=== PATIENT | male | born 1930 | race Caucasian/White ===

== ENCOUNTER 2016-06-21 12:34 | Inpatient (IN) | payer OTHER ==
[2016-06-21] MEDS ORDERED: Sodium Chloride 0.9% 500 ML PRIMARY IV ONE (12:53)
[2016-06-21] MEDS ORDERED: NORMAL SALINE 10 ML SYRINGE FLUSH IVP PRN ×2 (12:53→16:47)
[2016-06-21 13:09] LABS: BASOPHILS # (AUTO) 0.02 10*3/UL; BASOPHILS % (AUTO) 0.3 % (0-1); EOSINOPHILS % (AUTO) 0.9 % (0-8); HEMATOCRIT 39.4 % (42.0-52.0); HEMOGLOBIN 12.9 g/dL (14.0-18.0); IMM GRAN % (AUTO) 0.7 % (0-5); IMM GRAN# (AUTO) 0.05 10*3/UL; LYMPHOCYTES # (AUTO) 1.05 10*3/uL; LYMPHOCYTES % (AUTO) 13.8 % (10-50); MEAN CORPUSCULAR HGB CONC 32.7 g/dL (33-37); MEAN PLATELET VOLUME 9.4 FL (7.4-12.2); MONOCYTES # (AUTO) 0.86 10*3/UL (0.3-0.8); MONOCYTES % (AUTO) 11.3 % (5-15); NEUTROPHILS # (AUTO) 5.55 10*3/UL; RDW COEFFICIENT OF VARIATION 15.6 % (11.5-14.5)
[2016-06-21 13:11] LABS: PLATELET MORPHOLOGY COMMENT NORMAL MORPHOLOGY (NORM)
--- NOTE | 2016-06-21 13:18 | PDOC ---
General Adult HPI - General Chief Complaint: General Medical Stated Complaint: low blood pressure at home Date Seen by Provider: 06/21/16 Time Seen by Provider: 12:40 Source: POSITIVE: Patient Exam Limitations: POSITIVE: No limitations Nurse's Notes Reviewed & Considered: Yes - History of Present Illness Initial Comment: The patient is an 85-year-old male who presents to the emergency department with lightheadedness and low blood pressure. He states that he developed upper respiratory symptoms approximately a week ago. He has had increase in productive cough and shortness of breath. He was seen at the walk-in clinic on the and started on doxycycline. He however has not had any improvement. He also developed some increased swelling in his legs and thought that he may have some component of congestive heart failure. He therefore started taking his diuretic medicine a couple days ago. The swelling in his legs has improved however he still has a small amount of swelling. Today he felt very weak and lightheaded at home and checked his blood pressure. His blood pressure at home was in the 50s. His lightheadedness was worse with standing. He denies any associated chest pain, headache, numbness or weakness in his extremities. He has not had any significant fevers or chills. He does continue to have productive cough. He states he is feeling better currently. On arrival to the emergency room his blood pressure was in the 1 teens with a slight drop with standing. Have you received a tetanus shot in the past 10 years?: Unknown - Patient Home Medications Home Medications: Home Medications Aspirin [Aspirin EC] 81 mg ORAL QD 30 Days 05/15/12 Glucosa Aggarwal 2Kcl/Chondroitin Aggarwal [Glucosamine Chondroitin Caplet] 1 each PO QD 30 Days 05/15/12 Naproxen 250 mg PO BID tab 04/02/14 Cetirizine HCl [Zyrtec] 1 tab PO QD PRN #90 tab 09/07/14 Cholecalciferol (Vitamin D3) [Vitamin D3] 1 cap PO QD #30 cap 04/30/15 Omeprazole [Prilosec] 1 tab PO QD #90 cap 08/24/15 Ranolazine [Ranexa] 1 tab PO BID #180 tab 10/14/15 Albuterol Sulfate [Proair Hfa] 1 - 2 puff INH Q4-6H #1 inhaler 10/21/15 Nitroglycerin 1 tab SL PRN #30 tab 11/05/15 Levothyroxine Sodium 1 tab PO QD #90 tab 11/22/15 Warfarin Sodium [Coumadin] 2.5 mg PO QD #90 tab 11/29/15 Carvedilol [Coreg] 1 tab PO BID #180 tab 01/03/16 Quinapril HCl 1 tab PO QD #90 tab 01/13/16 Nitroglycerin 1 cap PO Q12H #60 cap 04/10/16 Doxycycline Monohydrate 100 mg PO BID #20 cap 06/15/16 Furosemide 40 mg PO BID 06/21/16 Potassium Gluconate [Potassium] 99 mg PO BID 06/21/16 Pravastatin Sodium [Pravachol] 0.5 tab PO QD #45 tab 06/21/16 - Patient Allergies Allergies/Adverse Reactions: Allergies Allergy/AdvReac Type Severity Reaction Status Date / Time Penicillins Allergy Severe anaphylaxsi Verified 06/21/16 12:46 s venom-wasp Allergy Severe RASH Verified 06/21/16 12:46 Past Medical History - heen HEENT History: Cataracts, Dentures/Partials Additional HEENT History: BILAT RETINAL DETACHEMENT/UPPER AND LOWER DENTURES Cardiovascular History: Hypertension, Arrhythmia, Hyperlipidemia Additional Cardiovasular History: 5 vessel CABG/A-FIB/CAROTID ARTERY STENOSIS Respiratory History: Pneumonia Additional Respiratory History: PNEUMONIA MULTIPLE TIMES. 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 Neurological History: Denies History Blood Disorders:  Additional Blood Disorders History: CURRENTLY TAKES ASA/COUMADIN DUE TO TREATMENT FOR AFIB Psychiatric History: Denies History History of Sexually Transmitted Diseases: No Cancer History: Skin History of MDRO: No History of Other Communicable Diseases: No Alcohol Use: Occasionally Substance Use Type: None Previous Surgical History: Yes Type / Date of Surgery: CABG 5 VESSEL 1990/LEFT ERNAL ARTERY STENTING 2007/L PETE 2005/LUMBAR DISC SURGICAL REPAIR 1977/TONSILLECTOMY/RENAL DETACHMENT 2009& 2010/MULTIPLE BASAL CELL CARCINOMAS/BILAT CATERACTS/VASECTOMY Anesthesia Reactions: No Malignant Hyperthermia: No Significant Family History: Heart disease, Cancer, Diabetes, Hypertension Additional Family History: FATHER- DIABETES Past Medical History Reviewed: Reviewed - No Changes ROS - Limitations ROS Limitations: No Limitations Constitution: DENIES: Chills, Fever Cardiovascular: REPORTS: Blood Pressure Problem (Low blood pressure at home prior to coming to the emergency room), Edema. DENIES: Chest Pain, Heart Palpitations Respiratory: REPORTS: Cough Productive (Yellow phlegm), Shortness Of Breath Neurological: DENIES: Headache, Numbness, Weakness Gastrointestinal: REPORTS: Denies GI Symptoms Musculoskeletal: REPORTS: Lower Extremity Swelling Eyes: REPORTS: Denies Symptoms ENT: REPORTS: Denies Symptoms Skin: DENIES: Rash General Adult Exam - General Appearance General Appearance: POSITIVE: Alert, Cooperative, No Acute Distress - HEENT HEENT: POSITIVE: Head Inspection Nml, Eyes Inspection Nml, Ears Inspection Nml, Pharynx Inspect. Nml - Neck Neck: POSITIVE: Normal Inspection - Respiratory Respiratory: POSITIVE: No Respiratory Distress, Other (The patient was hypoxic initially on room air with sats of 87%. This has improved on oxygen per nasal cannula. He has diminished breath sounds on the right and some rhonchi noted on the left most prominent in the base) - Cardiovascular Cardiovascular: POSITIVE: Regular Rate & Rhythm Peripheral Pulses: Dorsalis-pedis (R): 2+, Dorsalis-pedis (L): 2+ - Abdomen Abdomen: Soft: (All Quadrants), Denies Tenderness: (All Quadrants), No Distention: (All Quadrants) - Back Back: POSITIVE: Normal Inspection - Skin Skin: POSITIVE: Normal Color, No Rash - Extremities Extremity: Normal ROM: (All Extremities) Additional Extremities Details: 1+ pitting edema in the lower extremities bilaterally - Neurological / Psychological Neurological: POSITIVE: Oriented X3, Motor Normal, Sensation Normal, Other (No focal neurologic deficits) General Adult Progress - Results Reviewed by me Xrays/CTs/US Reviewed by me: Yes Discussed with Radiologist: Yes Radiology Findings: Portable chest x-ray shows a right-sided pleural effusion per radiologist. CT PE protocol is negative for PE. He does have a medium sized right-sided pleural effusion with airspace disease in the right lower lung per radiologist. Lab Results Reviewed: Yes Lab Results:: Laboratory Results 06/21/16 Range/Units 13:06 WBC 7.60 (4.8-10.8) 10^3/uL RBC 4.60 L (4.70-6.10) 10^6/uL Hgb 12.9 L (14.0-18.0) g/dL Hct 39.4 L (42.0-52.0) % MCV 85.7 (80-90) FL MCH 28.0 (27-31) PG MCHC 32.7 L (33-37) g/dL RDW Std Deviation 48.4 (39-50) fL RDW Coeff of Shivam 15.6 H (11.5-14.5) % Plt Count 242 (140-350) 10*3/uL MPV 9.4 (7.4-12.2) FL Immature Gran % (Auto) 0.7 (0-5) % Neut % (Auto) 73.0 (50-80) % Lymph % (Auto) 13.8 (10-50) % [place] % (Auto) 11.3 (5-15) % Eos % (Auto) 0.9 (0-8) % Baso % (Auto) 0.3 (0-1) % Immature Gran # (Auto) 0.05 10*3/UL Neut # (Auto) 5.55 10*3/UL Lymph # (Auto) 1.05 10*3/uL [place] # (Auto) 0.86 H (0.3-0.8) 10*3/UL Eos # (Auto) 0.07 10*3/UL Baso # (Auto) 0.02 10*3/UL WBC Morphology Comment Normal morphology (NORM) Plt Morphology Comment Normal morphology (NORM) RBC Morph Comment Normal morphology (NORM) PT 38.0 H (9.7-11.4) secs INR 3.59 (0.00-5.90) N/A D-Dimer 0.63 H (0.00-0.59) mg/L Sodium 138 (135-145) meq/L Potassium 5.0 (3.8-5.2) meq/L Chloride 97 L (98-112) meq/L Carbon Dioxide 29 (23-33) meq/L Anion Gap 12 (5-20) BUN 21 (7-22) mg/dL Creatinine 1.1 (0.70-1.50) mg/dL Estimated GFR [employer] BUN/Creatinine Ratio 19.09 (6-20) Glucose 106 (78-110) mg/dL Calculated Osmolality 288.0 (267-292) mOsm/kg Lactic Acid 1.7 (0.70-2.10) MMOL/L Calcium 9.1 (8.7-10.7) mg/dL Magnesium 1.6 (1.6-2.4) mg/dL Total Bilirubin 1.0 (0.3-1.2) mg/dL AST 43 (21-57) IU/L ALT 28 (21-72) IU/L Alkaline Phosphatase 119 (38-126) IU/L Troponin I 0.010 (< 0.040) ng/mL C-Reactive Protein 0.2 (0.0-0.9) mg/dL NT-Pro-B Natriuret Pep 349.0 (0-450) PG/ML Total Protein 7.6 (6.1-8.0) g/dL Albumin 4.5 (3.5-4.8) g/dL Globulin 3.1 (2.50-4.10) g/dL Albumin/Globulin Ratio 1.40 (1.3-2.0) mg/g EKG Interpreted/Reviewed By Me:: Yes EKG Interpretation:: POSITIVE: Other (Atrial fibrillation with no acute ST segment or T-wave changes.) - Patient's Progress MDM / ED Course: The patient's oxygen saturation was 87% on room air on arrival. He was placed on oxygen per nasal cannula. Orthostatic vitals were taken, he had a minimal drop in blood pressure with standing. An IV was established and he did receive a 500 mL bolus of normal saline. Blood cultures and lactate were drawn with IV start. X-ray and laboratory findings were discussed with the patient and his family. He does have a large right-sided pleural effusion and some airspace disease in the right lower lobe. The etiology of this is unclear however may represent a pneumonia with associated effusion. Clinically this would make the most sense. The patient is hypoxic on room air. The patient likely would benefit from drainage of the effusion. The patient is discussed with Dr. Agee has agreed to admit the patient for further treatment. He will be started on antibiotics. He states that he had anaphylactic reactions to penicillins and he therefore does not take penicillins or cephalosporins. He subsequently was given Levaquin 750 mg IV. - Consult Counseled: POSITIVE: Patient, Family, RE: Lab Results, RE: Radiology Results, RE : DX Patient Care Time - Estimated PCT Patient Care Time (In Minutes): 45 Vital Signs - Recent Vital Signs Vital Signs: Vital Signs (Last 8 hours) Temp Pulse Pulse Pulse Pulse Resp BP 06/21/16 12:38 94 98 98 06/21/16 12:35 97.5 F 104 H 24 118/68 BP BP BP Pulse Ox 06/21/16 12:38 115/72 140/28 91/58 06/21/16 12:35 87 - VS Reviewed Vital Signs Reviewed: Yes Discharge Clinical Impression: Pleural effusion on right, Pneumonia, Hypoxia, Chronic atrial fibrillation Discharge Disposition: Admit to Inpatient Condition: Stable Date Decision to Admit to Inpatient: 06/21/16 Time Decision to Admit to Inpatient: 15:00
--- NOTE | 2016-06-21 13:34 | EKG ---
[address] [address] Measurements Intervals [place] Rate: 89 P: [place]: 0 QRS: 65 QRSD: 96 T: 75 QT: 390 QTc: 437 Interpretive Statements ATRIAL FLUTTER/TACHYCARDIA NONSPECIFIC T-WAVE ABNORMALITY ABNORMAL RHYTHM ECG No previous ECG available for comparison Electronically Signed On 06-21-16 16:13:28 MST by Juan Escamilla [id number]
[2016-06-21 13:36] LABS: BLOOD UREA NITROGEN 21 mg/dL (7-22); BUN/CREATININE RATIO 19.09 (6-20); CHLORIDE 97 meq/L (98-112); CREATININE 1.1 mg/dL (0.70-1.50); SODIUM 138 meq/L (135-145)
[2016-06-21 13:37] LABS: ASPARTATE AMINO TRANSFERASE 43 IU/L (21-57); C-REACTIVE PROTEIN 0.2 mg/dL (0.0-0.9); CALCIUM 9.1 mg/dL (8.7-10.7); GLUCOSE 106 mg/dL (78-110); LACTATE 1.7 MMOL/L (0.70-2.10); MAGNESIUM 1.6 mg/dL (1.6-2.4); TOTAL PROTEIN 7.6 g/dL (6.1-8.0)
--- NOTE | 2016-06-21 14:24 | DI ---
CT CTA CHEST NONCORONARY W/WO,06/21/2016 1:50 PM: Clinical History: Hypoxia and elevated d-dimer. Previous Exam: November 19, 2015 Findings: Multiple helically acquired CT images are obtained following the intravenous administration of 75 cc of Isovue 300. The pulmonary arteries are normal without filling defect or truncation. Postsurgical changes are seen consistent with CABG. Peripheral vascular calcifications are also seen. There is airspace disease within the right lung base. There is a medium-sized right pleural effusion . Diffuse degenerative changes of the spine are noted. The liver, spleen and pancreas are not completely evaluated, but are unremarkable. Impression: 1. Enlarging right pleural effusion. 2. No evidence of pulmonary embolism. 3. Airspace disease within the right lung base. Cannot rule out an underlying mass. Recommend followu p imaging after treatment of the pleural effusion.
--- NOTE | 2016-06-21 14:26 | DI ---
XR CXR 1VW,06/21/2016 12:53 PM: Clinical History: Hypoxia Previous Exam: None at this facility. Findings: A single frontal radiograph of the chest is obtained, and demonstrates a large right pleural effusion . Postsurgical changes are seen consistent with prior CABG. Impression: Large right pleural effusion.
[2016-06-21] MEDS ORDERED: Levofloxacin 750mg (Premix) 750 MG in Dextrose 1 BAG IV ONE (15:02)
--- NOTE | 2016-06-21 17:01 | PDOC ---
History and Physical - History of Present Illness Date and Time of Service: 06/21/2016 5 PM Chief Complaint: Cough, shortness of breath for a week. Dizziness and low blood pressure today. History of Present Illness: This is 85 years old male with medical history significant for history of coronary artery disease with previous CABG, atrial fibrillation, hypertension, history of melanoma resection last year, hyperlipidemia, hypothyroidism who started to develop coughing he said probably about 10 days ago with some phlegm production which is yellow, symptoms got worse so a week ago he went to the urgent clinic they gave him doxycycline and prednisone. Maybe the cough somewhat better but he developed swelling in his legs on Sunday and started to take Lasix on Sunday. Today he felt earlier dizzy, lightheaded so he checked his blood pressure and he reported that his blood pressure was low in the 50s systolic and because of that he came into the ER. His blood pressure was normal when he came in the ER but did drop when he stood up. He had investigation that included a CT of the chest which showed a moderate-sized pleural effusion. He is admitted for further management. He did get a dose of antibiotics and a bolus of fluid. He did report some shortness of breath that been going on for few weeks. The swelling in his legs he said it's better. Past Medical History Medical History: 1. Coronary artery disease status post CABG in . 2. History of diabetes said he lost significant weight and he is not on any medication now. 3. Atrial fibrillation on anticoagulation. 4. Hypertension. 5. Hypothyroidism. 6. Hyperlipidemia. 7. 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 8. GERD. 9. Renal artery stenosis status post left renal artery stenting 2007. 10. History of melanoma of the right forearm status post to excision a year ago. 11. History of basal cell carcinoma Surgical History: 1. CABG. 2. Left endarterectomy. 3. Left total hip arthroplasty. 4. Herniated lumbar disc surgery and 80. 5. Right retinal detachment status post surgery in 2009. 6. History of left retinal discharge was status post surgery 2010 Pertinent Family History: Father at age 87 with cerebrovascular disease and questionable hypertension. Mother at age 87 from "old age" with a history of hypertension and a non-malignant abdominal tumor Tobacco Use: Former Smoker Substance Use Type: None Alcohol Use: Occasionally Medication / Allergies Home Medications: Home Medications Medication Instructions Recorded Confirmed Type Aspirin [Aspirin EC] 81 mg ORAL QD 30 Days 05/15/12 06/21/16 Clinic Glucosa Aggarwal 2Kcl/Chondroitin Aggarwal 1 each PO QD 30 Days 05/15/12 06/21/16 Clinic [Glucosamine Chondroitin Caplet] Naproxen 250 mg PO BID tab 04/02/14 06/21/16 History Cetirizine HCl [Zyrtec] 1 tab PO QD PRN #90 tab 09/07/14 06/21/16 Clinic Cholecalciferol (Vitamin D3) 1 cap PO QD #30 cap 04/30/15 06/21/16 Clinic [Vitamin D3] Omeprazole [Prilosec] 1 tab PO QD #90 cap 08/24/15 06/21/16 Clinic Ranolazine [Ranexa] 1 tab PO BID #180 tab 10/14/15 06/21/16 Clinic Albuterol Sulfate [Proair Hfa] 1 - 2 puff INH Q4-6H #1 inhaler 10/21/15 Clinic Nitroglycerin 1 tab SL PRN #30 tab 11/05/15 06/21/16 Clinic Levothyroxine Sodium 1 tab PO QD #90 tab 11/22/15 06/21/16 Clinic Warfarin Sodium [Coumadin] 2.5 mg PO QD #90 tab 11/29/15 06/21/16 Clinic Carvedilol [Coreg] 1 tab PO BID #180 tab 01/03/16 06/21/16 Clinic Quinapril HCl 1 tab PO QD #90 tab 01/13/16 06/21/16 Clinic Nitroglycerin 1 cap PO Q12H #60 cap 04/10/16 06/21/16 Clinic Doxycycline Monohydrate 100 mg PO BID #20 cap 06/15/16 06/21/16 Clinic Furosemide 40 mg PO BID 06/21/16 06/21/16 History Potassium Gluconate [Potassium] 99 mg PO BID 06/21/16 06/21/16 History Pravastatin Sodium [Pravachol] 0.5 tab PO QD #45 tab 06/21/16 Clinic Allergies/Adverse Reactions: Allergies Allergy/AdvReac Type Severity Reaction Status Date / Time Penicillins Allergy Severe anaphylaxsi Verified 06/22/16 06:23 s venom-wasp Allergy Severe RASH Verified 06/22/16 06:23 Review of Systems - Review of Systems All Systems: Reviewed & No Additional Complaints Except as Stated Exam - Vitals Vital Signs: Vital Signs Height 5 ft 9.5 in Weight 213 lb 4.8 oz - General General Appearance: POSITIVE: No Acute Distress, Cooperative - Head Head Exam: POSITIVE: Normal Inspection, Atraumatic - Eye Eye Exam: POSITIVE: Normal Appearance - ENT ENT Exam: POSITIVE: Normal Exam - Neck Neck Exam: POSITIVE: Normal Inspection - Respiratory Additional Respiratory Exam Details: Decreased breath sounds on the right midlung and down posteriorly - Cardiovascular Cardiovascular Exam: POSITIVE: Irregular Rhythm - GI/Abdominal GI/Abdominal Exam: POSITIVE: Normal Bowel Sounds, Non Tender, Non Distended, Soft - Rectal Rectal Exam: POSITIVE: Deferred - External Exam: POSITIVE: Deferred - Extremities Extremities Exam: POSITIVE: Pedal Edema - Back Back Exam: POSITIVE: Normal Inspection - Neurological Neurological Exam: POSITIVE: Alert, Oriented x 3, CN II-XII Intact, Moves All Extremities Equally - Psychiatric Psychiatric Exam: POSITIVE: Normal Affect - Integumentary Integumentary Exam: POSITIVE: Normal Color Results - Labs CBC and BMP: 06/21/16 13:06 06/21/16 13:06 Assessment and Plan - Patient Problems (1) Pleural effusion, right Current Visit: Yes Status: Acute Comment: Not sure if there is a pneumonia as his white count is normal I think we will treat as such until we figure out what's the reason for the effusion. I did talk to him about thoracocentesis and he is okay with that and I did tell him that we need to reverse the effect of the Coumadin first and he is okay getting vitamin K. We'll give vitamin K and order an ultrasound guided thoracocentesis tomorrow. (2) Pneumonia Current Visit: Yes Status: Acute Comment: There is a question of pneumonia although its not clear, I think we'll continue with antibiotics for now. Waiting for cultures. (3) Chronic atrial fibrillation Current Visit: Yes Status: Acute Comment: Continue previous medication but will see his blood pressure and then decide whether we need to cut back on the dosage of his medications. But hold off on the Coumadin for now. (4) Hypothyroidism Current Visit: Yes Status: Acute Comment: Same medications (5) Hyperlipidemia Current Visit: Yes Status: Acute Comment: Same medications
[2016-06-21] MEDS: Pravastatin Tab 40 MG TAB PO SCH (20:23)
[2016-06-21] MEDS ORDERED: CARVEDILOL 12.5 MG TABLET PO SCH (21:00)
[2016-06-21] MEDS: NITROGLYCERIN 6.5 MG PO SCH (21:00)
[2016-06-21] MEDS: RANOLAZINE 500 MG PO SCH (21:23)
[2016-06-21] MEDS ORDERED: Senna Tab 8.6 MG TAB PO PRN (23:30)
[2016-06-22] MEDS: LEVOTHYROXINE 50 MCG TABLET PO SCH (05:34)
[2016-06-22 06:51] LABS: PROTHROMBIN TIME 16.9 secs (9.7-11.4)
[2016-06-22] MEDS ORDERED: PHYTONADIONE 10 MG/1 ML AMPULE ONE (07:12)
--- NOTE | 2016-06-22 07:22 | PDOC(PROG) ---
Date and Time of Service: 06/22/2016 7:19 AM Interval History: Subjective Patient feels better he is not dizzy anymore, continued to cough still there is some yellow phlegm production. Also have a postnasal drip based on His description. No shortness of breath. Objective : Data - Labs CBC and BMP: 06/21/16 13:06 06/21/16 13:06 Labs - Last 24 Hours: Laboratory Results 06/22/16 Range/Units 06:06 PT 16.9 H (9.7-11.4) secs INR 1.62 (0.00-5.90) N/A Objective : Exam - General General Appearance: No Acute Distress, Cooperative - Head Head Exam: Normal Inspection, Atraumatic - Eye Eye Exam: Normal Appearance - ENT ENT Exam: Normal Exam - Neck Neck Exam: Normal Inspection - Respiratory Additional Respiratory Exam Details: Decreased breath sounds right side from midlung and down posteriorly - Cardiovascular Cardiovascular Exam: Irregular Rhythm - GI/Abdominal GI/Abdominal Exam: Normal Bowel Sounds, Non Tender, Non Distended, Soft - Rectal Rectal Exam: Deferred - External Exam: Deferred - Extremities Extremities Exam: Normal Inspection - Back Back Exam: Normal Inspection - Neurological Neurological Exam: Alert, CN II-XII Intact - Psychiatric Psychiatric Exam: Normal Affect - Integumentary Integumentary Exam: Normal Color Assessment and Plan - Patient Problems (1) Pleural effusion, right Current Visit: Yes Status: Acute Comment: INR is 1.6 I spoke yesterday with the radiology who wanted the level to be 1.5 or lower, the patient wanted to have the procedure as soon as possible he does not want to wait so he is okay getting another vitamin K so we' ll give it to him and then we'll recheck his INR again. Hopefully will be able to do it today. we'll send it for usual testing. (2) Pneumonia Current Visit: Yes Status: Acute Comment: Question of pneumonia continue with antibiotics. (3) Chronic atrial fibrillation Current Visit: Yes Status: Acute Comment: Continue same medication, will increase his the dosage of the Coreg as his blood pressure seems to be higher now. We'll see what happened to his heart rate post drainage if it remain fast with metastatic additional medications (4) Hypothyroidism Current Visit: Yes Status: Acute Comment: Same medications. (5) Hyperlipidemia Current Visit: Yes Status: Acute Comment: Same medications (6) Sinusitis Current Visit: Yes Status: Acute Comment: I think there is also sinusitis will add steroid nasal spray.
[2016-06-22] MEDS ORDERED: Sodium Chloride 0.9% 50 ML IV ONE (07:31)
[2016-06-22] MEDS ORDERED: CARVEDILOL 12.5 MG TABLET PO SCH (09:00)
[2016-06-22] MEDS ORDERED: QUINAPRIL 20 MG TABLET PO SCH ×2 (09:00→21:00)
[2016-06-22] MEDS: CARVEDILOL 12.5 MG TABLET PO SCH ×2 (09:02→20:12)
[2016-06-22] MEDS: NITROGLYCERIN 6.5 MG PO SCH ×2 (09:03→20:13)
[2016-06-22] MEDS: ASPIRIN EC 81 MG TABLET PO SCH (09:03)
[2016-06-22] MEDS: OMEPRAZOLE 20 MG CAPSULE PO SCH (09:03)
[2016-06-22] MEDS: FLUTICASONE PROPIONATE 16 GRAM (120 SPRAYS / BOTTLE) ENOS SCH (09:03)
[2016-06-22] MEDS: DOCUSATE 100 MG CAPSULE PO SCH ×2 (09:03→20:13)
[2016-06-22] MEDS: RANOLAZINE 500 MG PO SCH ×2 (11:59→20:12)
[2016-06-22 12:37] LABS: PROTHROMBIN TIME 13.7 secs (9.7-11.4)
[2016-06-22] MEDS: Levofloxacin 750mg (Premix) 750 MG in Dextrose 1 BAG IV SCH (17:30)
[2016-06-22 17:45] LABS: WBC,PLEURAL FLUID 1.863 10^3/uL
[2016-06-22 17:46] LABS: RBC, BODY FLUID 0.103 10*6/uL; WBC, BODY FLUID 1.863 10*3/uL
--- NOTE | 2016-06-22 19:16 | EKG ---
[address] [place] [address] Measurements Intervals [place] Rate: 106 P: [place]: 0 QRS: 51 QRSD: 96 T: 180 QT: 357 QTc: 419 Interpretive Statements ATRIAL FIBRILLATION WITH RAPID VENTRICULAR RESPONSE NONSPECIFIC ST & T-WAVE ABNORMALITY Compared to ECG 06/21/2016 13:34:34 Atrial flutter no longer present T-wave abnormality still present Electronically Signed On 06-23-16 17:26:26 MST by Juan Escamilla [id number]
[2016-06-22] MEDS: Pravastatin Tab 40 MG TAB PO SCH (20:13)
[2016-06-22] MEDS ORDERED: QUINAPRIL 10 MG PO SCH (21:00)
--- NOTE | 2016-06-22 21:29 | DI ---
THORACENTESIS,06/22/2016 9:00 AM: Clinical History: Right pleural effusion and history of melanoma. Previous Exam: CT angiogram of the chest performed June 21, 2016 Procedure: Risks, benefits, and alternatives were explained to the patient and informed written conse nt obtained. Prescreening was used to evaluate the right pleural effusion. The patient was placed in the sitting position, and the posterior chest wall prepped and draped in us ua sterile fashion. 1% lidocaine was used for local anesthesia. A small skin incision was made and a 5 M[place] catheter was advanced into the pleural space through th e bore of a large thoracentesis needle. Approximately 700 cc of sanguinous fluid was removed until the patient started to cough. Post procedure imaging demonstrated a smaller but still significant right pleural effusion. The patient tolerated the procedure well and the specimen was sent for evaluation to the laboratory. Findings: Preprocedure images demonstrate a large right pleural effusion. Post procedure imaging demonstrates decreased size of a right pleural effusion. Impression: Successful right pleural effusion. Only 700 cc of fluid were removed. If there is further need for pl euracentesis, recommend further consultation. The amount of fluid removed was intentionally limited to prevent flash pulmonary edema.
--- NOTE | 2016-06-22 21:32 | DI ---
XR CXR 1VW,06/22/2016 6:05 PM: Clinical History: Status post thoracentesis. Previous Exam: June 21, 2016 Findings: A single frontal radiograph of the chest is obtained, and demonstrates mild interval decrease in size of a right pleural effusion. There is some prominence of the lower mediastinum in the region of the costomanubrial joint. Postsurgical changes are also seen involving the cardiomediastinum consistent with CABG. There is no evidence of pneumothorax. Degenerative changes of the shoulders are seen. Impression: Slightly improved right pleural effusion with significant residual right pleural effusion. No evidence of pneumothorax.
[2016-06-23] MEDS: LEVOTHYROXINE 50 MCG TABLET PO SCH (05:38)
--- NOTE | 2016-06-23 08:19 | PDOC(PROG) ---
Date and Time of Service: 06/23/2016 8:15 AM Interval History: subjective Patient's feel better, he is denying shortness of breath. Still having the cough that's mainly when he lays down he said. Did mention for the first time that he has some reflux symptoms being going on for years sometimes he fell that evening goes to his nose. He has also at times trouble swallowing. Objective : Data - Labs CBC and BMP: 06/21/16 13:06 06/21/16 13:06 Labs - Last 24 Hours: Laboratory Results 06/22/16 06/22/16 06/22/16 Range/Units 06:00 12:00 16:59 PT 13.7 H (9.7-11.4) secs INR 1.32 (0.00-5.90) N/A Lactate Dehydrogenase 481 (313-618) IU/L Fluid Type Pleural Fluid WBC 1.863 10*3/uL Fluid RBC 0.103 10*6/uL Fluid Polynuclear WBCs 14.4 % Fluid Mononuclear WBCs 85.6 % Fluid Glucose 115 Fluid Total Protein 4.8 Pleural pH 8 Pleural WBC 1.863 10^3/uL Pleural Mononuclear 85.6 % Pleural Polynuclear WBC 14.4 % Objective : Exam - General General Appearance: No Acute Distress, Cooperative - Head Head Exam: Normal Inspection - Eye Eye Exam: Normal Appearance - ENT ENT Exam: Normal Exam - Neck Neck Exam: Normal Inspection - Respiratory Additional Respiratory Exam Details: Decreased breath sounds on the right lung base - Cardiovascular Cardiovascular Exam: Irregular Rhythm - GI/Abdominal GI/Abdominal Exam: Normal Bowel Sounds, Non Tender, Non Distended, Soft - Rectal Rectal Exam: Deferred - Extremities Extremities Exam: Normal Inspection - Back Back Exam: Normal Inspection - Neurological Neurological Exam: Alert, Oriented x 3, CN II-XII Intact - Psychiatric Psychiatric Exam: Normal Affect Assessment and Plan - Patient Problems (1) Pleural effusion, right Current Visit: Yes Status: Acute Comment: The protein content suggest this is an exeduative effusion, there is predominance of mononuclear cells. I don't have the LDH level yet. Continue antibiotics this may be a parapneumonic effusion. We did send for cytology. I did tell him that post discharge this need to be followed up, to make sure that it resolves. He told me that he was supposed to have a PET scan yesterday however he is here in the hospital. And he will reschedule his appointment. Apparently there was a spots on the right lung and small pleural effusion on the CT that he had 3 months ago. That's was done in [place]. (2) Pneumonia Current Visit: Yes Status: Acute Comment: We treating as a possible pneumonia continue antibiotics. Will do a swallow evaluation (3) Chronic atrial fibrillation Current Visit: Yes Status: Acute Comment: His heart rate is more on the fast side I was thinking of adding maybe digoxin but he wanted me to speak with Dr. Bragg before I adjust medication so I'll call him first. I think we can restart his Coumadin (4) Hypothyroidism Current Visit: Yes Status: Acute Comment: Same medications (5) Hyperlipidemia Current Visit: Yes Status: Acute Comment: Same med (6) Sinusitis Current Visit: Yes Status: Acute Comment: Same med
[2016-06-23] MEDS: ASPIRIN EC 81 MG TABLET PO SCH (08:39)
[2016-06-23] MEDS: OMEPRAZOLE 20 MG CAPSULE PO SCH (08:39)
[2016-06-23] MEDS: CARVEDILOL 12.5 MG TABLET PO SCH ×2 (08:39→20:33)
[2016-06-23] MEDS: FLUTICASONE PROPIONATE 16 GRAM (120 SPRAYS / BOTTLE) ENOS SCH (08:39)
[2016-06-23] MEDS: RANOLAZINE 500 MG PO SCH ×2 (08:40→20:33)
[2016-06-23] MEDS: DOCUSATE 100 MG CAPSULE PO SCH ×2 (08:40→20:34)
[2016-06-23] MEDS: NITROGLYCERIN 6.5 MG PO SCH ×2 (08:40→20:33)
[2016-06-23] MEDS: DIGOXIN 125 MCG TABLET PO SCH (10:19)
--- NOTE | 2016-06-23 12:23 | PTI REPORT ---
Thank you for the referral of Joni Restrepo. He was seen on 06/22/16 for an inpatient evaluation secondary to pneumonia. SUBJECTIVE: The patient is an 85-year-old male. At the time of the evaluation the patient' s was present. She states prior to coming to the hospital he was very active at home; he was not using any type of assistive device, was not on oxygen , and he was chopping his own wood. The patient states he was brought to the hospital due to not feeling well and being admitted due to pneumonia. The patient made comments about having difficulty aspirating on fluids. Please see the occupational therapy evaluation for further details. PAST MEDICAL HISTORY: Past medical history can be found in the patient's medical record. OBJECTIVE FINDINGS: Pain: The patient reports pain in his left shoulder only. Bed mobility: The patient is able to perform bed mobility with stand by assistance. Ambulation: The patient is able to ambulate over 100 feet with the use of front wheeled walker, gait belt, and stand by assistance. Range of motion: The patient's upper extremity and lower extremity active range of motion are within functional limits. Strength: The patient's bilateral lower extremity strength was 5-/5. Balance: The patient has good standing balance at this time with the use of the front wheeled walker. Oxygen: At the time of the evaluation the patient was on one liter of oxygen via nasal cannula. ASSESSMENT: Problem List: Decreased endurance Decreased ability to perform independent tasks Physical Therapy Goals: To be met by discharge from inpatient: Patient will be able to tolerate up to 45 minutes of continuous activity in order to return home to perform baseline level of activity safely and without difficulty. TREATMENT PLAN: Patient will be seen B.I.D during the week and one time per day over the weekend as an inpatient to address the above goals and objectives. INITIAL TREATMENT: Treatment today consisted of the initial evaluation by PT and OT followed by the patient ambulating all the way downstairs with the use of the front wheeled walker, gait belt, and contact guard assistance without his oxygen. While down in therapy the patient's oxygen saturation was taken and he was placed back on one liter of oxygen in order to raise his oxygen saturation above 90%. He was able to perform the new step x10 minutes followed by an obstacle course on even and uneven surfaces, traversing over obstacles. This was followed by participating with occupational therapy exercises. While in the hospital we will progress with endurance activities. ISRA
[2016-06-23] MEDS ORDERED: DIGOXIN 125 MCG TABLET PO ONE (15:40)
--- NOTE | 2016-06-23 16:28 | OTI REPORT ---
Thank you for the referral of Joni Restrepo. He was seen on 06/22/16 for an occupational therapy inpatient evaluation secondary to pneumonia. SUBJECTIVE: The patient is an 85-year-old male who is being seen secondary to having pneumonia. The patient reports that he lives at home with his . Prior to admission he was independent with all activities of daily living. He states he likes to drive and complete things around his home. He states he is typically pretty independent with most daily skills. The patient reports that his main pain is coming from his chest from coughing. PAST MEDICAL HISTORY: Past medical history can be found in the patient's medical record. OBJECTIVE FINDINGS: Pain: The patient rates the pain in his chest as a 4/10 on the verbal analog scale (0=no pain, 10=worst pain). Strength: The patient demonstrated right shoulder strength of 4/5, elbow flexion /extension of 4/5, and wrist flexion extension of 4+/5. Strength in the left shoulder was 2/5. Range of motion: The patient does have a rotator cuff on the left side that has been long standing and he demonstrates approximately 40 degrees of shoulder flexion and 20 degrees of shoulder abduction. The left shoulder demonstrates minimal rotation. Activities of daily living: The patient was able to doff and don lower extremity clothing independently after set up. Transfers: The patient requires stand by to contact guard assist to perform functional transfers. Oxygen: The patient was on one liter of oxygen; he states he is typically not on oxygen in his home. ASSESSMENT: At this time the patient would benefit from skilled occupational therapy to address overall activity tolerance, energy conservation techniques, and to improve his overall strength and endurance. Short-Term Goals: To be met by discharge from inpatient: Patient will learn three energy conservation techniques that would improve his ability to conserve energy secondary to the pneumonia. Patient will be able to complete a shower independently. Patient will improve upper extremity strength to 5/5 to improve overall strength for functional transfers and daily living skills. Long-Term Goals: To be met following discharge from inpatient: Patient will be able to return home, demonstrating safety and independence with all activities of daily living and functional tasks. TREATMENT PLAN: Patient will be seen B.I.D during the week and one time per day over the weekend as an inpatient to address the above goals and objectives. INITIAL TREATMENT: Treatment today consisted of the initial evaluation followed by the patient completing lower extremity dressing independently after set up. ISRA
--- NOTE | 2016-06-23 16:59 | OTI REPORT ---
Thank you for the referral of Joni Restrepo. He was seen on 06/23/16 for an occupational therapy swallow evaluation secondary to pneumonia. SUBJECTIVE: The patient is an 85-year-old male who is being seen for a bedside swallow evaluation. He reports that he has acid reflux at night; sometimes it comes up into his sinuses and he can start to lose his breath as well as choke on some of the acid reflux that's coming up. He got to thinking about his swallowing troubles and he states that he has had them for approximately one year. He states sometimes he will choke when he swallows. He says that he does feel like it has gotten into his windpipe instead of his esophagus. The patient state he has had two weeks of pretty extreme coughing and sometimes he does struggle to swallow. The patient reports that he doesn't necessarily choke or cough on liquids, it is usually regular type foods that are going down into the throat. PAST MEDICAL HISTORY: Past medical history can be found in the patient's medical record. OBJECTIVE FINDINGS: Pre-Swallow Activities: Alertness and responsiveness: The patient was alert and responsive. Reliable responses: The patient had reliable yes and no responses. Facial symmetry: The patient demonstrated good facial symmetry. Volitional dry swallow: The patient demonstrated a volitional dry swallow. Following directions: The patient was able to follow two step directions. Cough: The patient's cough was very raspy. Nutrition and intake method: Nutrition and intake method over the last 24-hours has been a regular diet with thin liquids. Oxygen: The patient is on one liter of oxygen today; he is not normally on oxygen. Secretions: The patient demonstrated being able to handle his own secretions. Dentures: The patient does have dentures on the top and the bottom but he states that they are wore out. He does have a clicking in his jaw and the teeth but his dentist told him this was because the dentures were wore out. Lip control: The patient demonstrated good lip control. Lingual function: The patient demonstrated good lingual function for range of motion, strength, and coordination. Sensation: His sensation on the buccal, labial, and lingual areas were within normal limits. Gag reflex: The patient had an intact gag reflex. Feeding Assessment: Today we started with thin liquids including water. The patient was able to take several sips of water from a cup as well as a straw and did not demonstrate external signs of aspiration. His laryngeal elevation was slightly impaired; he has about 50% of laryngeal elevation on the three finger swallow. We went to pureed food; he had good bolus control and good swallow transit time with one to two swallows per bolus. Laryngeal elevation was approximately 50%. The patient was negative for coughing, pocketing, and drooling. His voice post feed was the same. We then went to mechanical soft including diced fruit and regular foods including bread and turkey as well as a dry cracker. The patient demonstrated good bolus control. His swallow transit time was within normal limits with one to two swallows per bolus. He was asked to take some water with the food. His laryngeal elevation was approximately 50% He was negative for cough after the swallow. He did cough once in a while; this could be from being sick with pneumonia or from the food itself. The patient has been taking medication with thin liquid at this point. The patient was able to self feed and position himself during the assessment. His swallow appears to be efficient for adequate PO intake; however, because of his decreased hyoid cartilage elevation and larynx abilities as well as his history including his swallow concerns, it would be highly beneficial for the patient to complete a modified barium swallow study at this point in time. The patient did not demonstrate aspiration externally with thin liquid or with regular food items. RECOMMENDATIONS: 1. Patient will complete a modified barium swallow study. 2. Patient should be sitting in an upright position at all times. 3. Patient should alternate bites of food with sips of liquid. ASSESSMENT: [] Short-Term Goals: To be met by discharge from inpatient: Patient will be able to [] Patient will be able to [] Patient will be able to [] Patient will be able to [] Long-Term Goals: To be met following discharge from inpatient: Patient will be able to [] Patient will be able to [] TREATMENT PLAN: Patient will be seen B.I.D during the week and one time per day over the weekend as an inpatient to address the above goals and objectives.[] INITIAL TREATMENT: [] MTDD
[2016-06-23] MEDS: Levofloxacin 750mg (Premix) 750 MG in Dextrose 1 BAG IV SCH (17:16)
[2016-06-23] MEDS: Pravastatin Tab 40 MG TAB PO SCH (20:34)
[2016-06-23] MEDS ORDERED: Warfarin 5 MG TAB PO SCH (21:00)
[2016-06-23] MEDS ORDERED: QUINAPRIL 10 MG PO SCH (21:00)
[2016-06-24] MEDS: LEVOTHYROXINE 50 MCG TABLET PO SCH (05:38)
[2016-06-24 05:59] LABS: BASOPHILS # (AUTO) 0.02 10*3/UL; BASOPHILS % (AUTO) 0.3 % (0-1); EOSINOPHILS % (AUTO) 1.5 % (0-8); HEMATOCRIT 38.6 % (42.0-52.0); HEMOGLOBIN 12.4 g/dL (14.0-18.0); IMM GRAN % (AUTO) 0.8 % (0-5); IMM GRAN# (AUTO) 0.06 10*3/UL; LYMPHOCYTES # (AUTO) 1.08 10*3/uL; LYMPHOCYTES % (AUTO) 14.3 % (10-50); MEAN CORPUSCULAR HEMOGLOBIN 27.1 PG (27-31); MEAN CORPUSCULAR HGB CONC 32.1 g/dL (33-37); MEAN PLATELET VOLUME 9.6 FL (7.4-12.2); MONOCYTES # (AUTO) 0.86 10*3/UL (0.3-0.8); MONOCYTES % (AUTO) 11.4 % (5-15); NEUTROPHILS % (AUTO) 71.7 % (50-80); RDW COEFFICIENT OF VARIATION 15.3 % (11.5-14.5); RED BLOOD COUNT 4.58 10^6/uL (4.70-6.10); WHITE BLOOD COUNT 7.53 10^3/uL (4.8-10.8)
[2016-06-24 06:16] LABS: PLATELET MORPHOLOGY COMMENT NORMAL MORPHOLOGY (NORM)
[2016-06-24 06:27] LABS: BUN/CREATININE RATIO 18.88 (6-20); CALCIUM 8.9 mg/dL (8.7-10.7); CREATININE 0.9 mg/dL (0.70-1.50); POTASSIUM 4.3 meq/L (3.8-5.2); PROTHROMBIN TIME 12.3 secs (9.7-11.4)
--- NOTE | 2016-06-24 07:52 | PDOC(PROG) ---
Date and Time of Service: 06/24/2016 7:49 AM Interval History: Subjective Patient feels a lot better, the postnasal drip is much improved, the cough is much improved. Breathing is better. He is not dizzy or lightheaded anymore. They could not do the modified barium study yesterday because the machine broke. I did give the occupational therapist the request from and they will call him once the machine is fixed to have the test done and I told him about that. Objective : Data - Labs CBC and BMP: 06/24/16 05:49 06/24/16 05:49 Labs - Last 24 Hours: Laboratory Results 06/24/16 Range/Units 05:49 WBC 7.53 (4.8-10.8) 10^3/uL RBC 4.58 L (4.70-6.10) 10^6/uL Hgb 12.4 L (14.0-18.0) g/dL Hct 38.6 L (42.0-52.0) % MCV 84.3 (80-90) FL MCH 27.1 (27-31) PG MCHC 32.1 L (33-37) g/dL RDW Std Deviation 46.4 (39-50) fL RDW Coeff of Shivam 15.3 H (11.5-14.5) % Plt Count 205 (140-350) 10*3/uL MPV 9.6 (7.4-12.2) FL Immature Gran % (Auto) 0.8 (0-5) % Neut % (Auto) 71.7 (50-80) % Lymph % (Auto) 14.3 (10-50) % [place] % (Auto) 11.4 (5-15) % Eos % (Auto) 1.5 (0-8) % Baso % (Auto) 0.3 (0-1) % Immature Gran # (Auto) 0.06 10*3/UL Neut # (Auto) 5.40 10*3/UL Lymph # (Auto) 1.08 10*3/uL [place] # (Auto) 0.86 H (0.3-0.8) 10*3/UL Eos # (Auto) 0.11 10*3/UL Baso # (Auto) 0.02 10*3/UL WBC Morphology Comment Normal morphology (NORM) Plt Morphology Comment Normal morphology (NORM) RBC Morph Comment Normal morphology (NORM) PT 12.3 H (9.7-11.4) secs INR 1.19 (0.00-5.90) N/A Sodium 132 L (135-145) meq/L Potassium 4.3 (3.8-5.2) meq/L Chloride 95 L (98-112) meq/L Carbon Dioxide 28 (23-33) meq/L Anion Gap 9 (5-20) BUN 17 (7-22) mg/dL Creatinine 0.9 (0.70-1.50) mg/dL Estimated GFR (>60 ml/min/1.73m(2)) BUN/Creatinine Ratio 18.88 (6-20) Glucose 126 H (78-110) mg/dL Calculated Osmolality 277.0 (267-292) mOsm/kg Calcium 8.9 (8.7-10.7) mg/dL Objective : Exam - General General Appearance: No Acute Distress, Cooperative - Head Head Exam: Normal Inspection, Atraumatic - Eye Eye Exam: Normal Appearance - ENT ENT Exam: Normal Exam - Neck Neck Exam: Normal Inspection - Respiratory Additional Respiratory Exam Details: Still have some decreased breath sound on the right lung posteriorly - Cardiovascular Cardiovascular Exam: Irregular Rhythm - GI/Abdominal GI/Abdominal Exam: Normal Bowel Sounds, Non Tender, Non Distended, Soft - Rectal Rectal Exam: Deferred - External Exam: Deferred - Extremities Extremities Exam: Normal Inspection - Back Back Exam: Normal Inspection - Neurological Neurological Exam: Alert, Oriented x 3, CN II-XII Intact, Moves All Extremities Equally - Psychiatric Psychiatric Exam: Normal Affect - Integumentary Integumentary Exam: Normal Color Assessment and Plan - Patient Problems (1) Pleural effusion, right Current Visit: Yes Status: Acute Comment: The pleural fusion is an exudative effusion based on the protein level , I still don't have the LDH level, cytology is pending. I did speak with Dr. Venegas he knows about him. He has an appointment with him on the . The patient need to have a PET scan rescheduled. Preferably before his appointment with the oncologist, he said he will try to get an appointment. I did tell him this may be a result of an infection or malignancy. (2) Pneumonia Current Visit: Yes Status: Acute Comment: There is questionable pneumonia, will give 2 more days of antibiotics. That would help also sinusitis. (3) Chronic atrial fibrillation Current Visit: Yes Status: Acute Comment: His rate is still not controlled well but I looked at his clinic visits and his heart rate being going fast for quite a few months now. I did speak with Dr. Bragg yesterday and he is okay with starting the digoxin. I think will put him on digoxin. Further adjustment to his medication can be done I think as an outpatient since thats being going on for quite a few months now. Regarding the anticoagulation I did discuss with the patient the fact that his INR is down because of the Vitamin k that we gave him. I gave him both the option of adjusting the Coumadin dosage or adjusting the Coumadin and the usage of Lovenox as a bridge coverage. I did inform him about the risk of stroke although it's very small. His preference is to take the Coumadin adjusted dose and have his INR rechecked. It will be rechecked on Sunday. (4) Hypothyroidism Current Visit: Yes Status: Acute Comment: Same medications (5) Hyperlipidemia Current Visit: Yes Status: Acute Comment: Same medications (6) Sinusitis Current Visit: Yes Status: Acute Comment: This is improved continue the Flonase (7) Postural hypotension Current Visit: Yes Status: Acute Comment: He did report dizziness when he came in and there is a some postural hypotension present we did cut back on the dosage of the quinapril and that seemed to help his symptoms. We'll discharge him on a lower dosage of quinapril.
[2016-06-24 08:02] VITALS: RESP 18; TEMP 97.7
--- NOTE | 2016-06-24 08:16 | DCSUMMARY ---
Hospitalization Summary Admit Date: 06/21/16 Discharge Date: 06/24/16 Hospital Course: Discharge diagnoses 1. Exudative Right-sided pleural effusion, cytology pending 2. Possible pneumonia 3. Sinusitis 4. Postural hypotension 5. Hypoxia probably secondary to the pleural effusion 6. GERD 7. Swallowing difficulty patient booked for outpatient modified barium study 8. History of atrial fibrillation 9. Hypothyroidism 10. History of coronary artery disease with previous CABG in 11. Hyperlipidemia 12. History of previous left carotid endarterectomy 13. History of renal artery stenosis status post stent 14. History of melanoma on the right forearm status post excision. 15. History of basal cell carcinoma Hospital course This is an 85 years old male with medical history significant for history of coronary artery disease with previous CABG, atrial fibrillation, hypertension, history of melanoma resection last year, hyperlipidemia who developed cough he said about 10 days before admission there was a phlegm production which is described as yellow, symptoms got worse a week ago so he went to the urgent clinic they gave him doxycycline and prednisone maybe the cough got somewhat better but he developed swelling in his legs so 3 days before admission and he started taking Lasix 2 days before admission. On the day he came in he started to feel dizzy, lightheaded so he checked his blood pressure and he reported that his blood pressure was low in the 50s systolic and because of that he came into the ER. His blood pressure was normal in the ER but the there was a drop in his blood pressure when he stood up. In the ER he had a CT which showed evidence of moderate sized pleural effusion. He was given fluids and giving a dose of antibiotics and he was admitted. Examination when I saw him was remarkable for decreased breath sound from the mid of the lung posteriorly and down. CT of the chest showed the large right pleural effusion, no evidence of PE, airspace disease within the right lung base. Cannot rule out an underlying mass. Patient INR was 3.6 so we talked to him about thoracocentesis and he agreed, but we did have to give him vitamin K and hold his Coumadin to reverse his INR to have the procedure, what it was done about 700 mL of fluid was removed, there was still fluid left though this was based on the x-ray post procedure. The preliminary findings suggest that this is an exudative effusion. Culture were negative. White count was 1800 with predominance of mononuclear cells. We did send for cytology and this was pending at the time of dictation. I did speak with Dr. Venegas the oncologist that the he sees and he knows about the patient's, the patient will follow-up with him as he was scheduled to have a PET scan for evaluation off a focal density in the right lower lobe that was found on the CT in February last year. The patient to will call for an appointment to reschedule his PET scan. He missed his appointment as he was in the hospital. His appointment with Dr. Venegas is on the . We did cover for antibiotics for possible underlying infection as the patient did have a cough and sputum production and also had the picture also suggestive of sinusitis so that would cover possibility of pneumonia and sinusitis. We Put him also on steroid nasal inhaler and that helped his symptoms. He did also report some swallowing difficulty and we ordered a modified barium swallow evaluation however the machine broke and this will be done as an outpatient. We did notice also some drop in his blood pressure with positioning so we decreased the dosage of the quinapril. We also noticed that his heart rate was fast and added digoxin I did speak with Dr. Bragg based on the patient's request. I did notice that his heart rate being fast for quite a few months. Further adjustment to his medication may be needed if his heart remained fast. We did start him back on the Coumadin at the higher dosage to try to overcome the effect of vitamin K. And on the day of discharge I did offer him to the either continue with tthe higher dosage and repeat INR or cover with Lovenox until the Coumadin started showing its effect. He chose to stay only on the Coumadin and not to get the Lovenox shot. He was hypoxic and still required oxygen and we did prescribe oxygen. I did tell him that she need to follow-up with his primary as likely he need another chest x-ray to see the progression of the fluid and response to antibiotics. The fluid may be secondary to another cause I did tell him malignancy is on the differential. On the day of discharge he was feeling better his cough improved and the dizziness resolved so we thought he could be discharged home and follow-up as an outpatient with his primary and with his oncologist and with the field artillery officer. He will have repeat INR on Sunday and follow-up with the anticoagulation clinic. Laboratory Results 06/21/16 06/22/16 06/22/16 Range/Units 13:06 06:00 06:06 WBC 7.60 (4.8-10.8) 10^3/uL RBC 4.60 L (4.70-6.10) 10^6/uL Hgb 12.9 L (14.0-18.0) g/dL Hct 39.4 L (42.0-52.0) % MCV 85.7 (80-90) FL MCH 28.0 (27-31) PG MCHC 32.7 L (33-37) g/dL RDW Std Deviation 48.4 (39-50) fL RDW Coeff of Shivam 15.6 H (11.5-14.5) % Plt Count 242 (140-350) 10*3/uL MPV 9.4 (7.4-12.2) FL Immature Gran % (Auto) 0.7 (0-5) % Neut % (Auto) 73.0 (50-80) % Lymph % (Auto) 13.8 (10-50) % [place] % (Auto) 11.3 (5-15) % Eos % (Auto) 0.9 (0-8) % Baso % (Auto) 0.3 (0-1) % Immature Gran # (Auto) 0.05 10*3/UL Neut # (Auto) 5.55 10*3/UL Lymph # (Auto) 1.05 10*3/uL [place] # (Auto) 0.86 H (0.3-0.8) 10*3/UL Eos # (Auto) 0.07 10*3/UL Baso # (Auto) 0.02 10*3/UL WBC Morphology Comment Normal morphology (NORM) Plt Morphology Comment Normal morphology (NORM) RBC Morph Comment Normal morphology (NORM) PT 38.0 H 16.9 H (9.7-11.4) secs INR 3.59 1.62 (0.00-5.90) N/A D-Dimer 0.63 H (0.00-0.59) mg/L Sodium 138 (135-145) meq/L Potassium 5.0 (3.8-5.2) meq/L Chloride 97 L (98-112) meq/L Carbon Dioxide 29 (23-33) meq/L Anion Gap 12 (5-20) BUN 21 (7-22) mg/dL Creatinine 1.1 (0.70-1.50) mg/dL Estimated GFR [employer]ating [employer] BUN/Creatinine Ratio 19.09 (6-20) Glucose 106 (78-110) mg/dL Calculated Osmolality 288.0 (267-292) mOsm/kg Lactic Acid 1.7 (0.70-2.10) MMOL/L Calcium 9.1 (8.7-10.7) mg/dL Magnesium 1.6 (1.6-2.4) mg/dL Total Bilirubin 1.0 (0.3-1.2) mg/dL AST 43 (21-57) IU/L ALT 28 (21-72) IU/L Alkaline Phosphatase 119 (38-126) IU/L Lactate Dehydrogenase 481 (313-618) IU/L Troponin I 0.010 (< 0.040) ng/mL C-Reactive Protein 0.2 (0.0-0.9) mg/dL NT-Pro-B Natriuret Pep 349.0 (0-450) PG/ML Total Protein 7.6 (6.1-8.0) g/dL Albumin 4.5 (3.5-4.8) g/dL Globulin 3.1 (2.50-4.10) g/dL Albumin/Globulin Ratio 1.40 (1.3-2.0) mg/g Fluid Type Fluid WBC 10*3/uL Fluid RBC 10*6/uL Fluid Polynuclear WBCs % Fluid Mononuclear WBCs % Fluid Glucose Fluid Total Protein Pleural pH Pleural WBC 10^3/uL Pleural Mononuclear % Pleural Polynuclear WBC % 06/22/16 06/22/16 06/24/16 Range/Units 12:00 16:59 05:49 WBC 7.53 (4.8-10.8) 10^3/uL RBC 4.58 L (4.70-6.10) 10^6/uL Hgb 12.4 L (14.0-18.0) g/dL Hct 38.6 L (42.0-52.0) % MCV 84.3 (80-90) FL MCH 27.1 (27-31) PG MCHC 32.1 L (33-37) g/dL RDW Std Deviation 46.4 (39-50) fL RDW Coeff of Shivam 15.3 H (11.5-14.5) % Plt Count 205 (140-350) 10*3/uL MPV 9.6 (7.4-12.2) FL Immature Gran % (Auto) 0.8 (0-5) % Neut % (Auto) 71.7 (50-80) % Lymph % (Auto) 14.3 (10-50) % [place] % (Auto) 11.4 (5-15) % Eos % (Auto) 1.5 (0-8) % Baso % (Auto) 0.3 (0-1) % Immature Gran # (Auto) 0.06 10*3/UL Neut # (Auto) 5.40 10*3/UL Lymph # (Auto) 1.08 10*3/uL [place] # (Auto) 0.86 H (0.3-0.8) 10*3/UL Eos # (Auto) 0.11 10*3/UL Baso # (Auto) 0.02 10*3/UL WBC Morphology Comment Normal morphology (NORM) Plt Morphology Comment Normal morphology (NORM) RBC Morph Comment Normal morphology (NORM) PT 13.7 H 12.3 H (9.7-11.4) secs INR 1.32 1.19 (0.00-5.90) N/A D-Dimer (0.00-0.59) mg/L Sodium 132 L (135-145) meq/L Potassium 4.3 (3.8-5.2) meq/L Chloride 95 L (98-112) meq/L Carbon Dioxide 28 (23-33) meq/L Anion Gap 9 (5-20) BUN 17 (7-22) mg/dL Creatinine 0.9 (0.70-1.50) mg/dL Estimated GFR BUN/Creatinine Ratio 18.88 (6-20) Glucose 126 H (78-110) mg/dL Calculated Osmolality 277.0 (267-292) mOsm/kg Lactic Acid (0.70-2.10) MMOL/L Calcium 8.9 (8.7-10.7) mg/dL Magnesium (1.6-2.4) mg/dL Total Bilirubin (0.3-1.2) mg/dL AST (21-57) IU/L ALT (21-72) IU/L Alkaline Phosphatase (38-126) IU/L Lactate Dehydrogenase (313-618) IU/L Troponin I (< 0.040) ng/mL C-Reactive Protein (0.0-0.9) mg/dL NT-Pro-B Natriuret Pep (0-450) PG/ML Total Protein (6.1-8.0) g/dL Albumin (3.5-4.8) g/dL Globulin (2.50-4.10) g/dL Albumin/Globulin Ratio (1.3-2.0) mg/g Fluid Type Pleural Fluid WBC 1.863 10*3/uL Fluid RBC 0.103 10*6/uL Fluid Polynuclear WBCs 14.4 % Fluid Mononuclear WBCs 85.6 % Fluid Glucose 115 Fluid Total Protein 4.8 Pleural pH 8 Pleural WBC 1.863 10^3/uL Pleural Mononuclear 85.6 % Pleural Polynuclear WBC 14.4 % Discharge instruction Diet regular Activity as started Medications Home Medications Medication Instructions Recorded Confirmed Type Aspirin [Aspirin EC] 81 mg ORAL QD 30 Days 05/15/12 06/21/16 Clinic Glucosa Aggarwal 2Kcl/Chondroitin Aggarwal 1 each PO QD 30 Days 05/15/12 06/21/16 Clinic [Glucosamine Chondroitin [place]] Cetirizine HCl [Zyrtec] 1 tab PO QD PRN #90 tab 09/07/14 06/21/16 Clinic Cholecalciferol (Vitamin D3) 1 cap PO QD #30 cap 04/30/15 06/21/16 Clinic [Vitamin D3] Omeprazole [Prilosec] 1 tab PO QD #90 cap 08/24/15 06/21/16 Clinic Ranolazine [Ranexa] 1 tab PO BID #180 tab 10/14/15 06/21/16 Clinic Albuterol Sulfate [Proair Hfa] 1 - 2 puff INH Q4-6H #1 inhaler 10/21/15 Clinic Nitroglycerin 1 tab SL PRN #30 tab 11/05/15 06/21/16 Clinic Levothyroxine Sodium 1 tab PO QD #90 tab 11/22/15 06/21/16 Clinic Warfarin Sodium [Coumadin] 2.5 mg PO QD #90 tab 11/29/15 06/21/16 Clinic Carvedilol [Coreg] 1 tab PO BID #180 tab 01/03/16 06/21/16 Clinic Nitroglycerin 1 cap PO Q12H #60 cap 04/10/16 06/21/16 Clinic Potassium Gluconate [Potassium] 99 mg PO BID 06/21/16 06/21/16 History Pravastatin Sodium [Pravachol] 0.5 tab PO QD #45 tab 06/21/16 06/22/16 Clinic Digoxin [Lanoxin] 125 mcg PO DAILY #30 tab 06/24/16 Rx Fluticasone Nasal [place] 0.05% 2 sprays FOX DAILY #1 bottle 06/24/16 Rx [Flonase Nasal [place] 0.05%] Levofloxacin Tab [Levaquin Tab] 750 mg PO DAILY #2 tablet 06/24/16 Rx Quinapril HCl [Accupril] 5 mg PO BEDTIME #30 tablet 06/24/16 Rx Follow-up with Dr. Maria 1-2 weeks, Dr. Venegas as scheduled, with Dr. Bragg 1- 2 weeks Condition at discharge was stable for discharge Exam - Vitals Vital Signs: Vital Signs Temperature 97.7 F Temperature Source Oral Pulse Rate [Telemetry] 110 Pulse Rate [Apical] 100 Pulse Rate [Pulse Oximeter] 115 Pulse Rate [Standing] 120 Pulse Rate [Sitting] 115 Pulse Rate [Lying] 104 Pulse Rate 117 Respiratory Rate 18 Blood Pressure [Standing] 103/63 Blood Pressure [Sitting] 124/76 Blood Pressure [Lying] 113/75 Blood Pressure [Right Arm] 98/61 Blood Pressure [Left Arm] 111/63 Blood Pressure 131/87 Pulse Ox 88 Oxygen Flow Rate 1 Oxygen Delivery Method Room Air Height 5 ft 9.5 in Weight 206 lb 12.8 oz Patient Problems - Patient Problem List (1) Pleural effusion, right Status: Acute (2) Pneumonia Status: Acute (3) Chronic atrial fibrillation Status: Acute (4) Hypothyroidism Status: Acute (5) Hyperlipidemia Status: Acute (6) Sinusitis Status: Acute (7) Postural hypotension Status: Acute
[2016-06-24] MEDS: FLUTICASONE PROPIONATE 16 GRAM (120 SPRAYS / BOTTLE) ENOS SCH (08:24)
[2016-06-24] MEDS: RANOLAZINE 500 MG PO SCH (08:25)
[2016-06-24] MEDS: DOCUSATE 100 MG CAPSULE PO SCH (08:25)
[2016-06-24] MEDS: DIGOXIN 125 MCG TABLET PO SCH (08:25)
[2016-06-24] MEDS: OMEPRAZOLE 20 MG CAPSULE PO SCH (08:25)
[2016-06-24] MEDS: CARVEDILOL 12.5 MG TABLET PO SCH (08:25)
[2016-06-24] MEDS: NITROGLYCERIN 6.5 MG PO SCH (08:25)
[2016-06-24] MEDS: ASPIRIN EC 81 MG TABLET PO SCH (08:26)
--- NOTE | 2016-06-24 10:06 | OT.PROG ---
Progress Note Progress Note: pt reported he was going home and did not need to go over the swallow exercises. they wee happy they had a hand out for the exercises to complete at home.
[2016-06-25 07:11] LABS: LDBF 164 U/L (())
--- NOTE | 2016-06-26 10:29 | OTI REPORT ---
Thank you for the referral of Joni Restrepo. He was seen on 06/23/16 for an occupational therapy swallow evaluation secondary to pneumonia. SUBJECTIVE: The patient is an 85-year-old male who is being seen for a bedside swallow evaluation. He reports that he has acid reflux at night; sometimes it comes up into his sinuses and he can start to lose his breath as well as choke on some of the acid reflux that's coming up. He got to thinking about his swallowing troubles and he states that he has had them for approximately one year. He states sometimes he will choke when he swallows. He says that he does feel like it has gotten into his windpipe instead of his esophagus. The patient state he has had two weeks of pretty extreme coughing and sometimes he does struggle to swallow. The patient reports that he doesn't necessarily choke or cough on liquids, it is usually regular type foods that are going down into the throat. PAST MEDICAL HISTORY: Past medical history can be found in the patient's medical record. OBJECTIVE FINDINGS: Pre-Swallow Activities: Alertness and responsiveness: The patient was alert and responsive. Reliable responses: The patient had reliable yes and no responses. Facial symmetry: The patient demonstrated good facial symmetry. Volitional dry swallow: The patient demonstrated a volitional dry swallow. Following directions: The patient was able to follow two step directions. Cough: The patient's cough was very raspy. Nutrition and intake method: Nutrition and intake method over the last 24-hours has been a regular diet with thin liquids. Oxygen: The patient is on one liter of oxygen today; he is not normally on oxygen. Secretions: The patient demonstrated being able to handle his own secretions. Dentures: The patient does have dentures on the top and the bottom but he states that they are wore out. He does have a clicking in his jaw and the teeth but his dentist told him this was because the dentures were wore out. Lip control: The patient demonstrated good lip control. Lingual function: The patient demonstrated good lingual function for range of motion, strength, and coordination. Sensation: His sensation on the buccal, labial, and lingual areas were within normal limits. Gag reflex: The patient had an intact gag reflex. Feeding Assessment: Today we started with thin liquids including water. The patient was able to take several sips of water from a cup as well as a straw and did not demonstrate external signs of aspiration. His laryngeal elevation was slightly impaired; he has about 50% of laryngeal elevation on the three finger swallow. We went to pureed food; he had good bolus control and good swallow transit time with one to two swallows per bolus. Laryngeal elevation was approximately 50%. The patient was negative for coughing, pocketing, and drooling. His voice post feed was the same. We then went to mechanical soft including diced fruit and regular foods including bread and turkey as well as a dry cracker. The patient demonstrated good bolus control. His swallow transit time was within normal limits with one to two swallows per bolus. He was asked to take some water with the food. His laryngeal elevation was approximately 50% He was negative for cough after the swallow. He did cough once in a while; this could be from being sick with pneumonia or from the food itself. The patient has been taking medication with thin liquid at this point. The therapist also went through chin tucks with effortful swallows when he felt like the bread was slightly getting stuck in his throat; this helped clear the throat followed by a drink of liquid. RECOMMENDATIONS: 1. Patient will complete a modified barium swallow study. 2. Patient should be sitting in an upright position at all times. 3. Patient should alternate bites of food with sips of liquid. ASSESSMENT: The patient was able to self feed and position himself during the assessment. His swallow appears to be efficient for adequate PO intake; however, because of his decreased hyoid cartilage elevation and larynx abilities as well as his history including his swallow concerns, it would be highly beneficial for the patient to complete a modified barium swallow study at this point in time. The patient did not demonstrate aspiration externally with thin liquid or with regular food items. The physician was informed of the results and recommendations as well as his nurse. SWALLOW GOALS: Patient will participate in a modified barium swallow study to assess whether he is silently aspirating or not; at this time he does have weakness in the larynx area. Patient will demonstrate safety precautions 100% of the time and use correct positioning 100% of the time. TREATMENT PLAN: The therapist did discuss the modified barium swallow study with Dr. Agee. The therapist had taken the patient down to the fluoroscopy room; however, the machine was broken. It will have to be repaired before we can continue with the modified barium swallow study. We will try to schedule this as soon as possible. INITIAL TREATMENT: Treatment today consisted of the swallow evaluation activities only. ISRA
--- NOTE | 2016-06-26 10:40 | OT PM DAY ---
Diagnosis : Pneumonia/Swallow Difficulties PM - Occupational Therapy S: The patient reports no new changes. O: The patient was instructed in swallow strengthening exercises. He reports that the chin tucks with effortful swallows have been helping if food feels like it is getting stuck in the throat. Today we went through effortful swallows, Roberto maneuver, falsettos, Maria Del Rosario maneuver, and epiglottic control. The patient was able to complete all of these with instructions from therapist and demonstration. We also discussed the possibility of going to a mechanical soft diet vs. a regular diet at this time. He doesn't have to go off of regular foods completely but we did discuss how softer foods could lessen the chance of maybe some acid reflux followed by food and alternating liquids. A worksheet of mechanical soft vs. regular foods was given to the patient and his . We also talked about eating bigger foods at lunch time vs. dinner time, staying away from acidic foods and greasy/fatty foods and how this might control some of his acid reflux a little bit more. We went over compensatory strategies including using effortful swallows if items felt stuck in the throat or chin tucks with effortful swallows. A: The patient and his were very agreeable to trying the strengthening as well as modifying their diet at home. Joni is planning on being discharged tomorrow. We will schedule the modified barium swallow study as soon as we hear from radiology when the machine if fixed. P: Continue seeing patient BID during the week and one time per day over the weekend until discharge. ISRA
== END 2016-06-24 10:59 | disposition home or self-care (01) | DRG 186 ==
LOC: ER 12:34 → MED/SURG 15:02
PROVIDERS: ADMIT Internal Medicine; ATTEND Internal Medicine
DX: J90 Pleural effusion, not elsewhere classified (principal); J18.9 Pneumonia, unspecified organism; J32.9 Chronic sinusitis, unspecified; I48.2 Chronic atrial fibrillation; I95.1 Orthostatic hypotension; R09.02 Hypoxemia; K21.9 Gastro-esophageal reflux disease without esophagitis; R13.10 Dysphagia, unspecified; I48.91 Unspecified atrial fibrillation; E03.9 Hypothyroidism, unspecified; Z95.1 Presence of aortocoronary bypass graft; E78.5 Hyperlipidemia, unspecified; Z85.820 Personal history of malignant melanoma of skin; Z86.79 Personal history of other diseases of the circulatory system; R05 Cough
CPT/HCPCS: 32554; 36415; 71010; 71275; 80048; 80053; 83605; 83615; 83735; 83880; 84157; 84484; 85025; 85379; 85610; 86140; 87040; 87070; 87205; 87804; 89050; 89051; 93005; 93010; 94761; 96360; 96361; 97001; 97110; 97530; 99285; J7030

== ENCOUNTER → 2016-06-27 | Outpatient (CLI) | payer OTHER | LOC: MMPC 09:00 | DX: Z79.01 Long term (current) use of anticoagulants (principal); Z51.81 Encounter for therapeutic drug level monitoring; I48.91 Unspecified atrial fibrillation | CPT/HCPCS: 85610 ==

== ENCOUNTER → 2016-07-03 | Outpatient (CLI) | payer OTHER | LOC: MMPC 11:11 | DX: J18.9 Pneumonia, unspecified organism (principal); E03.9 Hypothyroidism, unspecified; I10 Essential (primary) hypertension; M25.512 Pain in left shoulder | CPT/HCPCS: 99213; G0463 ==

== ENCOUNTER → 2016-07-06 | Outpatient (CLI) | payer OTHER | LOC: MMPC 09:00 | DX: Z79.01 Long term (current) use of anticoagulants (principal); Z51.81 Encounter for therapeutic drug level monitoring; I48.91 Unspecified atrial fibrillation | CPT/HCPCS: 85610 ==

== ENCOUNTER → 2016-07-10 | Outpatient (CLI) | payer OTHER | LOC: MMPC 09:00 | DX: Z79.01 Long term (current) use of anticoagulants (principal); Z51.81 Encounter for therapeutic drug level monitoring; I48.91 Unspecified atrial fibrillation | CPT/HCPCS: 85610 ==

== ENCOUNTER → 2016-07-12 | Outpatient (CLI) | payer OTHER ==
[2016-07-12 12:34] LABS: CALCIUM 9.5 mg/dL (8.7-10.7); CREATININE 1.1 mg/dL (0.70-1.50); POTASSIUM 4.6 meq/L (3.8-5.2)
== END ==
LOC: MOB LAB 11:11
DX: E11.9 Type 2 diabetes mellitus without complications (principal); I10 Essential (primary) hypertension; Z51.81 Encounter for therapeutic drug level monitoring
CPT/HCPCS: 36415; 80048; 80162

== ENCOUNTER → 2016-07-25 | Outpatient (CLI) | payer OTHER ==
--- NOTE | 2016-07-25 10:58 | DI ---
XR ESOPHAGRAM,07/25/2016 9:28 AM: Clinical History: Pneumonia. Previous Exam: None at this facility. Findings: Fluoroscopic support was provided to occupational therapy for the performance of a swallow study. The patient demonstrated normal swallowing with good clearance of both liquids and solids. Postsurgic al changes were seen within the neck. Degenerative changes of the cervical spine are also noted mild in degree. There is no evidence of aspiration on this exam. Impression: Fluoroscopic support provided to speech pathology. Please refer to the report rendered by speech path ology.
--- NOTE | 2016-07-27 16:37 | OTI REPORT ---
Thank you for the referral of Joni Restrepo. He was seen on 07/25/16 for an occupational therapy modified barium swallow study. SUBJECTIVE: The patient is an 85-year-old male who was being seen secondary to pneumonia about a month ago. The patient was choosing to go with Dr. Singh in radiology once he was on staff; so that is why we waited so long to get the swallow study done. The patient reports that he hasn't had a lot of coughing or choking in the last month. He does feel like food gets stuck at times in his throat. PAST MEDICAL HISTORY: Past medical history can be found in the patient's medical record. OBJECTIVE FINDINGS: Oral Preparatory Phase: The patient was able to place thin liquid on the tongue. He is able to maintain a good labial seal which prevents liquid from falling out of his mouth. His velum is actively pulled interiorly and rests against the back of the tongue. The bolus is held in the anterior part of his tongue and this tips the food back. Oral Phase: The tongue propelled the food and liquid posteriorly until swallow reflex was triggered. We started the patient in a lateral view, starting with thin liquid , followed by mechanical soft food. The patient was able to move the bolus against the hard pallet. He did not demonstrate any pocketing in the buccal musculature. In the pharyngeal phase, the reflexive swallow carried the bolus through the pharynx and began triggering the swallow as the bolus reached the anterior fascial arches. The actual swallow reflex was initiated. He was able to voluntarily control his swallow. Pharyngeal transit time was one per second ; however, there was mild pooling in the valleculae. The velum elevated, retracted, and contracted the posterior pharyngeal wall which prevented material from entering the nasal cavity. Pharyngeal peristalsis began to direct bolus from the anterior fascial arches to the cricopharyngeal sphincter at the top of the esophagus. His hyoid bone did elevate within normal limits. His larynx elevated. There was closure of the true and false vocal cords as well as the epiglottis during all the swallows of the lateral view with three drinks of thin liquid and two bites of mechanical soft food. The cricopharyngeal sphincter relaxed, pulled open, and allowed materials to pass through the pharynx into the esophagus. Dr. Singh did look at some of the esophageal region and . We then moved the patient to an anterior view to look at any asymmetries but the patient did very well clearing both the piriformis sinuses and the valleculae. There was minimal pooling and he was able to clear all materials from these areas with two swallows. He was tested with meat as well as thin liquid in this region. There was no pooling after two different swallows. ASSESSMENT: At this time the patient is not demonstrating aspiration. He is able to clear material. There was not any leakage past the epiglottis. He has good strength of the piriformis sinuses and the valleculae. His main concern when he reported possible aspiration a month ago was that he does have quite a bit of acid reflux. At the time the occupational therapist had recommended looking into foods that have less acid and that he eat his larger meals at noon and not at night. He states that this is helping him not have any reflux in the middle of the night. He is to continue with those recommendations. The patient's swallow appeared to be safe today for a regular food diet with thin liquids. RECOMMENDATIONS: Patient should sit upright for all meals Patient should stay upright for an hour after each meal INITIAL TREATMENT: Treatment today consisted of the modified barium swallow study only. ISRA
== END ==
LOC: RAD 09:13
PROVIDERS: ATTEND Internal Medicine
DX: R13.10 Dysphagia, unspecified (principal)
CPT/HCPCS: 74220; 97750

== ENCOUNTER 2016-08-02 11:03 | Emergency (ER) | payer OTHER ==
--- NOTE | 2016-08-02 11:26 | PDOC ---
Hip Injury/Pain HPI - General Chief Complaint: Lower Extremity Problem/Injury Stated Complaint: R Hip pain Date Seen by Provider: 08/02/16 Time Seen by Provider: 11:22 - History of Present Illness Initial Comments: Patient is a very nice 85-year-old gentleman presents to the emergency department with complaints of right hip pain. He states that he always has arthritis and some chronic pain in this hip but that in the night last night he started to have increasing pain there. He ended up taking some extra hydrocodone and Flexeril because of his pain. He states that when he is just sitting and resting it doesn't bother him but if he gets up and tries to bear weight or certain other positions that will bother him more. He is able to ambulate despite the pain. He has known substantial arthritis there as been told by his orthopedist anything have joint replaced. He denies any recent systemic infection or dental work he denies any fever or chills or tachycardia or general malaise. Denies any gouty flares or substantial other joint pain or worsening currently. Have you received a tetanus shot in the past 10 years?: Unknown - Patient Home Medications Home Medications: Home Medications Aspirin [Aspirin EC] 81 mg ORAL QD 30 Days 05/15/12 Glucosa Aggarwal 2Kcl/Chondroitin Aggarwal [Glucosamine Chondroitin Caplet] 1 each PO QD 30 Days 05/15/12 Cetirizine HCl [Zyrtec] 1 tab PO QD PRN #90 tab 09/07/14 Cholecalciferol (Vitamin D3) [Vitamin D3] 1 cap PO QD #30 cap 04/30/15 Omeprazole [Prilosec] 1 tab PO QD #90 cap 08/24/15 Ranolazine [Ranexa] 1 tab PO BID #180 tab 10/14/15 Albuterol Sulfate [Proair Hfa] 1 - 2 puff INH Q4-6H #1 inhaler 10/21/15 Nitroglycerin 1 tab SL PRN #30 tab 11/05/15 Levothyroxine Sodium 1 tab PO QD #90 tab 11/22/15 Warfarin Sodium [Coumadin] 2.5 mg PO QD #90 tab 11/29/15 Carvedilol [Coreg] 1 tab PO BID #180 tab 01/03/16 Nitroglycerin 1 cap PO Q12H #60 cap 04/10/16 Potassium Gluconate [Potassium] 99 mg PO BID 06/21/16 Pravastatin Sodium [Pravachol] 0.5 tab PO QD #45 tab 06/21/16 Fluticasone Nasal [place] 0.05% [Flonase Nasal [place] 0.05%] 2 sprays FOX DAILY # 1 bottle 06/24/16 Quinapril HCl [Accupril] 0.5 tab PO QHS #30 tab 07/03/16 Digoxin [Lanoxin] 1 tab PO QD #30 tab 07/25/16 Cyclobenzaprine HCl [Flexeril] 10 mg PO TID PRN 08/02/16 Hydrocodone/Acetaminophen [[place] 5-325 Tablet] 1 tab PO Q6H PRN 08/02/16 Furosemide [Lasix] 1 tab PO QOD #30 tab 08/08/16 Omeprazole 1 cap PO QD #90 cap 08/14/16 - Patient Allergies Allergies/Adverse Reactions: Allergies Allergy/AdvReac Type Severity Reaction Status Date / Time Penicillins Allergy Severe anaphylaxsi Verified 08/02/16 11:18 s venom-wasp Allergy Severe RASH Verified 08/02/16 11:18 Past Medical History - heen HEENT History: Cataracts, Dentures/Partials Additional HEENT History: BILAT RETINAL DETACHEMENT/UPPER AND LOWER DENTURES Cardiovascular History: Hypertension, Arrhythmia, Hyperlipidemia Additional Cardiovasular History: 5 vessel CABG/A-FIB/CAROTID ARTERY STENOSIS Respiratory History: Pneumonia Additional Respiratory History: PNEUMONIA MULTIPLE TIMES. 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 Neurological History: Denies History Additional Blood Disorders History: CURRENTLY TAKES ASA/COUMADIN DUE TO TREATMENT FOR AFIB Psychiatric History: Denies History History of Sexually Transmitted Diseases: No Cancer History: Skin Cancer Treatment / Date(s) of Treatment: REMOVAL History of MDRO: No History of Other Communicable Diseases: No Alcohol Use: Occasionally Substance Use Type: None Previous Surgical History: Yes Type / Date of Surgery: CABG 5 VESSEL 1990/LEFT ERNAL ARTERY STENTING 2007/L PETE 2005/LUMBAR DISC SURGICAL REPAIR 1977/TONSILLECTOMY/RENAL DETACHMENT 2009& 2010/MULTIPLE BASAL CELL CARCINOMAS/BILAT CATERACTS/VASECTOMY Anesthesia Reactions: No Malignant Hyperthermia: No Significant Family History: Heart disease, Cancer, Diabetes, Hypertension Additional Family History: FATHER- DIABETES Past Medical History Reviewed: Reviewed - No Changes ROS - Limitations ROS Limitations: No Limitations Constitution: REPORTS: Denies Symptoms Cardiovascular: REPORTS: Denies Cardiac Symptoms Respiratory: REPORTS: Denies Resp Symptoms Neurological: REPORTS: Denies Neuro Symptoms Hip Injury / Pain Exam - General Appearance General Appearance: POSITIVE: Alert, Cooperative, No Acute Distress - Lower Extremity Extremities: POSITIVE: Other (Pain with movement of the right leg no foreshortening. Was standing and ambulating.) - HEENT HEENT: POSITIVE: Head Inspection Nml, Eyes Inspection Nml Patient Care Time - Estimated PCT Patient Care Time (In Minutes): 30 Discharge Clinical Impression: Hip pain Qualifiers: Laterality: right Qualifier Code: (M25.551) Pain in right hip Condition: Stable Patient Instructions Given at Discharge: Hip Pain (ED) Additional Instructions: Return later this afternoon for outpatient MRI Follow-up with orthopedist of her choice as soon as possible to discuss MRI Weightbearing as tolerated on your affected hip Use your current pain relievers and muscle relaxers as needed for discomfort Follow Up With: ANKIT WALKER [Primary Care Provider] -
[2016-08-02 11:41] VITALS: RESP 20; TEMP 97.8
--- NOTE | 2016-08-02 12:42 | DI ---
XR HIP COMPLETE MIN 2VW U/L,08/02/2016 11:17 AM: Clinical History: Spontaneous right hip pain with weightbearing. Previous Exam: None at this facility. Findings: AP and frog-leg views of the right hip are obtained for 4 total views, and demonstrate advanced degen erative changes of the right hip with complete loss of joint space within the right hip, sclerosis, e burnation and osteophyte formation. There is diffuse osteopenia. Patient is status post left total hip arthroplasty which is not well camille luated on this exam. The lower lumbar spine is unremarkable. There is a large dense area overlying the pelvis likely repre senting a calcified uterine fibroid. 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
== END 2016-08-02 12:50 | disposition home or self-care (01) ==
LOC: ER 11:03
DX: M25.551 Pain in right hip (principal); Z95.1 Presence of aortocoronary bypass graft; I48.91 Unspecified atrial fibrillation; Z79.01 Long term (current) use of anticoagulants
CPT/HCPCS: 73502; 73721; 99282

== ENCOUNTER → 2016-08-02 | Outpatient (CLI) | payer OTHER ==
--- NOTE | 2016-08-02 18:44 | DI ---
MRI LOW EXTREMITY JNT W/O CN,08/02/2016 2:53 PM: Clinical History: Right hip pain. Previous Exam: None at this facility. Findings: Multiplanar MR images are obtained through the right hip without contrast, and demonstrate a complex tear of the superior lateral acetabular labrum with full-thickness osteochondral defects involving th e weightbearing surface of the lateral margin of the superior acetabulum. There is loss of joint space with osteophyte formation. There is some increased signal involving the major attachments on the greater trochanter with a small amount of fluid within the trochanteric burs a. There are no fractures seen. Visualized portions of the urinary bladder are unremarkable. The major vascular flow voids are unrema rkable. Signal within the other surrounding musculature is unremarkable. Impression: 1. Complex tear of the superior acetabular labrum with a para labral cyst and with some early cartila ge delamination along the weightbearing surface with subchondral cyst formation. 2. Increased signal involving the internal rotators on the insertion of the greater trochanter with a small amount of fluid within the trochanteric bursa. Correlate with prior injury.
== END ==
LOC: MRI 14:48
PROVIDERS: ATTEND Family Medicine
DX: M25.551 Pain in right hip (principal); S73.191A Other sprain of right hip, initial encounter
CPT/HCPCS: 73721

== ENCOUNTER → 2016-08-08 | Outpatient (CLI) | payer OTHER | LOC: MMPC 09:00 | DX: J18.1 Lobar pneumonia, unspecified organism (principal); I25.10 Atherosclerotic heart disease of native coronary artery without angina pectoris; E11.9 Type 2 diabetes mellitus without complications; E03.9 Hypothyroidism, unspecified; E78.5 Hyperlipidemia, unspecified; I67.9 Cerebrovascular disease, unspecified; K21.9 Gastro-esophageal reflux disease without esophagitis; I48.91 Unspecified atrial fibrillation; I10 Essential (primary) hypertension; E55.9 Vitamin D deficiency, unspecified | CPT/HCPCS: 99213; G0463 ==

== ENCOUNTER → 2016-09-06 | Outpatient (CLI) | payer OTHER ==
[2016-09-06 17:30] LABS: HEMOGLOBIN A1C 7.35 % (4.2-6.0)
== END ==
LOC: MOB LAB 15:14
DX: E11.9 Type 2 diabetes mellitus without complications (principal)
CPT/HCPCS: 83036

== ENCOUNTER → 2016-10-16 | Outpatient (CLI) | payer OTHER ==
[2016-10-16 13:08] LABS: CALCIUM 9.1 mg/dL (8.7-10.7)
== END ==
LOC: MOB LAB 11:16
DX: E11.9 Type 2 diabetes mellitus without complications (principal)
CPT/HCPCS: 36415; 80048

== ENCOUNTER → 2016-10-17 | Outpatient (CLI) | payer OTHER ==
--- NOTE | 2016-10-17 11:31 | DI ---
CT CHEST W/O CONTRAST,10/17/2016 8:30 AM: Clinical History: Malignant melanoma. Previous Exam: June 21, 2016 Findings: Multiple helically acquired CT images are obtained through the chest without contrast, and demonstrat e diffuse peripheral vascular calcifications. The thyroid is unremarkable. There is a right pleural effusion, which is slightly smaller than on the prior exam. A few coronary artery calcifications are seen. A few peripheral vascular calcifications are also noted. The patient is status post sternotomy. The airspace disease within the right lung base adjacent to the pleural effusion is unchanged from th e prior exam. A large amount of dried stool is seen within the upper abdomen. Diffuse degenerative changes of the thoracic spine are noted as well. Degenerative changes are seen i nvolving the glenohumeral joints. There are no pulmonary masses. Impression: 1. Improving right pleural effusion. Otherwise unchanged from the prior exam. 2. 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 Recommend followup in one year to document st ability.
== END ==
LOC: CT 08:17
PROVIDERS: ATTEND Internal Medicine
DX: C43.4 Malignant melanoma of scalp and neck (principal)
CPT/HCPCS: 71250

== ENCOUNTER → 2016-10-27 | Outpatient (CLI) | payer OTHER | LOC: MOB LAB 08:59 | DX: R30.0 Dysuria (principal); R82.99 Other abnormal findings in urine | CPT/HCPCS: 87077; 87088; 87186 ==

== ENCOUNTER → 2016-11-17 | Outpatient (CLI) | payer OTHER | LOC: MMPC 09:00 | DX: Z79.01 Long term (current) use of anticoagulants (principal); Z51.81 Encounter for therapeutic drug level monitoring; I48.91 Unspecified atrial fibrillation | CPT/HCPCS: 85610 ==

== ENCOUNTER 2016-11-19 22:06 | Emergency (ER) | payer OTHER ==
[2016-11-19 23:11] VITALS: RESP 20; TEMP 97.9
--- NOTE | 2016-11-19 23:49 | EKG ---
[address] [place] [address] [place] [address] Measurements Intervals [place] Rate: 98 P: [place]: 0 QRS: 74 QRSD: 97 T: 124 QT: 374 QTc: 429 Interpretive Statements ATRIAL Fibrillation with borderline RVR NONSPECIFIC ST & T-WAVE ABNORMALITY ABNORMAL RHYTHM ECG Compared to ECG 06/22/2016 19:09:21 T-wave abnormality still present Electronically Signed On 11-20-16 10:13:41 MDT by Guy Wood MD [email or web address]
--- NOTE | 2016-11-20 01:00 | PDOC ---
Fall HPI - General Chief Complaint: Fall Stated Complaint: FALL WITH BACK AND RIB PAIN Date Seen by Provider: 11/19/16 Time Seen by Provider: 22:11 Source: POSITIVE: Patient, Other (Patient's manager delivery) Exam Limitations: POSITIVE: No limitations Nurse's Notes Reviewed & Considered: Yes - History of Present Illness Initial Comments: The patient is an 85-year-old male. Patient states he was coughing while in the bathtub and lost his balance and fell, striking the posterior aspect of his lower thorax bilaterally. He also sustained a skin tear to the posterior aspect of his right elbow. Patient has a history of chronic atrial fibrillation and states he is scheduled for a heart catheterization tomorrow in [place] at 9 AM. He was on Coumadin for his atrial fibrillation, but has been taken off this medication for several days in anticipation of his catheterization. Patient also has a known right pleural effusion and is scheduled for thoracentesis in [place] this coming Sunday. Patient denies any head or chest pain. No loss of consciousness. Have you received a tetanus shot in the past 10 years?: Unknown Body Location Affected: REPORTS: Upper Extremity (R) (Right elbow), Back Timing: REPORTS: Abrupt Duration: 1 hour Severity: Moderate Context of Fall: REPORTS: Lost Balance (As above) Location of Fall: REPORTS: Home Fell From Height (in feet): 0 Quality: REPORTS: "Pain" (Lower posterior thorax bilaterally) Associated Symptoms: REPORTS: Recalls Injury, Recalls Coming to ER. DENIES: Dazed, Seizure, Trouble Breathing, Memory Impairment, Blow to Head, Lost Consciousness, Other Location of Injuries / Pain: REPORTS: Lower Back (Lower posterior thorax), Elbow (Right) Any Prior Injuries Related to Current Complaint?: No - Patient Home Medications Home Medications: Home Medications Aspirin [Aspirin EC] 81 mg ORAL QD 30 Days 05/15/12 Glucosa Aggarwal 2Kcl/Chondroitin [place] [Glucosamine Chondroitin Caplet] 1 each PO QD 30 Days 05/15/12 Cetirizine HCl [Zyrtec] 1 tab PO QD PRN #90 tab 09/07/14 Cholecalciferol (Vitamin D3) [Vitamin D3] 1 cap PO QD #30 cap 04/30/15 Omeprazole [Prilosec] 1 tab PO QD #90 cap 08/24/15 Albuterol Sulfate [Proair Hfa] 1 - 2 puff INH Q4-6H #1 inhaler 10/21/15 Nitroglycerin 1 tab SL PRN #30 tab 11/05/15 Warfarin Sodium [Coumadin] 2.5 mg PO QD #90 tab 11/29/15 Potassium Gluconate [Potassium] 99 mg PO BID 06/21/16 Pravastatin Sodium [Pravachol] 0.5 tab PO QD #45 tab 06/21/16 Fluticasone Nasal [place] 0.05% [Flonase Nasal [place] 0.05%] 2 sprays FOX DAILY # 1 bottle 06/24/16 Digoxin [Lanoxin] 1 tab PO QD #30 tab 07/25/16 Cyclobenzaprine HCl [Flexeril] 10 mg PO TID PRN 08/02/16 Hydrocodone/Acetaminophen [[place] 5-325 Tablet] 1 tab PO Q6H PRN 08/02/16 Furosemide [Lasix] 1 tab PO QOD #30 tab 08/08/16 Omeprazole 1 cap PO QD #90 cap 08/14/16 Levothyroxine Sodium 1 tab PO QD #90 tab 08/28/16 Quinapril HCl 10 mg PO DAILY tab 09/06/16 Carvedilol [Coreg] 1 tab PO BID #180 tab 10/09/16 Nitroglycerin 1 cap PO Q12H #60 cap 10/11/16 Ranolazine [Ranexa] 1 tab PO BID #180 tab 11/02/16 - Patient Allergies Allergies/Adverse Reactions: Allergies Allergy/AdvReac Type Severity Reaction Status Date / Time Penicillins Allergy Severe anaphylaxsi Verified 11/19/16 23:06 s venom-wasp Allergy Severe RASH Verified 11/19/16 23:06 Past Medical History - heen HEENT History: Cataracts, Dentures/Partials Additional HEENT History: BILAT RETINAL DETACHEMENT/UPPER AND LOWER DENTURES Cardiovascular History: Hypertension, Arrhythmia, Hyperlipidemia Additional Cardiovasular History: 5 vessel CABG/A-FIB/CAROTID ARTERY STENOSIS Respiratory History: Pneumonia Additional Respiratory History: PNEUMONIA MULTIPLE TIMES. 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 Psychiatric History: Denies History History of Sexually Transmitted Diseases: No Male Reproductive History: Denies History Cancer History: Skin Cancer Treatment / Date(s) of Treatment: REMOVAL In Past Year Been Physically Harmed or Verbally Threatened: No History of MDRO: No History of Other Communicable Diseases: No Tobacco Use: Never Smoker Alcohol Use: Occasionally Substance Use Type: None Previous Surgical History: Yes Type / Date of Surgery: CABG 5 VESSEL 1990/LEFT ERNAL ARTERY STENTING 2007/L PETE 2005/LUMBAR DISC SURGICAL REPAIR 1977/TONSILLECTOMY/RENAL DETACHMENT 2009& 2010/MULTIPLE BASAL CELL CARCINOMAS/BILAT CATERACTS/VASECTOMY Anesthesia Reactions: No Malignant Hyperthermia: No Significant Family History: Heart disease, Cancer, Diabetes, Hypertension Additional Family History: FATHER- DIABETES Past Medical History Reviewed: Reviewed - No Changes ROS - Limitations ROS Limitations: No Limitations Constitution: REPORTS: Denies Symptoms Cardiovascular: REPORTS: Denies Cardiac Symptoms Respiratory: REPORTS: Denies Resp Symptoms Neurological: REPORTS: Denies Neuro Symptoms Gastrointestinal: REPORTS: Denies GI Symptoms Endocrine: REPORTS: Denies Symptoms Musculoskeletal: REPORTS: Back Pain (Right and left lower posterior thorax as above; no pain over the spine.) Genitourinary: REPORTS: Denies Symptoms Eyes: REPORTS: Denies Symptoms ENT: REPORTS: Denies Symptoms Skin: REPORTS: Other (Skin tear posterior aspect of right elbow) Lympathic: REPORTS: Denies Lympathic Symptoms Immunologic: POSITIVE: Denies Symptoms Psychiatric: POSITIVE: Denies Psych Symptoms Fall Physical Exam - General Appearance General Appearance: POSITIVE: Alert, Cooperative, No Acute Distress. NEGATIVE: No Evidence of Trauma - HEENT HEENT: POSITIVE: Head Inspection Nml, Eyes Inspection Nml, Ears Inspection Nml, Nose Inspection Nml, Oral/Dental Inspect. Nml, Pharynx Inspect. Nml, PERRL, EOMI - Pupil Size Pupil Size: 3 mm: Bilateral (PERRLA) - Neck Neck: POSITIVE: Non Tender, Painless ROM, Trachea Midline, Nexus Criteria Negative - Respiratory / CVS Respiratory / CVS: POSITIVE: No Respiratory Distress, Heart Sounds Normal, Rib Tenderness (Posterior lower thorax), Decreased Breath Sounds (Right lung base; known history of right pleural effusion), Tenderness, Irregularly Irreg Rate ( Known history of atrial fibrillation), See Diagram. NEGATIVE: Breath Sounds Normal (Decreased breath sounds right lower lung field), Regular Rate/Rhythm ( Irregularly iregular rhythm; known history of atrial fibrillation), Rib Palpable FX, Crepitus, SubQ Emphysema, Splinting, Paradoxical Movements, Ecchymosis, Swelling, Abrasion(s), Wheezes, Rales, Rhonchi, Tachycardia, Bradycardia Peripheral Pulses: Radial (R): 2+, Radial (L): 2+ - Abdomen Abdomen: Soft: (All Quadrants), Normal Bowel Sounds: (All Quadrants), Denies Tenderness: (All Quadrants), No Splenomegaly: (All Quadrants), No Hepatomegaly: (All Quadrants), No Guarding: (All Quadrants), No Rebound: (All Quadrants), No Palpable Pulse: (All Quadrants), No Palpabale Mass: (All Quadrants), No Distention: (All Quadrants), No Rigidity: (All Quadrants) - Neuro / Psych Neuro / Psych: POSITIVE: Oriented X3, grand scribe Normal As Tested, Motor Normal, Sensation Normal, Mood Appropriate, Affect Appropriate - Skin Skin: NEGATIVE: Intact (Skin tear posterior right elbow) - Back Back: POSITIVE: No CVA Tenderness, Painless ROM, No Vertebral Tenderness, See Diagram. NEGATIVE: Non Tender (Some discomfort posterior lower thorax bilaterally), Vertebral Pt. Tenderness, CVA Tenderness (R), CVA Tenderness (L), Muscle Spasm, Limited ROM - Extremities Extremity Assessment: Non-Tender: (ALL), Normal ROM: (ALL), No Edema: (ALL), Normal Inspection: (ALL), No Swelling: (ALL) Additional Extremities Details: Normal except for superficial skin tear posterior aspect right elbow Joint Exam: POSITIVE: Joints Normal, Normal ROM, Normal Gait, Normal Weight Bearing Images - Upper Extremities Upper Extremities: 1 - Skin tear 2 - Mild discomfort on firm palpation; no bony or subcutaneous crepitus. No subcutaneous emphysema. No bruising or flail Fall Progress - Results Reviewed by me Xrays/CTs/US Reviewed by me: Yes Discussed with Radiologist: No Radiology Findings: Chest x-ray with bilateral rib views shows no definite fractures. No pneumothorax. There is a pleural effusion on the right, which is known to be present prior to his present incident. Status post CABG. EKG Interpreted/Reviewed By Me:: Yes (atrial fibrillation with controlled ventricular response; mild ST changes V) EKG Interpretation:: POSITIVE: Normal Intervals, Normal QRS, Abnormal EKG ( Atrial fibrillation with ventricular response of around 98/m. [address] depression in V5 and V6). NEGATIVE: Normal ST/T - Patient's Progress Pain Medication Addressed: POSITIVE: Yes (Recommended Tylenol) School/Work Release Addressed: POSITIVE: Not Applicable Re-Examine Time:: 00:05 Re-Examine Comment: Skin tear cleansed with normal saline and margins approximated with Steri-Strips and then sterile dressing applied. Status: POSITIVE: Improved, Re-Examined - Consult Counseled: POSITIVE: Patient, RE: Radiology Results, RE: DX, RE: Need for F/U Patient Care Time - Estimated PCT Patient Care Time (In Minutes): 45 Vital Signs - Recent Vital Signs Vital Signs: Vital Signs (Last 8 hours) Temp Pulse Resp BP Pulse Ox 11/19/16 22:06 97.9 F 121 H 20 125/80 92 - VS Reviewed Vital Signs Reviewed: Yes Discharge Clinical Impression: Soft tissue injury, Skin tear of elbow without complication Discharge Disposition: Discharged to Home Condition: Stable Patient Instructions Given at Discharge: Contusion in Adults (ED), Skin Tear ( ED) Additional Instructions: X-rays of your chest and ribs show no fractures or pneumothorax. Again demonstrated use your known right pleural effusion. Tylenol for discomfort. Keep your skin tear, right elbow Steri-Stripped for as long as possible. Keep dressing on skin tear. Follow-up with your services engineer at 9 AM tomorrow morning as is already arranged. Return here anytime if condition worsens in any way. Follow Up With: ANKIT WALKER [Primary Care Provider] - (Instructions as above. Follow-up with your services engineer tomorrow morning as is arrange. Return here anytime if condition worsens in any way.)
--- NOTE | 2016-11-20 10:03 | DI ---
XR RIBS W/PA CXR MIN 3VW,11/19/2016 10:55 PM: Clinical History: Right pleural effusion and rib pain. Previous Exam: June 22, 2016 Findings: A routine rib series is performed, and demonstrates a large right pleural effusion unchanged from the prior exam. There is also a left pleural effusion. There is no evidence of rib fracture. Postsurgical changes are seen consistent with a prior CABG. Degenerative changes of the shoulders are noted. Patient is status post sternotomy. Degenerative changes of the thoracic spine are seen as well. Impression: 1. Large right pleural effusion and small left pleural effusion. 2. No rib fractures identified.
== END 2016-11-20 00:26 | disposition home or self-care (01) ==
LOC: ER 22:06
DX: S51.011A Laceration without foreign body of right elbow, initial encounter (principal); J90 Pleural effusion, not elsewhere classified; R07.81 Pleurodynia; I48.91 Unspecified atrial fibrillation; M54.5 Low back pain; R05 Cough; Z95.1 Presence of aortocoronary bypass graft; Z79.01 Long term (current) use of anticoagulants; W18.2XXA Fall in (into) shower or empty bathtub, initial encounter
CPT/HCPCS: 71101; 93005; 93010; 99284

== ENCOUNTER → 2016-12-04 | Outpatient (CLI) | payer OTHER ==
[2016-12-04 09:40] LABS: HEMATOCRIT 32.6 % (42.0-52.0); HEMOGLOBIN 9.5 g/dL (14.0-18.0); MEAN CORPUSCULAR HEMOGLOBIN 21.5 PG (27-31); MEAN CORPUSCULAR HGB CONC 29.1 g/dL (33-37); MEAN CORPUSCULAR VOLUME 73.9 FL (80-90); MEAN PLATELET VOLUME 8.3 FL (7.4-12.2); RED BLOOD COUNT 4.41 10^6/uL (4.70-6.10)
[2016-12-04 10:18] LABS: BUN/CREATININE RATIO 21.11 (6-20)
== END ==
LOC: LAB 09:23
PROVIDERS: ATTEND Nurse Practitioner Family
DX: I50.23 Acute on chronic systolic (congestive) heart failure (principal); I25.10 Atherosclerotic heart disease of native coronary artery without angina pectoris
CPT/HCPCS: 36415; 80048; 80162; 85027

== ENCOUNTER → 2016-12-08 | Outpatient (CLI) | payer OTHER ==
[2016-12-08 07:52] LABS: BASOPHILS # (AUTO) 0.04 10*3/UL; BASOPHILS % (AUTO) 0.8 % (0-1); EOSINOPHILS # (AUTO) 0.08 10*3/UL; EOSINOPHILS % (AUTO) 1.6 % (0-8); HEMATOCRIT 33.1 % (42.0-52.0); HEMOGLOBIN 9.8 g/dL (14.0-18.0); LYMPHOCYTES # (AUTO) 0.87 10*3/uL; MEAN CORPUSCULAR HEMOGLOBIN 21.7 PG (27-31); MEAN CORPUSCULAR HGB CONC 29.6 g/dL (33-37); MEAN CORPUSCULAR VOLUME 73.4 FL (80-90); MEAN PLATELET VOLUME 8.1 FL (7.4-12.2); MONOCYTES # (AUTO) 0.62 10*3/UL (0.3-0.8); MONOCYTES % (AUTO) 12.4 % (5-15); NEUTROPHILS # (AUTO) 3.39 10*3/UL; NEUTROPHILS % (AUTO) 67.6 % (50-80); RED BLOOD COUNT 4.51 10^6/uL (4.70-6.10)
[2016-12-08 08:22] LABS: PLATELET MORPHOLOGY COMMENT NORMAL MORPHOLOGY (NORM); RBC MORPHOLOGY COMMENT SEE COMMENTS (NORM); WBC MORPHOLOGY COMMENT NORMAL MORPHOLOGY (NORM)
[2016-12-08 08:33] LABS: BUN/CREATININE RATIO 22.5 (6-20); CALCIUM 8.9 mg/dL (8.7-10.7)
== END ==
LOC: LAB 07:41
PROVIDERS: ATTEND Nurse Practitioner Family
DX: I25.110 Atherosclerotic heart disease of native coronary artery with unstable angina pectoris (principal)
CPT/HCPCS: 36415; 80048; 85025

== ENCOUNTER 2017-01-07 15:00 | Inpatient (IN) | payer OTHER ==
[2017-01-07] MEDS ORDERED: NORMAL SALINE 10 ML SYRINGE FLUSH IVP PRN ×2 (15:14→17:55)
[2017-01-07 15:50] LABS: BUN/CREATININE RATIO 13.33 (6-20); C-REACTIVE PROTEIN 6.7 mg/dL (0.0-0.9); CALCIUM 8.6 mg/dL (8.7-10.7); MAGNESIUM 1.2 mg/dL (1.6-2.4); SERUM ALBUMIN 3.5 g/dL (3.5-4.8)
[2017-01-07] MEDS: ONDANSETRON 4 MG/2 ML VIAL IVP ONE ×2 (16:01→18:05)
[2017-01-07 16:02] LABS: RED BLOOD COUNT 4.35 10^6/uL (4.70-6.10)
[2017-01-07 16:03] LABS: HEMATOCRIT 32.2 % (42.0-52.0); HEMOGLOBIN 10.2 g/dL (14.0-18.0); MEAN CORPUSCULAR HEMOGLOBIN 23.4 PG (27-31); MEAN CORPUSCULAR HGB CONC 31.7 g/dL (33-37); MEAN PLATELET VOLUME 8.9 FL (7.4-12.2)
[2017-01-07] MEDS: Sodium Chloride 0.9% 1,000 ML PRIMARY IV ONE ×2 (16:03→18:05)
[2017-01-07 16:04] LABS: BAND NEUTROPHILS % 10 % (0-10); BASOPHILS % (MANUAL) 0 % (0-1); EOSINOPHILS % (MANUAL) 1 % (0-8); LYMPHOCYTES % (MANUAL) 28 % (10-50); MONOCYTES % (MANUAL) 8 % (0-12); NEUTROPHILS % (MANUAL) 53 % (50-80); PLATELET MORPHOLOGY COMMENT NORMAL MORPHOLOGY (NORM); WBC MORPHOLOGY COMMENT NORMAL MORPHOLOGY (NORM)
[2017-01-07 16:05] LABS: RBC MORPHOLOGY COMMENT SEE COMMENTS (NORM)
[2017-01-07] MEDS: Meropenem Inj 1 GM in Sodium Chloride 0.9% 100 ML IV ONE ×2 (16:30→18:06)
[2017-01-07] MEDS: ACETAMINOPHEN 325 MG TABLET PO ONE ×2 (16:34→18:05)
--- NOTE | 2017-01-07 16:58 | PDOC ---
General Adult HPI - General Chief Complaint: General Medical Stated Complaint: fever/chills after port Date Seen by Provider: 01/07/17 Time Seen by Provider: 15:05 Source: POSITIVE: Patient Exam Limitations: POSITIVE: No limitations Nurse's Notes Reviewed & Considered: Yes - History of Present Illness Initial Comment: The patient is an 86-year-old male who presents to the emergency department with fever, chills, general malaise, vomiting and diarrhea. He was diagnosed with colon cancer in November of this year. He has been seeing the oncologist in [place]. He received his first dose of chemotherapy approximately a week ago. He had a port placed in his right upper chest on of last week. He states that multiple family members have been ill with stomach flu type symptoms including vomiting, diarrhea and chills. He states that he started feeling ill yesterday. He has had 3 or 4 episodes of diarrhea. Today he has not been able to keep anything down. He does have some intermittent abdominal cramping. Today he also started having fever and chills as well as generalized body aches and malaise. He denies any chest pain, cough, urinary symptoms or any other associated complaints. He does have a history of previous UTI. Have you received a tetanus shot in the past 10 years?: Unknown - Patient Home Medications Home Medications: Home Medications Aspirin [Aspirin EC] 81 mg ORAL QD 30 Days 05/15/12 Glucosa Aggarwal 2Kcl/Chondroitin Aggarwal [Glucosamine Chondroitin Caplet] 1 each PO QD 30 Days 05/15/12 Cetirizine HCl [Zyrtec] 1 tab PO QD PRN #90 tab 09/07/14 Cholecalciferol (Vitamin D3) [Vitamin D3] 1 cap PO QD #30 cap 04/30/15 Albuterol Sulfate [Proair Hfa] 1 - 2 puff INH Q4-6H #1 inhaler 10/21/15 Nitroglycerin 1 tab SL PRN #30 tab 11/05/15 Warfarin Sodium [Coumadin] 2.5 mg PO QD #90 tab 11/29/15 Potassium Gluconate [Potassium] 99 mg PO BID 06/21/16 Digoxin [Lanoxin] 1 tab PO QD #30 tab 07/25/16 Hydrocodone/Acetaminophen [[place] 5-325 Tablet] 1 tab PO Q6H PRN 08/02/16 Furosemide [Lasix] 1 tab PO QOD #30 tab 08/08/16 Omeprazole 1 cap PO QD #90 cap 08/14/16 Nitroglycerin 1 cap PO Q12H #60 cap 10/11/16 Ranolazine [Ranexa] 1 tab PO BID #180 tab 11/02/16 Levothyroxine Sodium 1 tab PO QD #14 tab 12/18/16 Fluticasone Nasal [place] 0.05% [Flonase Nasal [place] 0.05%] 2 sprays FOX DAILY PRN 01/07/17 LORazepam Tab [Ativan Tab] 1 mg PO Q4H PRN PRN 01/07/17 Lisinopril 2.5 mg PO DAILY 01/07/17 Metoprolol Succinate 25 mg PO DAILY 01/07/17 Ondansetron HCl 8 mg PO Q8H PRN PRN 01/07/17 Prochlorperazine Maleate 10 mg PO Q6H PRN PRN 01/07/17 - Patient Allergies Allergies/Adverse Reactions: Allergies Allergy/AdvReac Type Severity Reaction Status Date / Time Penicillins Allergy Severe anaphylaxsi Verified 01/07/17 15:08 s venom-wasp Allergy Severe RASH Verified 01/07/17 15:08 Past Medical History - heen HEENT History: Cataracts, Dentures/Partials Additional HEENT History: BILAT RETINAL DETACHEMENT/UPPER AND LOWER DENTURES Cardiovascular History: Hypertension, Arrhythmia, Hyperlipidemia Additional Cardiovasular History: 5 vessel CABG/A-FIB/CAROTID ARTERY STENOSIS Respiratory History: Pneumonia Additional Respiratory History: PNEUMONIA MULTIPLE TIMES. 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 Psychiatric History: Denies History History of Sexually Transmitted Diseases: No Cancer History: Colon, Skin Cancer Treatment / Date(s) of Treatment: REMOVAL In Past Year Been Physically Harmed or Verbally Threatened: No History of MDRO: No History of Other Communicable Diseases: No Tobacco Use: Current Every Day Smoker Alcohol Use: Rarely Substance Use Type: None Previous Surgical History: Yes Type / Date of Surgery: CABG 5 VESSEL 1990/LEFT ERNAL ARTERY STENTING 2007/L PETE 2005/LUMBAR DISC SURGICAL REPAIR 1977/TONSILLECTOMY/RENAL DETACHMENT 2009& 2010/MULTIPLE BASAL CELL CARCINOMAS/BILAT CATERACTS/VASECTOMY Anesthesia Reactions: No Malignant Hyperthermia: No Significant Family History: Heart disease, Cancer, Diabetes, Hypertension Additional Family History: FATHER- DIABETES Past Medical History Reviewed: Reviewed - No Changes ROS - Limitations ROS Limitations: No Limitations Constitution: REPORTS: Chills, Fever (Temp was 101 at home) Cardiovascular: DENIES: Chest Pain Respiratory: DENIES: Cough Non Productive, Cough Productive, Shortness Of Breath Neurological: DENIES: Headache, Numbness, Weakness Gastrointestinal: REPORTS: Abdominal Pain (Intermittent abdominal cramping), Nausea, Vomitting, Diarrhea. DENIES: Black Stools, Bloody Stools Endocrine: REPORTS: Fatigue Musculoskeletal: REPORTS: Muscle Aches Genitourinary: REPORTS: Denies Symptoms Eyes: REPORTS: Denies Symptoms ENT: REPORTS: Denies Symptoms Skin: DENIES: Rash General Adult Exam - General Appearance General Appearance: POSITIVE: Alert, Cooperative, No Acute Distress - HEENT HEENT: POSITIVE: Head Inspection Nml, Eyes Inspection Nml, Ears Inspection Nml, Pharynx Inspect. Nml, Dry Mucous Membranes - Neck Neck: POSITIVE: Normal Inspection. NEGATIVE: Lymphadenopathy - Respiratory Respiratory: POSITIVE: No Respiratory Distress, Breath Sounds Normal, Other (He does have a recent port placement in the right upper chest, there is some mild bruising around the port insertion site) - Cardiovascular Cardiovascular: POSITIVE: Regular Rate & Rhythm, No Murmur Peripheral Pulses: Dorsalis-pedis (R): 2+, Dorsalis-pedis (L): 2+ - Abdomen Abdomen: Normal Bowel Sounds: (All Quadrants), Denies Tenderness: (All Quadrants ), No Distention: (All Quadrants) - Skin Skin: POSITIVE: Normal Color, No Rash - Extremities Extremity: Normal ROM: (All Extremities), Normal Inspection: (All Extremities) - Neurological / Psychological Neurological: POSITIVE: Oriented X3, Motor Normal, Sensation Normal General Adult Progress - Results Reviewed by me Xrays/CTs/US Reviewed by me: Yes Radiology Findings: Chest x-ray shows increased density in the right lower lung field which has been present on previous chest x-ray from earlier this year Lab Results Reviewed: Yes Lab Results:: Laboratory Results 01/07/17 Range/Units 15:33 WBC 1.44 L (4.8-10.8) 10^3/uL RBC 4.35 L (4.70-6.10) 10^6/uL Hgb 10.2 L (14.0-18.0) g/dL Hct 32.2 L (42.0-52.0) % MCV 74.0 L (80-90) FL MCH 23.4 L (27-31) PG MCHC 31.7 L (33-37) g/dL RDW Std Deviation 72.0 H (39-50) fL RDW Coeff of Shivam 27.5 H (11.5-14.5) % Plt Count 181 (140-350) 10*3/uL MPV 8.9 (7.4-12.2) FL Neutrophils % (Manual) 53 (50-80) % Band Neutrophils % 10 (0-10) % Lymphocytes % (Manual) 28 (10-50) % Monocytes % (Manual) 8 (0-12) % Eosinophils % (Manual) 1 (0-8) % Basophils % (Manual) 0 (0-1) % Metamyelocytes % Not Reportable Myelocytes % Not Reportable Promyelocytes % Not Reportable Blast Cells Not Reportable WBC Morphology Comment Normal morphology (NORM) Plt Morphology Comment Normal morphology (NORM) RBC Morph Comment See comments (NORM) Sodium 133 L (135-145) meq/L Potassium 3.9 (3.8-5.2) meq/L Chloride 96 L (98-112) meq/L Carbon Dioxide 28 (23-33) meq/L Anion Gap 9 (5-20) BUN 12 (7-22) mg/dL Creatinine 0.9 (0.70-1.50) mg/dL Estimated GFR (>60 ml/min/1.73m(2)) BUN/Creatinine Ratio 13.33 (6-20) Glucose 172 H (78-110) mg/dL Calculated Osmolality 279.0 (267-292) mOsm/kg Lactic Acid 2.7 H (0.70-2.10) MMOL/L Calcium 8.6 L (8.7-10.7) mg/dL Magnesium 1.2 L (1.6-2.4) mg/dL Total Bilirubin 0.8 (0.3-1.2) mg/dL AST 15 L (21-57) IU/L ALT 27 (21-72) IU/L Alkaline Phosphatase 113 (38-126) IU/L C-Reactive Protein 6.7 H (0.0-0.9) mg/dL Total Protein 6.5 (6.1-8.0) g/dL Albumin 3.5 (3.5-4.8) g/dL Globulin 3.1 (2.50-4.10) g/dL Albumin/Globulin Ratio 1.10 L (1.3-2.0) mg/g - Patient's Progress MDM / ED Course: The patient's temp on arrival was 99.8. He was not hypotensive. IV was established and he did receive 1 L bolus of normal saline as well as Zofran 4 mg IV and Tylenol 650 mg by mouth. Blood cultures and lactate were drawn with initial IV start. The patient's chest x-ray shows increased density in the right lower lung field unchanged from previous earlier this year. His white count is 1.4 and 10% bands. His lactate is mildly elevated at 2.7. The patient is at risk for bacteremia and sepsis. The patient is discussed with Dr. Agee and decision was made to admit and start on IV antibiotics. He recommended meropenem and vancomycin which were started here in the emergency department. These findings and recommendations were discussed with the patient and his family and they are in agreement with current plan. - Consult Counseled: POSITIVE: Patient, Family, RE: Lab Results, RE: DX Patient Care Time - Estimated PCT Patient Care Time (In Minutes): 35 Vital Signs - Recent Vital Signs Vital Signs: Vital Signs (Last 8 hours) Temp Pulse Resp BP Pulse Ox 01/07/17 16:34 99.8 F H 01/07/17 15:01 99.8 F H 130 H 32 H 155/73 91 Discharge Clinical Impression: Fever, Dehydration, Malignant neoplasm of colon Discharge Disposition: Admit to Inpatient Condition: Stable Date Decision to Admit to Inpatient: 01/07/17 Time Decision to Admit to Inpatient: 16:30
--- NOTE | 2017-01-07 17:07 | PDOC ---
History and Physical - History of Present Illness Date and Time of Service: 01/09/2017 6 PM Chief Complaint: Diarrhea, vomiting, malaise not started yesterday, also fever of 101 at home. History of Present Illness: This is a 86 years old male with medical history significant for history of coronary artery disease with previous CABG, atrial fibrillation, hypertension, history of melanoma that was resected a year ago, hyperlipidemia, hypothyroidism , recent diagnosis of colon cancer in November of this year who had chemotherapy for the first time Sunday a week from now he also had a port placed on the right chest last week, who presented to the hospital with history of fever, chills, malaise with vomiting and diarrhea. He had the 3 or 4 episodes of diarrhea yesterday and 3 maybe today. He vomited twice today. Yesterday he had cramps in his abdomen. He also complaining from cramps today. He denied chest pain, shortness of breath, there is no dysuria, no cough no sore throat. Because of the symptoms he came into the ER evaluation revealed low white blood count of 1.4 and 10% band. Lactate was 2.7. He was given antibiotics and was admitted. Currently he said he just doesn't feel well. Past Medical History Medical History: 1. Coronary artery disease status post CABG in . 2. History of diabetes said he lost significant weight and he is not on any medication now. 3. Atrial fibrillation on anticoagulation. 4. Hypertension. 5. Hypothyroidism. 6. Hyperlipidemia. 7. 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 8. GERD. 9. Renal artery stenosis status post left renal artery stenting 2007. 10. History of melanoma of the right forearm status post to excision a year ago. 11. History of basal cell carcinoma. 12. Admission June 2016 for pneumonia and right pleural effusion he had thoracocentesis at that time. 13. Had an angiogram done October 2016 apparently from description it sounded he had the angioplasty but apparently this was not completed and he was supposed to have another angiography and intervention but was found to have anemia and he was admited to [facility] [place]. He was found to have colon cancer and the angiogram was postponed. 14. Colon cancer diagnosed November 2016 no surgical intervention yet, stage III based on PET scan according to the family. Had first cycle of chemotherapy Sunday a week from now. 2 masses based on their description. 15. he had repeat thoracocentesis also November 2016 done in [place]. Surgical History: 1. CABG. 2. Left endarterectomy. 3. Left total hip arthroplasty. 4. Herniated lumbar disc surgery and 80. 5. Right retinal detachment status post surgery in 2009. 6. History of left retinal discharge was status post surgery 2010 Pertinent Family History: Father at age 87 with cerebrovascular disease and questionable hypertension. Mother at age 87 from "old age" with a history of hypertension and a non-malignant abdominal tumor Tobacco Use: Current Every Day Smoker Substance Use Type: None Medication / Allergies Home Medications: Home Medications Medication Instructions Recorded Confirmed Type Aspirin [Aspirin EC] 81 mg ORAL QD 30 Days 05/15/12 01/07/17 Clinic Glucosa Aggarwal 2Kcl/Chondroitin [place]wal 1 each PO QD 30 Days 05/15/12 01/07/17 Clinic [Glucosamine Chondroitin Caplet] Cetirizine HCl [Zyrtec] 1 tab PO QD PRN #90 tab 09/07/14 01/07/17 Clinic Cholecalciferol (Vitamin D3) 1 cap PO QD #30 cap 04/30/15 01/07/17 Clinic [Vitamin D3] Albuterol Sulfate [Proair Hfa] 1 - 2 puff INH Q4-6H #1 inhaler 10/21/15 Clinic Nitroglycerin 1 tab SL PRN #30 tab 11/05/15 01/07/17 Clinic Warfarin Sodium [Coumadin] 2.5 mg PO QD #90 tab 11/29/15 01/07/17 Clinic Potassium Gluconate [Potassium] 99 mg PO BID 06/21/16 01/07/17 History Digoxin [Lanoxin] 1 tab PO QD #30 tab 07/25/16 01/07/17 Clinic Hydrocodone/Acetaminophen [[place] 1 tab PO Q6H PRN 08/02/16 01/07/17 History 5-325 Tablet] Furosemide [Lasix] 1 tab PO QOD #30 tab 08/08/16 01/07/17 Clinic Omeprazole 1 cap PO QD #90 cap 08/14/16 01/07/17 Clinic Nitroglycerin 1 cap PO Q12H #60 cap 10/11/16 01/07/17 Clinic Ranolazine [Ranexa] 1 tab PO BID #180 tab 11/02/16 01/07/17 Clinic Levothyroxine Sodium 1 tab PO QD #14 tab 12/18/16 01/07/17 Clinic Fluticasone Nasal [place] 0.05% 2 sprays FOX DAILY PRN 01/07/17 01/07/17 History [Flonase Nasal [place] 0.05%] LORazepam Tab [Ativan Tab] 1 mg PO Q4H PRN PRN 01/07/17 01/07/17 History Lisinopril 2.5 mg PO DAILY 01/07/17 01/07/17 History Metoprolol Succinate 25 mg PO DAILY 01/07/17 01/07/17 History Ondansetron HCl 8 mg PO Q8H PRN PRN 01/07/17 01/07/17 History Prochlorperazine Maleate 10 mg PO Q6H PRN PRN 01/07/17 01/07/17 History Allergies/Adverse Reactions: Allergies Allergy/AdvReac Type Severity Reaction Status Date / Time Penicillins Allergy Severe anaphylaxsi Verified 01/07/17 17:54 s venom-wasp Allergy Severe RASH Verified 01/07/17 17:54 Review of Systems - Review of Systems All Systems: Reviewed & No Additional Complaints Except as Stated Exam - General Additional General Exam Details: Appears tired - Head Head Exam: POSITIVE: Normal Inspection, Atraumatic - Eye Eye Exam: POSITIVE: Normal Appearance - ENT Additonal ENT Exam Details: Hard of hearing - Neck Neck Exam: POSITIVE: Normal Inspection - Respiratory Additional Respiratory Exam Details: Decreased breath sounds in the right lower lung base - Cardiovascular Cardiovascular Exam: POSITIVE: Irregular Rhythm, Tachycardia - GI/Abdominal GI/Abdominal Exam: POSITIVE: Normal Bowel Sounds, Non Distended, Soft Additional GI/Abdominal Exam Details: Diffuse Minimal tenderness in the lower abdomen, no rebound, no masses, no organomegaly. - Rectal Rectal Exam: POSITIVE: Deferred - External Exam: POSITIVE: Deferred - Extremities Extremities Exam: POSITIVE: Normal Inspection - Back Back Exam: POSITIVE: Normal Inspection - Neurological Neurological Exam: POSITIVE: Alert, Oriented x 3, CN II-XII Intact, Moves All Extremities Equally - Psychiatric Psychiatric Exam: POSITIVE: Normal Affect - Integumentary Integumentary Exam: POSITIVE: Dry, Pallor Additional Integumentary Exam Details: site of Port-A cath shows superficial bruising but no tenderness, no hematoma. No reddens. Results - Labs CBC and BMP: 07/23/17 15:33 01/07/17 15:33 - Imaging Status: Image Reviewed by Me (Chest x-ray showed small- moderate right pleural effusion with right Port-A-Cath.) Assessment and Plan - Patient Problems (1) Febrile neutropenia Current Visit: Yes Status: Acute Comment: Because of his multiple medical conditions will treat him as high-risk , will put him on meropenem and vancomycin because he had recent port insertion. The port site show some superficial bruising but there is no tenderness no hematoma. Continue IV fluid. Will repeat his lactate level again. Because of his age, and a possible sepsis I think he is the at higher risk of complications so will give him G-CSF and repeat his count in the morning. (2) Chronic atrial fibrillation Current Visit: No Status: Acute Comment: Continue previous medication, continue Coumadin. Repeat his INR tomorrow. (3) Hypothyroidism Current Visit: No Status: Acute Comment: Same medications (4) Hypomagnesemia Current Visit: Yes Status: Acute Comment: Replace magnesium repeat his labs in the morning. (5) History of coronary artery disease Current Visit: Yes Status: Acute Comment: Continue his previous medication, including aspirin, hold nitroglycerin tonight. We'll watch his blood pressure. Continue metoprolol.
[2017-01-07 17:38] LABS: BILIRUBIN,URINE NEGATIVE (NEG); CLARITY,URINE CLEAR (CLEAR); COLOR,URINE YELLOW; GLUCOSE, URINE (UA) NEGATIVE (NEG); NITRATE,URINE NEGATIVE (NEG); OCCULT BLOOD,URINE NEGATIVE (NEG); PROTEIN,URINE NEGATIVE (NEG); UROBILINOGEN,URINE 0.2 EU/dL (0.2)
[2017-01-07 17:41] LABS: RBC,URINE 0 /hpf; SQUAMOUS EPITHELIAL CELL,UR FEW; URINE SAMPLE TYPE CLEAN CATCH URINE; WBC,URINE 0-1
[2017-01-07] MEDS ORDERED: ONDANSETRON 4 MG/2 ML VIAL IVP PRN (17:55)
[2017-01-07] MEDS ORDERED: LIDOCAINE W/ SODIUM BICARB 0.5 ML SYR SUBD PRN (17:55)
[2017-01-07] MEDS ORDERED: Vancomycin-PHA to Dose IV PRN (18:07)
[2017-01-07] MEDS ORDERED: ALBUTEROL SULFATE 8.5 GM HFA INHALER INH PRN (18:16)
[2017-01-07] MEDS ORDERED: Magnesium Sulfate 2gm (Premix) 2 GM in Premix 1 BAG IV ONE (18:23)
[2017-01-07] MEDS: Sodium Chloride 0.9% 1,000 ML PRIMARY IV SCH (18:38)
[2017-01-07] MEDS ORDERED: Filgrastim Inj 480 MCG/0.8 ML SYRINGE SUBCUT ONE (18:52)
[2017-01-07] MEDS: HYDROcodone-APAP 5 MG -325 MG TABLET PO PRN (20:29)
[2017-01-07] MEDS: RANOLAZINE 500 MG PO SCH (20:31)
[2017-01-07] MEDS ORDERED: NITROGLYCERIN 6.5 MG PO SCH (21:00)
[2017-01-07] MEDS ORDERED: Warfarin Tab 2.5 MG TAB PO SCH (21:00)
[2017-01-08] MEDS: ACETAMINOPHEN 325 MG TABLET PO PRN (00:10)
[2017-01-08] MEDS: Meropenem Inj 1 GM in Sodium Chloride 0.9% 100 ML IV SCH ×4 (00:11→23:18)
[2017-01-08] MEDS: Sodium Chloride 0.9% 1,000 ML PRIMARY IV SCH ×4 (00:19→23:14)
[2017-01-08] MEDS: MORPHINE SULFATE 2 MG/1 ML IVP PRN ×2 (01:25→11:58)
[2017-01-08] MEDS: LEVOTHYROXINE 50 MCG TABLET PO SCH (05:07)
[2017-01-08 05:29] LABS: BUN/CREATININE RATIO 17.5 (6-20); SERUM ALBUMIN 2.9 g/dL (3.5-4.8)
[2017-01-08 05:49] LABS: HEMATOCRIT 28.5 % (42.0-52.0); HEMOGLOBIN 9.1 g/dL (14.0-18.0); MEAN CORPUSCULAR HEMOGLOBIN 23.8 PG (27-31); MEAN CORPUSCULAR HGB CONC 31.9 g/dL (33-37); MEAN CORPUSCULAR VOLUME 74.4 FL (80-90); MEAN PLATELET VOLUME 9.5 FL (7.4-12.2); RED BLOOD COUNT 3.83 10^6/uL (4.70-6.10)
[2017-01-08 05:50] LABS: PLATELET MORPHOLOGY COMMENT NORMAL MORPHOLOGY (NORM); RBC MORPHOLOGY COMMENT SEE COMMENTS (NORM); WBC MORPHOLOGY COMMENT SEE COMMENTS (NORM)
[2017-01-08 05:51] LABS: BAND NEUTROPHILS % 26 % (0-10); BASOPHILS % (MANUAL) 0 % (0-1); EOSINOPHILS % (MANUAL) 0 % (0-8); LYMPHOCYTES % (MANUAL) 37 % (10-50); METAMYELOCYTES % 3 %; MONOCYTES % (MANUAL) 10 % (0-12); MYELOCYTES % 2 %; NEUTROPHILS % (MANUAL) 22 % (50-80)
[2017-01-08] MEDS ORDERED: HEPARIN 500 UNIT/5 ML SYRINGE FOR CENTRAL LINE IVP PRN (07:05)
[2017-01-08] MEDS: OMEPRAZOLE 20 MG CAPSULE PO SCH (07:46)
--- NOTE | 2017-01-08 07:55 | PDOC(PROG) ---
Date and Time of Service: 01/08/2017 7:52 AM Interval History: Subjective Patient feels a lot better he said than yesterday. No more diarrhea since last evening and no more nausea or vomiting. He continued to have the cramps until early this morning when he got the morphine and now it's gone. No shortness of breath, no chest pain. Objective : Data - Labs CBC and BMP: 01/08/17 04:45 01/08/17 04:45 Labs - Last 24 Hours: Laboratory Results 01/07/17 01/07/17 01/07/17 Range/Units 17:12 17:31 21:23 WBC (4.8-10.8) 10^3/uL RBC (4.70-6.10) 10^6/uL Hgb (14.0-18.0) g/dL Hct (42.0-52.0) % MCV (80-90) FL MCH (27-31) PG MCHC (33-37) g/dL RDW Std Deviation (39-50) fL RDW Coeff of Shivam (11.5-14.5) % Plt Count (140-350) 10*3/uL MPV (7.4-12.2) FL Neutrophils % (Manual) (50-80) % Band Neutrophils % (0-10) % Lymphocytes % (Manual) (10-50) % Monocytes % (Manual) (0-12) % Eosinophils % (Manual) (0-8) % Basophils % (Manual) (0-1) % Metamyelocytes % % Myelocytes % % Promyelocytes % Blast Cells WBC Morphology Comment (NORM) Plt Morphology Comment (NORM) RBC Morph Comment (NORM) PT 14.4 H (9.7-11.4) secs INR 1.35 (0.00-5.90) N/A Sodium (135-145) meq/L Potassium (3.8-5.2) meq/L Chloride (98-112) meq/L Carbon Dioxide (23-33) meq/L Anion Gap (5-20) BUN (7-22) mg/dL Creatinine (0.70-1.50) mg/dL Estimated GFR (>60 ml/min/1.73m(2)) BUN/Creatinine Ratio (6-20) Glucose (78-110) mg/dL Calculated Osmolality (267-292) mOsm/kg Lactic Acid 2.4 H (0.70-2.10) MMOL/L Calcium (8.7-10.7) mg/dL Magnesium (1.6-2.4) mg/dL Total Bilirubin (0.3-1.2) mg/dL AST (21-57) IU/L ALT (21-72) IU/L Alkaline Phosphatase (38-126) IU/L Total Protein (6.1-8.0) g/dL Albumin (3.5-4.8) g/dL Globulin (2.50-4.10) g/dL Albumin/Globulin Ratio (1.3-2.0) mg/g Ur Collection Type Clean catch urine Urine Color Yellow Urine Clarity Clear (CLEAR) Urine pH 5.0 (5.0-8.5) Ur Specific [place] 1.025 (1.005-1.030) Urine Protein Negative (NEG) mg/dl Urine Glucose (UA) Negative (NEG) mg/dL Urine Ketones Negative (NEG) Urine Occult Blood Negative (NEG) Urine Nitrate Negative (NEG) Urine Bilirubin Negative (NEG) Urine Urobilinogen 0.2 (0.2) EU/dL Ur Leukocyte Esterase Trace (NEG) Urine RBC 0 (NONE) /hpf Urine WBC 0-1 (NONE) Ur Squamous Epith Cells Few (NONE) Ur Renal Epithelial Cell None (NONE) Urine Crystals None Urine Bacteria None (NONE) Urine Casts None (NONE) Urine Mucus Moderate (NONE) Urine Trichomonas None (NONE) Urine Yeast None (NONE) Ur Culture Indicated? Culture not set Digoxin (0.8-2.0) ng/mL 01/08/17 01/08/17 Range/Units 04:45 07:15 WBC 1.49 L (4.8-10.8) 10^3/uL RBC 3.83 L (4.70-6.10) 10^6/uL Hgb 9.1 L (14.0-18.0) g/dL Hct 28.5 L (42.0-52.0) % MCV 74.4 L (80-90) FL MCH 23.8 L (27-31) PG MCHC 31.9 L (33-37) g/dL RDW Std Deviation 73.1 H (39-50) fL RDW Coeff of Shivam 27.3 H (11.5-14.5) % Plt Count 151 (140-350) 10*3/uL MPV 9.5 (7.4-12.2) FL Neutrophils % (Manual) 22 L (50-80) % Band Neutrophils % 26 H (0-10) % Lymphocytes % (Manual) 37 (10-50) % Monocytes % (Manual) 10 (0-12) % Eosinophils % (Manual) 0 (0-8) % Basophils % (Manual) 0 (0-1) % Metamyelocytes % 3 % Myelocytes % 2 % Promyelocytes % Not Reportable Blast Cells Not Reportable WBC Morphology Comment See comments (NORM) Plt Morphology Comment Normal morphology (NORM) RBC Morph Comment See comments (NORM) PT 14.9 H (9.7-11.4) secs INR 1.40 (0.00-5.90) N/A Sodium 132 L (135-145) meq/L Potassium 3.8 (3.8-5.2) meq/L Chloride 99 (98-112) meq/L Carbon Dioxide 26 (23-33) meq/L Anion Gap 7 (5-20) BUN 14 (7-22) mg/dL Creatinine 0.8 (0.70-1.50) mg/dL Estimated GFR (>60 ml/min/1.73m(2)) BUN/Creatinine Ratio 17.50 (6-20) Glucose 177 H (78-110) mg/dL Calculated Osmolality 278.0 (267-292) mOsm/kg Lactic Acid 1.9 (0.70-2.10) MMOL/L Calcium 8.0 L (8.7-10.7) mg/dL Magnesium 1.8 (1.6-2.4) mg/dL Total Bilirubin 0.9 (0.3-1.2) mg/dL AST 11 L (21-57) IU/L ALT 24 (21-72) IU/L Alkaline Phosphatase 87 (38-126) IU/L Total Protein 5.6 L (6.1-8.0) g/dL Albumin 2.9 L (3.5-4.8) g/dL Globulin 2.7 (2.50-4.10) g/dL Albumin/Globulin Ratio 1.00 L (1.3-2.0) mg/g Ur Collection Type Urine Color Urine Clarity (CLEAR) Urine pH (5.0-8.5) Ur Specific [place] (1.005-1.030) Urine Protein (NEG) mg/dl Urine Glucose (UA) (NEG) mg/dL Urine Ketones (NEG) Urine Occult Blood (NEG) Urine Nitrate (NEG) Urine Bilirubin (NEG) Urine Urobilinogen (0.2) EU/dL Ur Leukocyte Esterase (NEG) Urine RBC (NONE) /hpf Urine WBC (NONE) Ur Squamous Epith Cells (NONE) Ur Renal Epithelial Cell (NONE) Urine Crystals Urine Bacteria (NONE) Urine Casts (NONE) Urine Mucus (NONE) Urine Trichomonas (NONE) Urine Yeast (NONE) Ur Culture Indicated? Digoxin 0.5 L (0.8-2.0) ng/mL Objective : Exam - General General Appearance: No Acute Distress, Cooperative - Head Head Exam: Normal Inspection, Atraumatic - Eye Eye Exam: Normal Appearance - ENT ENT Exam: Normal Exam - Neck Neck Exam: Normal Inspection - Respiratory Additional Respiratory Exam Details: Decreased breath sounds on the right lower lung base - Cardiovascular Cardiovascular Exam: Irregular Rhythm, Tachycardia - GI/Abdominal GI/Abdominal Exam: Normal Bowel Sounds, Non Distended, Soft Additional GI/Abdominal Exam Details: Some minimal tenderness in the left lower quadrant. - Rectal Rectal Exam: Deferred - External Exam: Deferred - Extremities Extremities Exam: Normal Inspection - Back Back Exam: Normal Inspection - Neurological Neurological Exam: Alert, Oriented x 3, CN II-XII Intact, Speech Intact / Clear - Psychiatric Psychiatric Exam: Normal Affect Assessment and Plan - Patient Problems (1) Febrile neutropenia Current Visit: Yes Status: Acute Comment: Continue current antibiotics, I think we'll cut back on his fluid. Will see whether we can stop the fluid at one point today. Hold the Lasix for another day. Likely will give him another dose of Neupogen today. We'll try to speak with oncology of them know that he is here. Because of the abdominal pain and tenderness in the abdomen will do a CT of his abdomen today (2) Chronic atrial fibrillation Current Visit: No Status: Acute Comment: He is continue to go fast continue digoxin and metoprolol. I don't think his rate was controlled from before based on my review of the outpatient records. We'll think about further adjustment to his medication depending on his response to medications, Specially his blood pressure. His INR is not therapeutic we'll increase the dosage of the warfarin. (3) Hypothyroidism Current Visit: No Status: Acute Comment: Same med (4) Hypomagnesemia Current Visit: Yes Status: Acute Comment: This is improved (5) History of coronary artery disease Current Visit: Yes Status: Acute Comment: Continue aspirin, continue metoprolol. We'll restart to the nitroglycerin tonight. Hold the Lasix for another day. (6) Pleural effusion, right Current Visit: No Status: Acute Comment: He continued to have right pleural effusion this was discovered first in June at that time it looked exudative and we treated him with antibiotics. He did have though 3 more thoracocentesis since that time. All were done in November of this year in [place] will try to get records in [place]. Based on what they told me they put him on Lasix and maybe they thought it's more transudate will see what the records show. I'll hold the Lasix for today consider restarting it tomorrow if his blood pressure remains stable.
[2017-01-08] MEDS ORDERED: NITROGLYCERIN 6.5 MG PO SCH (09:00)
[2017-01-08] MEDS: ASPIRIN EC 81 MG TABLET PO SCH (09:11)
[2017-01-08] MEDS: DIGOXIN 125 MCG TABLET PO SCH (09:11)
[2017-01-08] MEDS: METOPROLOL SUCCINATE 25 MG SR 24H TABLET PO SCH (09:11)
--- NOTE | 2017-01-08 09:16 | DI ---
XR CXR 1VW,01/07/2017 3:14 PM: Clinical History: Fever Previous Exam: November 19, 2016 Findings: A single frontal radiograph of the chest is obtained, and demonstrates a new chest port within the ri ght anterior chest wall with the tip at the cavoatrial junction. There is a stable right pleural effu mary. There has been resolution of a left pleural effusion. Patient is status post CABG. There is no new infiltrate identified. Mild degenerative changes are seen involving the shoulders. Impression: Stable right pleural effusion. Resolved left pleural effusion. New right chest wall port.
[2017-01-08] MEDS: RANOLAZINE 500 MG PO SCH ×2 (11:00→20:19)
--- NOTE | 2017-01-08 12:19 | DI ---
CT ABD W/CN AND PELVIS W/CN,01/08/2017 7:43 AM: Clinical History: Abdominal pain and history of colon cancer. Previous Exam: None at this facility. Findings: Multiple helically acquired CT images are obtained through the abdomen and pelvis following the intra venous administration of 75 cc of Isovue 300, and demonstrate a small right pleural effusion. There i s also what appears to be an area of cicatricial atelectasis in the right lung base. A few coronary artery calcifications are seen. Peripheral vascular calcification is also noted. Diffuse degenerative changes of the spine are seen. Peripheral vascular calcifications are noted. The gallbladder and liver are unremarkable. The adrenals and kidneys are grossly normal. The spleen and pancreas are unremarkable. There is some thickening throughout the entire colon. There is no free air nor free fluid. 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 Impression: 1. There is soft tissue density within the right lung base with a small right pleural effusion. This appears to represent some cicatricial atelectasis rather than a true mass. This could also represent an infiltrate. Correlate clinically. 2. Diffuse thickening of the colon from the cecum through the rectum. This is most consistent with co litis. Correlate clinically.
[2017-01-08] MEDS: HYDROcodone-APAP 5 MG -325 MG TABLET PO PRN ×2 (14:05→20:15)
[2017-01-08] MEDS: NITROGLYCERIN 6.5 MG PO SCH (20:15)
[2017-01-08] MEDS ORDERED: Warfarin Tab 3 MG TAB PO SCH (21:00)
[2017-01-08] MEDS ORDERED: Warfarin Tab 2.5 MG TAB PO SCH (21:00)
[2017-01-08] MEDS ORDERED: Filgrastim Inj 480 MCG/0.8 ML SYRINGE SUBCUT ONE (21:00)
[2017-01-09] MEDS: Sodium Chloride 0.9% 1,000 ML PRIMARY IV SCH ×2 (01:00→16:26)
[2017-01-09] MEDS: MORPHINE SULFATE 2 MG/1 ML IVP PRN ×4 (03:53→16:25)
[2017-01-09] MEDS: HYDROcodone-APAP 5 MG -325 MG TABLET PO PRN ×3 (03:53→15:26)
[2017-01-09 05:29] LABS: BUN/CREATININE RATIO 14.28 (6-20); CALCIUM 7.8 mg/dL (8.7-10.7)
[2017-01-09] MEDS: LEVOTHYROXINE 50 MCG TABLET PO SCH (05:55)
[2017-01-09] MEDS ORDERED: MAGNESIUM OXIDE 400 MG TABLET PO SCH (07:00)
[2017-01-09 07:23] LABS: HEMATOCRIT 27.2 % (42.0-52.0); HEMOGLOBIN 8.3 g/dL (14.0-18.0); MEAN CORPUSCULAR HEMOGLOBIN 22.7 PG (27-31); MEAN CORPUSCULAR HGB CONC 30.5 g/dL (33-37); MEAN CORPUSCULAR VOLUME 74.5 FL (80-90); RED BLOOD COUNT 3.65 10^6/uL (4.70-6.10)
[2017-01-09 07:24] LABS: MEAN PLATELET VOLUME 9.4 FL (7.4-12.2); PLATELET MORPHOLOGY COMMENT NORMAL MORPHOLOGY (NORM); RBC MORPHOLOGY COMMENT SEE COMMENTS (NORM)
[2017-01-09 07:29] LABS: WBC MORPHOLOGY COMMENT SEE COMMENTS (NORM)
[2017-01-09] MEDS: OMEPRAZOLE 20 MG CAPSULE PO SCH (07:38)
--- NOTE | 2017-01-09 08:41 | PDOC(PROG) ---
Date and Time of Service: 12/2016 800 hours Interval History: Subjective: Patient states he is feeling better this morning. He stated he was going to have a cup of bullion later this morning. He continues to have episodic bowel movements that he states are approximately 4 hours apart. This has improved for him. Objective: Patient's white count this morning is 1.06. His vancomycin trough is less than 5. HEENT: Atraumatic normocephalic, EOMs are intact, sclera is nonicteric. Chest: Clear to auscultation bilaterally with symmetrical nonlabored respiratory effort. Heart: Regular rate and rhythm with no clicks murmurs or rubs appreciated. Abdomen: Soft, mildly tender in the left lower quadrant, no rebound or guarding present. Bowel sounds are present. Extremities: Full range of motion or cyanosis appreciated. Skin: Warm dry, no rashes. Neuro: No ataxia, no headache cranial nerves II through XII are grossly intact. Assessment: Neutropenic fever with colitis of the colon. Plan: Continue with vancomycin and meropenem. Blood smear to pathology for white cell evaluation. Objective : Data - Labs CBC and BMP: 01/09/17 05:00 01/09/17 05:00 Labs - Last 24 Hours: Laboratory Results 01/09/17 Range/Units 05:00 WBC 1.06 L* (4.8-10.8) 10^3/uL RBC 3.65 L (4.70-6.10) 10^6/uL Hgb 8.3 L (14.0-18.0) g/dL Hct 27.2 L (42.0-52.0) % MCV 74.5 L (80-90) FL MCH 22.7 L (27-31) PG MCHC 30.5 L (33-37) g/dL RDW Std Deviation 73.3 H (39-50) fL RDW Coeff of Shivam 27.5 H (11.5-14.5) % Plt Count 154 (140-350) 10*3/uL MPV 9.4 (7.4-12.2) FL Immature Gran % (Auto) Not Reportable Neut % (Auto) Not Reportable Lymph % (Auto) Not Reportable [place] % (Auto) Not Reportable Eos % (Auto) Not Reportable Baso % (Auto) Not Reportable Immature Gran # (Auto) Not Reportable Neut # (Auto) Not Reportable Lymph # (Auto) Not Reportable [place] # (Auto) Not Reportable Eos # (Auto) Not Reportable Baso # (Auto) Not Reportable WBC Morphology Comment See comments (NORM) Plt Morphology Comment Normal morphology (NORM) RBC Morph Comment See comments (NORM) PT 20.2 H (9.7-11.4) secs INR 1.89 (0.00-5.90) N/A Sodium 132 L (135-145) meq/L Potassium 3.8 (3.8-5.2) meq/L Chloride 100 (98-112) meq/L Carbon Dioxide 26 (23-33) meq/L Anion Gap 6 (5-20) BUN 10 (7-22) mg/dL Creatinine 0.7 (0.70-1.50) mg/dL Estimated GFR (>60 ml/min/1.73m(2)) BUN/Creatinine Ratio 14.28 (6-20) Glucose 128 H (78-110) mg/dL Calculated Osmolality 274.0 (267-292) mOsm/kg Calcium 7.8 L (8.7-10.7) mg/dL Vancomycin Trough < 5.00 L (5.0-10.0) ug/ml
[2017-01-09] MEDS: ASPIRIN EC 81 MG TABLET PO SCH (09:22)
[2017-01-09] MEDS: METOPROLOL SUCCINATE 25 MG SR 24H TABLET PO SCH (09:24)
[2017-01-09] MEDS: NITROGLYCERIN 6.5 MG PO SCH (09:24)
[2017-01-09] MEDS: DIGOXIN 125 MCG TABLET PO SCH (09:25)
[2017-01-09] MEDS: RANOLAZINE 500 MG PO SCH (09:26)
[2017-01-09] MEDS: Meropenem Inj 1 GM in Sodium Chloride 0.9% 100 ML IV SCH ×2 (09:27→15:32)
[2017-01-09] MEDS ORDERED: Filgrastim Inj 480 MCG/0.8 ML SYRINGE SUBCUT ONE (11:08)
[2017-01-09] MEDS: ACETAMINOPHEN 325 MG TABLET PO PRN (12:34)
[2017-01-09 15:57] VITALS: RESP 24
[2017-01-09 17:17] VITALS: TEMP 101.1
--- NOTE | 2017-01-13 00:06 | DCSUMMARY ---
Hospitalization Summary Admit Date: 01/09/17 Discharge Date: 01/09/17 Primary Diagnosis:: neutropenic fever with colitis Hospital Course: This is an 86 YO male that was admitted with neutropenic fever. He was found to have a colitis and got worse through the hospital stay. He was transferred to [facility] for specialty support. He got two doses of neupogen and his WBC's went down, but continued to run fevers despite antibiotics. AT the time of discharge, the patient denied chest pain, shortness of breath, but had fevers. He complained of fatigue Disposition: discharged to [facility] Condition at Discharge: stable, but condition could get worse based on his clinical presentation Diet: as per [facility] Activities: as per [facility] Follow up: patient should see primary care provider 7 days post hospital stay and his oncologist SARITA medications: Home Medications Medication Instructions Recorded Confirmed Type Aspirin [Aspirin EC] 81 mg ORAL QD 30 Days 05/15/12 01/07/17 Clinic Glucosa Aggarwal 2Kcl/Chondroitin Aggarwal 1 each PO QD 30 Days 05/15/12 01/07/17 Clinic [Glucosamine Chondroitin [place]] Cetirizine HCl [Zyrtec] 1 tab PO QD PRN #90 tab 09/07/14 01/07/17 Clinic Cholecalciferol (Vitamin D3) 1 cap PO QD #30 cap 04/30/15 01/07/17 Clinic [Vitamin D3] Albuterol Sulfate [Proair Hfa] 1 - 2 puff INH Q4-6H #1 inhaler 10/21/15 Clinic Nitroglycerin 1 tab SL PRN #30 tab 11/05/15 01/07/17 Clinic Warfarin Sodium [Coumadin] 2.5 mg PO QD #90 tab 11/29/15 01/07/17 Clinic Potassium Gluconate [Potassium] 99 mg PO BID 06/21/16 01/07/17 History Digoxin [Lanoxin] 1 tab PO QD #30 tab 07/25/16 01/07/17 Clinic Hydrocodone/Acetaminophen [[place] 1 tab PO Q6H PRN 08/02/16 01/07/17 History 5-325 Tablet] Furosemide [Lasix] 1 tab PO QOD #30 tab 08/08/16 01/07/17 Clinic Omeprazole 1 cap PO QD #90 cap 08/14/16 01/07/17 Clinic Nitroglycerin 1 cap PO Q12H #60 cap 10/11/16 01/07/17 Clinic Ranolazine [Ranexa] 1 tab PO BID #180 tab 11/02/16 01/07/17 Clinic Levothyroxine Sodium 1 tab PO QD #14 tab 12/18/16 01/07/17 Clinic Fluticasone Nasal [place] 0.05% 2 sprays [place] DAILY PRN 01/07/17 01/07/17 History [Flonase Nasal [place] 0.05%] LORazepam Tab [Ativan Tab] 1 mg PO Q4H PRN PRN 01/07/17 01/07/17 History Lisinopril 2.5 mg PO DAILY 01/07/17 01/07/17 History Metoprolol Succinate 25 mg PO DAILY 01/07/17 01/07/17 History Ondansetron HCl 8 mg PO Q8H PRN PRN 01/07/17 01/07/17 History Prochlorperazine Maleate 10 mg PO Q6H PRN PRN 01/07/17 01/07/17 History Exam - Vitals Vital Signs: Vital Signs Temperature 101.1 F Temperature Source Oral Pulse Rate [Apical] 110 Pulse Rate [Pulse Oximeter 137 Left] Pulse Rate 130 Respiratory Rate 24 Blood Pressure [Left Arm] 97/52 Blood Pressure 145/65 Pulse Ox 91 Oxygen Flow Rate 3 Oxygen Delivery Method Nasal Cannula Height 5 ft 9 in Weight 197 lb 11.2 oz - General General Appearance: POSITIVE: Cooperative - Eye Eye Exam: POSITIVE: No Scleral Icterus - Neck Neck Exam: POSITIVE: Normal Inspection - Respiratory Respiratory Exam: POSITIVE: Clear to Auscultation - Bilaterally, Breathing Non Labored - Cardiovascular Cardiovascular Exam: POSITIVE: No Murmur, No Clicks, No Gallops, No Rubs, Tachycardia - GI/Abdominal GI/Abdominal Exam: POSITIVE: Soft, Diminished Bowel Sounds Additional GI/Abdominal Exam Details: mildly tender to palpation - Extremities Extremities Exam: POSITIVE: No Clubbing Present, No Edema Present, No Cyanosis Present - Neurological Neurological Exam: POSITIVE: Alert, Oriented x 3, No Facial Droop, Speech Intact / Clear, Moves All Extremities Equally - Psychiatric Psychiatric Exam: POSITIVE: Normal Affect, Anxious Data Perinent Studies: Laboratory Results 01/07/17 01/07/17 01/07/17 Range/Units 15:33 17:12 17:31 WBC 1.44 L (4.8-10.8) 10^3/uL RBC 4.35 L (4.70-6.10) 10^6/uL Hgb 10.2 L (14.0-18.0) g/dL Hct 32.2 L (42.0-52.0) % MCV 74.0 L (80-90) FL MCH 23.4 L (27-31) PG MCHC 31.7 L (33-37) g/dL RDW Std Deviation 72.0 H (39-50) fL RDW Coeff of Shivam 27.5 H (11.5-14.5) % Plt Count 181 (140-350) 10*3/uL MPV 8.9 (7.4-12.2) FL Immature Gran % (Auto) Neut % (Auto) Lymph % (Auto) [place] % (Auto) Eos % (Auto) Baso % (Auto) Immature Gran # (Auto) Neut # (Auto) Lymph # (Auto) [place] # (Auto) Eos # (Auto) Baso # (Auto) Neutrophils % (Manual) 53 (50-80) % Band Neutrophils % 10 (0-10) % Lymphocytes % (Manual) 28 (10-50) % Monocytes % (Manual) 8 (0-12) % Eosinophils % (Manual) 1 (0-8) % Basophils % (Manual) 0 (0-1) % Metamyelocytes % Not Reportable Myelocytes % Not Reportable Promyelocytes % Not Reportable Blast Cells Not Reportable WBC Morphology Comment Normal morphology (NORM) Plt Morphology Comment Normal morphology (NORM) RBC Morph Comment See comments (NORM) Smear Path Review (SEE COMMENT) PT 14.4 H (9.7-11.4) secs INR 1.35 (0.00-5.90) N/A Sodium 133 L (135-145) meq/L Potassium 3.9 (3.8-5.2) meq/L Chloride 96 L (98-112) meq/L Carbon Dioxide 28 (23-33) meq/L Anion Gap 9 (5-20) BUN 12 (7-22) mg/dL Creatinine 0.9 (0.70-1.50) mg/dL Estimated GFR (>60 ml/min/1.73m(2)) BUN/Creatinine Ratio 13.33 (6-20) Glucose 172 H (78-110) mg/dL Calculated Osmolality 279.0 (267-292) mOsm/kg Lactic Acid 2.7 H (0.70-2.10) MMOL/L Calcium 8.6 L (8.7-10.7) mg/dL Magnesium 1.2 L (1.6-2.4) mg/dL Total Bilirubin 0.8 (0.3-1.2) mg/dL AST 15 L (21-57) IU/L ALT 27 (21-72) IU/L Alkaline Phosphatase 113 (38-126) IU/L C-Reactive Protein 6.7 H (0.0-0.9) mg/dL Total Protein 6.5 (6.1-8.0) g/dL Albumin 3.5 (3.5-4.8) g/dL Globulin 3.1 (2.50-4.10) g/dL Albumin/Globulin Ratio 1.10 L (1.3-2.0) mg/g Ur Collection Type Clean catch urine Urine Color Yellow Urine Clarity Clear (CLEAR) Urine pH 5.0 (5.0-8.5) Ur Specific [place] 1.025 (1.005-1.030) Urine Protein Negative (NEG) mg/dl Urine Glucose (UA) Negative (NEG) mg/dL Urine Ketones Negative (NEG) Urine Occult Blood Negative (NEG) Urine Nitrate Negative (NEG) Urine Bilirubin Negative (NEG) Urine Urobilinogen 0.2 (0.2) EU/dL Ur Leukocyte Esterase Trace (NEG) Urine RBC 0 (NONE) /hpf Urine WBC 0-1 (NONE) Ur Squamous Epith Cells Few (NONE) Ur Renal Epithelial Cell None (NONE) Urine Crystals None Urine Bacteria None (NONE) Urine Casts None (NONE) Urine Mucus Moderate (NONE) Urine Trichomonas None (NONE) Urine Yeast None (NONE) Ur Culture Indicated? Culture not set Vancomycin Trough (5.0-10.0) ug/ml Digoxin (0.8-2.0) ng/mL 01/07/17 01/08/17 01/08/17 Range/Units 21:23 04:45 07:15 WBC 1.49 L (4.8-10.8) 10^3/uL RBC 3.83 L (4.70-6.10) 10^6/uL Hgb 9.1 L (14.0-18.0) g/dL Hct 28.5 L (42.0-52.0) % MCV 74.4 L (80-90) FL MCH 23.8 L (27-31) PG MCHC 31.9 L (33-37) g/dL RDW Std Deviation 73.1 H (39-50) fL RDW Coeff of Shivam 27.3 H (11.5-14.5) % Plt Count 151 (140-350) 10*3/uL MPV 9.5 (7.4-12.2) FL Immature Gran % (Auto) Neut % (Auto) Lymph % (Auto) [place] % (Auto) Eos % (Auto) Baso % (Auto) Immature Gran # (Auto) Neut # (Auto) Lymph # (Auto) [place] # (Auto) Eos # (Auto) Baso # (Auto) Neutrophils % (Manual) 22 L (50-80) % Band Neutrophils % 26 H (0-10) % Lymphocytes % (Manual) 37 (10-50) % Monocytes % (Manual) 10 (0-12) % Eosinophils % (Manual) 0 (0-8) % Basophils % (Manual) 0 (0-1) % Metamyelocytes % 3 Myelocytes % 2 Promyelocytes % Not Reportable Blast Cells Not Reportable WBC Morphology Comment See comments (NORM) Plt Morphology Comment Normal morphology (NORM) RBC Morph Comment See comments (NORM) Smear Path Review (SEE COMMENT) PT 14.9 H (9.7-11.4) secs INR 1.40 (0.00-5.90) N/A Sodium 132 L (135-145) meq/L Potassium 3.8 (3.8-5.2) meq/L Chloride 99 (98-112) meq/L Carbon Dioxide 26 (23-33) meq/L Anion Gap 7 (5-20) BUN 14 (7-22) mg/dL Creatinine 0.8 (0.70-1.50) mg/dL Estimated GFR (>60 ml/min/1.73m(2)) BUN/Creatinine Ratio 17.50 (6-20) Glucose 177 H (78-110) mg/dL Calculated Osmolality 278.0 (267-292) mOsm/kg Lactic Acid 2.4 H 1.9 (0.70-2.10) MMOL/L Calcium 8.0 L (8.7-10.7) mg/dL Magnesium 1.8 (1.6-2.4) mg/dL Total Bilirubin 0.9 (0.3-1.2) mg/dL AST 11 L (21-57) IU/L ALT 24 (21-72) IU/L Alkaline Phosphatase 87 (38-126) IU/L C-Reactive Protein (0.0-0.9) mg/dL Total Protein 5.6 L (6.1-8.0) g/dL Albumin 2.9 L (3.5-4.8) g/dL Globulin 2.7 (2.50-4.10) g/dL Albumin/Globulin Ratio 1.00 L (1.3-2.0) mg/g Ur Collection Type Urine Color Urine Clarity (CLEAR) Urine pH (5.0-8.5) Ur Specific [place] (1.005-1.030) Urine Protein (NEG) mg/dl Urine Glucose (UA) (NEG) mg/dL Urine Ketones (NEG) Urine Occult Blood (NEG) Urine Nitrate (NEG) Urine Bilirubin (NEG) Urine Urobilinogen (0.2) EU/dL Ur Leukocyte Esterase (NEG) Urine RBC (NONE) /hpf Urine WBC (NONE) Ur Squamous Epith Cells (NONE) Ur Renal Epithelial Cell (NONE) Urine Crystals Urine Bacteria (NONE) Urine Casts (NONE) Urine Mucus (NONE) Urine Trichomonas (NONE) Urine Yeast (NONE) Ur Culture Indicated? Vancomycin Trough (5.0-10.0) ug/ml Digoxin 0.5 L (0.8-2.0) ng/mL 01/09/17 01/09/17 Range/Units 05:00 07:30 WBC 1.06 L* (4.8-10.8) 10^3/uL RBC 3.65 L (4.70-6.10) 10^6/uL Hgb 8.3 L (14.0-18.0) g/dL Hct 27.2 L (42.0-52.0) % MCV 74.5 L (80-90) FL MCH 22.7 L (27-31) PG MCHC 30.5 L (33-37) g/dL RDW Std Deviation 73.3 H (39-50) fL RDW Coeff of Shivam 27.5 H (11.5-14.5) % Plt Count 154 (140-350) 10*3/uL MPV 9.4 (7.4-12.2) FL Immature Gran % (Auto) Not Reportable Neut % (Auto) Not Reportable Lymph % (Auto) Not Reportable [place] % (Auto) Not Reportable Eos % (Auto) Not Reportable Baso % (Auto) Not Reportable Immature Gran # (Auto) Not Reportable Neut # (Auto) Not Reportable Lymph # (Auto) Not Reportable [place] # (Auto) Not Reportable Eos # (Auto) Not Reportable Baso # (Auto) Not Reportable Neutrophils % (Manual) (50-80) % Band Neutrophils % (0-10) % Lymphocytes % (Manual) (10-50) % Monocytes % (Manual) (0-12) % Eosinophils % (Manual) (0-8) % Basophils % (Manual) (0-1) % Metamyelocytes % Myelocytes % Promyelocytes % Blast Cells WBC Morphology Comment See comments (NORM) Plt Morphology Comment Normal morphology (NORM) RBC Morph Comment See comments (NORM) Smear Path Review See comments (SEE COMMENT) PT 20.2 H (9.7-11.4) secs INR 1.89 (0.00-5.90) N/A Sodium 132 L (135-145) meq/L Potassium 3.8 (3.8-5.2) meq/L Chloride 100 (98-112) meq/L Carbon Dioxide 26 (23-33) meq/L Anion Gap 6 (5-20) BUN 10 (7-22) mg/dL Creatinine 0.7 (0.70-1.50) mg/dL Estimated GFR (>60 ml/min/1.73m(2)) BUN/Creatinine Ratio 14.28 (6-20) Glucose 128 H (78-110) mg/dL Calculated Osmolality 274.0 (267-292) mOsm/kg Lactic Acid (0.70-2.10) MMOL/L Calcium 7.8 L (8.7-10.7) mg/dL Magnesium (1.6-2.4) mg/dL Total Bilirubin (0.3-1.2) mg/dL AST (21-57) IU/L ALT (21-72) IU/L Alkaline Phosphatase (38-126) IU/L C-Reactive Protein (0.0-0.9) mg/dL Total Protein (6.1-8.0) g/dL Albumin (3.5-4.8) g/dL Globulin (2.50-4.10) g/dL Albumin/Globulin Ratio (1.3-2.0) mg/g Ur Collection Type Urine Color Urine Clarity (CLEAR) Urine pH (5.0-8.5) Ur Specific [place] (1.005-1.030) Urine Protein (NEG) mg/dl Urine Glucose (UA) (NEG) mg/dL Urine Ketones (NEG) Urine Occult Blood (NEG) Urine Nitrate (NEG) Urine Bilirubin (NEG) Urine Urobilinogen (0.2) EU/dL Ur Leukocyte Esterase (NEG) Urine RBC (NONE) /hpf Urine WBC (NONE) Ur Squamous Epith Cells (NONE) Ur Renal Epithelial Cell (NONE) Urine Crystals Urine Bacteria (NONE) Urine Casts (NONE) Urine Mucus (NONE) Urine Trichomonas (NONE) Urine Yeast (NONE) Ur Culture Indicated? Vancomycin Trough < 5.00 L (5.0-10.0) ug/ml Digoxin (0.8-2.0) ng/mL Patient Problems - Patient Problem List (1) Febrile neutropenia Status: Acute (2) Colon cancer Status: Acute (3) Chronic atrial fibrillation Status: Acute
== END 2017-01-09 17:53 | disposition short-term general hospital (02) | DRG 809 ==
LOC: ER 15:00 → MED/SURG 16:45
PROVIDERS: ADMIT Internal Medicine; ATTEND Internal Medicine
DX: E86.0 Dehydration (principal); R50.9 Fever, unspecified; D70.9 Neutropenia, unspecified; C18.9 Malignant neoplasm of colon, unspecified; J90 Pleural effusion, not elsewhere classified; R50.81 Fever presenting with conditions classified elsewhere; K52.9 Noninfective gastroenteritis and colitis, unspecified; I48.91 Unspecified atrial fibrillation; E03.9 Hypothyroidism, unspecified; E83.42 Hypomagnesemia
CPT/HCPCS: 36415; 71010; 80053; 83605; 83735; 85007; 86140; 87040; 96365; 96375; 99284 ×2; J2185; J2405; J3370; 74177; 80048; 80162; 80202; 81001; 81003; 85025; 85610; 87046; 87205; 87493; 94761; J2270; J3475; J7030; J7050

== ENCOUNTER → 2017-01-18 | Outpatient (CLI) | payer OTHER | LOC: MMPC 11:11 | DX: Z79.01 Long term (current) use of anticoagulants (principal); Z51.81 Encounter for therapeutic drug level monitoring; I48.91 Unspecified atrial fibrillation | CPT/HCPCS: 85610; 99213 ==

== ENCOUNTER 2017-01-24 17:34 | Inpatient (IN) | payer OTHER ==
[2017-01-24] MEDS ORDERED: Sodium Chloride 0.9% 1,000 ML PRIMARY IV ONE (18:03)
[2017-01-24] MEDS ORDERED: ACETAMINOPHEN 325 MG TABLET PO ONE (18:03)
[2017-01-24] MEDS ORDERED: NORMAL SALINE 10 ML SYRINGE FLUSH IVP PRN ×2 (18:03→21:42)
[2017-01-24 18:30] LABS: BASOPHILS # (AUTO) 0.01 10*3/UL; BASOPHILS % (AUTO) 0.4 % (0-1); EOSINOPHILS # (AUTO) 0 10*3/UL; EOSINOPHILS % (AUTO) 0 % (0-8); HEMATOCRIT 29.4 % (42.0-52.0); HEMOGLOBIN 9.4 g/dL (14.0-18.0); LYMPHOCYTES # (AUTO) 0.57 10*3/uL; MEAN CORPUSCULAR HEMOGLOBIN 24.2 PG (27-31); MEAN CORPUSCULAR VOLUME 75.8 FL (80-90); MEAN PLATELET VOLUME 9.1 FL (7.4-12.2); MONOCYTES # (AUTO) 0.33 10*3/UL (0.3-0.8); MONOCYTES % (AUTO) 12.7 % (5-15); NEUTROPHILS # (AUTO) 1.67 10*3/UL; NEUTROPHILS % (AUTO) 64.5 % (50-80); RED BLOOD COUNT 3.88 10^6/uL (4.70-6.10)
[2017-01-24 18:42] LABS: BLOOD UREA NITROGEN 15 mg/dL (7-22); BUN/CREATININE RATIO 16.66 (6-20); C-REACTIVE PROTEIN 7.8 mg/dL (0.0-0.9); CALCIUM 8.5 mg/dL (8.7-10.7); MAGNESIUM 1.2 mg/dL (1.6-2.4); SERUM ALBUMIN 3.1 g/dL (3.5-4.8)
--- NOTE | 2017-01-24 18:47 | EKG ---
[address] [address] Measurements Intervals [place] Rate: 88 P: 263 NM: 139 QRS: 51 QRSD: 85 T: 97 QT: 358 QTc: 403 Interpretive Statements JUNCTIONAL RHYTHM NONSPECIFIC ST & T-WAVE ABNORMALITY ABNORMAL RHYTHM ECG Compared to ECG 11/19/2016 23:48:30 Junctional rhythm now present T-wave abnormality still present Electronically Signed On 01-25-17 13:22:15 MDT by Guy Wood MD [email or web address]
--- NOTE | 2017-01-24 18:49 | PDOC ---
General Adult HPI - General Chief Complaint: General Medical Stated Complaint: FEVER Date Seen by Provider: 01/24/17 Time Seen by Provider: 17:55 Source: POSITIVE: Patient, Other (family) Exam Limitations: POSITIVE: No limitations Nurse's Notes Reviewed & Considered: Yes - History of Present Illness Initial Comment: The patient is an 86-year-old male who is brought to the emergency department with fever. He was diagnosed with colon cancer earlier this summer. He started chemotherapy several weeks ago. After his first dose of chemotherapy the patient had developed vomiting and diarrhea associated with fever. He was also found to be neutropenic at that time and was admitted initially here at our facility and subsequently [place] [facility] [place] All of his cultures were subsequently negative and he was thought to have a viral illness. He had been doing better and received his second dose of chemotherapy just over a week ago. Have you received a tetanus shot in the past 10 years?: Unknown - Patient Home Medications Home Medications: Home Medications Aspirin [Aspirin EC] 81 mg ORAL QD 30 Days 05/15/12 Glucosa Aggarwal 2Kcl/Chondroitin Aggarwal [Glucosamine Chondroitin Caplet] 1 each PO QD 30 Days 05/15/12 Cetirizine HCl [Zyrtec] 1 tab PO QD PRN #90 tab 09/07/14 Cholecalciferol (Vitamin D3) [Vitamin D3] 1 cap PO QD #30 cap 04/30/15 Albuterol Sulfate [Proair Hfa] 1 - 2 puff INH Q4-6H #1 inhaler 10/21/15 Nitroglycerin 1 tab SL PRN #30 tab 11/05/15 Warfarin Sodium [Coumadin] 2.5 mg PO QD #90 tab 11/29/15 Potassium Gluconate [Potassium] 99 mg PO BID 06/21/16 Digoxin [Lanoxin] 1 tab PO QD #30 tab 07/25/16 Hydrocodone/Acetaminophen [[place]elson 5-325 Tablet] 1 tab PO Q6H PRN 08/02/16 Furosemide [Lasix] 1 tab PO QOD #30 tab 08/08/16 Omeprazole 1 cap PO QD #90 cap 08/14/16 Nitroglycerin 1 cap PO Q12H #60 cap 10/11/16 Ranolazine [Ranexa] 1 tab PO BID #180 tab 11/02/16 Levothyroxine Sodium 1 tab PO QD #14 tab 12/18/16 Fluticasone Nasal [place] 0.05% [Flonase Nasal [place] 0.05%] 2 sprays FOX DAILY PRN 01/07/17 LORazepam Tab [Ativan Tab] 1 mg PO Q4H PRN PRN 01/07/17 Metoprolol Succinate 25 mg PO DAILY 01/07/17 Ondansetron HCl 8 mg PO Q8H PRN PRN 01/07/17 Prochlorperazine Maleate 10 mg PO Q6H PRN PRN 01/07/17 - Patient Allergies Allergies/Adverse Reactions: Allergies Allergy/AdvReac Type Severity Reaction Status Date / Time Penicillins Allergy Severe anaphylaxsi Verified 01/24/17 17:40 s venom-wasp Allergy Severe RASH Verified 01/24/17 17:40 Past Medical History - heen HEENT History: Cataracts, Dentures/Partials Additional HEENT History: BILAT RETINAL DETACHEMENT/UPPER AND LOWER DENTURES Cardiovascular History: Hypertension, Arrhythmia, Hyperlipidemia Additional Cardiovasular History: 5 vessel CABG/A-FIB/CAROTID ARTERY STENOSIS Respiratory History: Pneumonia Additional Respiratory History: PNEUMONIA MULTIPLE TIMES. 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 Neurological History: Denies History Blood Disorders: Other (please comment) Additional Blood Disorders History: CURRENTLY TAKES ASA/COUMADIN DUE TO TREATMENT FOR AFIB Psychiatric History: Denies History History of Sexually Transmitted Diseases: No Cancer History: Colon, Skin Cancer Treatment / Date(s) of Treatment: REMOVAL In Past Year Been Physically Harmed or Verbally Threatened: No History of MDRO: No History of Other Communicable Diseases: No Tobacco Use: Former Smoker Alcohol Use: Rarely Substance Use Type: None Previous Surgical History: Yes Type / Date of Surgery: CABG 5 VESSEL 1990/LEFT ERNAL ARTERY STENTING 2007/L PETE 2005/LUMBAR DISC SURGICAL REPAIR 1977/TONSILLECTOMY/RENAL DETACHMENT 2009& 2010/MULTIPLE BASAL CELL CARCINOMAS/BILAT CATERACTS/VASECTOMY Anesthesia Reactions: No Malignant Hyperthermia: No Significant Family History: Heart disease, Cancer, Diabetes, Hypertension Additional Family History: FATHER- DIABETES General Adult Progress - Results Reviewed by me Xrays/CTs/US Reviewed by me: Yes Discussed with Radiologist: Yes Radiology Findings: Chest x-ray shows right-sided pleural effusion unchanged from previous. CT scan of the chest for PE protocol was negative for PE, continued right-sided effusion and atelectasis unchanged from previous. CT scan of the abdomen and pelvis with IV contrast reveals no acute intra- abdominal pathology per radiologist. Lab Results Reviewed: Yes Lab Results:: Laboratory Results 01/24/17 Range/Units 18:25 WBC 2.59 L (4.8-10.8) 10^3/uL RBC 3.88 L (4.70-6.10) 10^6/uL Hgb 9.4 L (14.0-18.0) g/dL Hct 29.4 L (42.0-52.0) % MCV 75.8 L (80-90) FL MCH 24.2 L (27-31) PG MCHC 32.0 L (33-37) g/dL RDW Std Deviation 73.9 H (39-50) fL RDW Coeff of Shivam 27.8 H (11.5-14.5) % Plt Count 240 (140-350) 10*3/uL MPV 9.1 (7.4-12.2) FL Immature Gran % (Auto) 0.4 (0-5) % Neut % (Auto) 64.5 (50-80) % Lymph % (Auto) 22.0 (10-50) % [place] % (Auto) 12.7 (5-15) % Eos % (Auto) 0 (0-8) % Baso % (Auto) 0.4 (0-1) % Immature Gran # (Auto) 0.01 10*3/UL Neut # (Auto) 1.67 10*3/UL Lymph # (Auto) 0.57 10*3/uL [place] # (Auto) 0.33 (0.3-0.8) 10*3/UL Eos # (Auto) 0 10*3/UL Baso # (Auto) 0.01 10*3/UL WBC Morphology Comment See comments (NORM) Plt Morphology Comment Normal morphology (NORM) RBC Morph Comment See comments (NORM) PT 16.1 H (9.7-11.4) secs INR 1.51 (0.00-5.90) N/A Sodium 130 L (135-145) meq/L Potassium 4.3 (3.8-5.2) meq/L Chloride 93 L (98-112) meq/L Carbon Dioxide 27 (23-33) meq/L Anion Gap 10 (5-20) BUN 15 (7-22) mg/dL Creatinine 0.9 (0.70-1.50) mg/dL Estimated GFR (>60 ml/min/1.73m(2)) BUN/Creatinine Ratio 16.66 (6-20) Glucose 164 H (78-110) mg/dL Calculated Osmolality 274.0 (267-292) mOsm/kg Lactic Acid 2.3 H (0.70-2.10) MMOL/L Calcium 8.5 L (8.7-10.7) mg/dL Magnesium 1.2 L (1.6-2.4) mg/dL Total Bilirubin 1.1 (0.3-1.2) mg/dL AST 14 L (21-57) IU/L ALT 24 (21-72) IU/L Alkaline Phosphatase 111 (38-126) IU/L Total Creatine Kinase < 20 L (55-170) IU/L Troponin I 0.019 (< 0.040) ng/mL C-Reactive Protein 7.8 H (0.0-0.9) mg/dL Total Protein 6.0 L (6.1-8.0) g/dL Albumin 3.1 L (3.5-4.8) g/dL Globulin 2.9 (2.50-4.10) g/dL Albumin/Globulin Ratio 1.00 L (1.3-2.0) mg/g Digoxin < 0.4 L (0.8-2.0) ng/mL EKG Interpreted/Reviewed By Me:: Yes EKG Interpretation:: POSITIVE: Normal Rate, Normal QRS, Normal ST/T, Other ( Atrial fibrillation with no acute changes when compared to previous EKGs) - Patient's Progress MDM / ED Course: The patient was febrile on arrival with a temperature 100.7. An IV was established and blood cultures and lactate were drawn. The patient did receive 1 L bolus of normal saline as well as Tylenol 650 mg by mouth. Blood work revealed a white count of 2.5 with a hemoglobin of 9.6. His sodium is 1:30 and his magnesium is 1.2. CRP is elevated at 7.5. Lactate is mildly elevated at 2.3. Findings were discussed with the patient and his family. He was given 2 g of magnesium IV. I also discussed the patient with Dr. Grider. The patient was started on Levaquin and vancomycin with cultures pending. He recommended CT PE protocol as well as abdomen and pelvis which was done. This did not reveal any evidence of PE, he has chronic right-sided pleural effusion with no acute intra- abdominal findings per radiologist. Decision was made to admit the patient for continued treatment. The patient and his family are in agreement with this plan and Dr. Grider has agreed to admit the patient. - Consult Counseled: POSITIVE: Patient, Family, RE: Lab Results, RE: Radiology Results, RE : DX, RE: Need for F/U Patient Care Time - Estimated PCT Patient Care Time (In Minutes): 45 Vital Signs - Recent Vital Signs Vital Signs: Vital Signs (Last 8 hours) Temp Pulse Resp BP Pulse Ox 01/24/17 18:31 100.7 F H 01/24/17 18:00 100.7 F H 01/24/17 17:54 99.1 F 111 H 28 H 119/69 95 - VS Reviewed Vital Signs Reviewed: Yes Discharge Clinical Impression: Dehydration, Fever, Chronic atrial fibrillation, Hypomagnesemia, Hyponatremia Discharge Disposition: Admit to Inpatient Condition: Stable Date Decision to Admit to Inpatient: 01/24/17 Time Decision to Admit to Inpatient: 21:45
[2017-01-24 18:53] LABS: PLATELET MORPHOLOGY COMMENT NORMAL MORPHOLOGY (NORM); RBC MORPHOLOGY COMMENT SEE COMMENTS (NORM)
[2017-01-24 18:54] LABS: WBC MORPHOLOGY COMMENT SEE COMMENTS (NORM)
[2017-01-24] MEDS ORDERED: Magnesium Sulfate 2gm (Premix) 2 GM in Premix 1 BAG IV ONE (18:56)
[2017-01-24] MEDS ORDERED: Levofloxacin 500mg (Premix) 500 MG in Dextrose 1 BAG IV ONE (19:19)
--- NOTE | 2017-01-24 19:50 | DI ---
XR CXR 1VW,01/24/2017 6:03 PM: Clinical History: Fever Previous Exam: January 07, 2017 Findings: A single frontal radiograph of the chest is obtained, and demonstrates a large right pleural effusion . Postsurgical changes are noted consistent with prior sternotomy. Multiple surgical clips are seen. Mild degenerative changes are seen involving the acromioclavicular joints. Impression: Stable large right pleural effusion otherwise unremarkable.
[2017-01-24] MEDS ORDERED: Levofloxacin 500mg (Premix) 100 ML IV ONE (20:19)
--- NOTE | 2017-01-24 21:20 | DI ---
CT ABD W/CN AND PELVIS W/CN, CT CTA CHEST NONCORONARY W/WO,01/24/2017 7:20 PM: Clinical History: Fever Previous Exam: 10/17/16 Findings: Multiple helically acquired CT images are obtained through the chest following a CT angiogram protoco l, and demonstrate diffuse peripheral vascular calcifications. The pulmonary arteries are normal without truncation or filling defect to suggest pulmonary embolism. There is subsegmental atelectasis in the right lung base with a right pleural effusion. Multiple surgical clips are seen within the heart most consistent with prior CABG. The surrounding soft tissues are unremarkable. The upper abdomen is also unremarkable. Abdomen/pelvis: Images are also obtained through the abdomen and pelvis, and demonstrate diffuse sen pheral vascular disease. Renal artery stents are noted. There is a large amount of dried stool and air noted throughout the colon. Peripheral vascular calcifications are seen. The urinary bladder is unremarkable. Advanced degenerative changes of the right hip are noted. Patien t is status post left total hip arthroplasty. Diffuse degenerative changes of the spine are seen. Impression: Large right pleural effusion and airspace disease within the right lung base may represent pneumonia. Correlate clinically. No acute intra-abdominal pathology. No evidence of pulmonary embolism.
[2017-01-24] MEDS ORDERED: Prochlorperazine Tab 10 MG TAB PO PRN (21:42)
[2017-01-24] MEDS ORDERED: LORazepam 1 MG TABLET PO PRN (21:42)
[2017-01-24] MEDS ORDERED: ONDANSETRON 4 MG/2 ML VIAL IVP PRN (21:42)
[2017-01-24] MEDS ORDERED: HYDROcodone-APAP 5 MG -325 MG TABLET PO PRN (21:42)
[2017-01-24] MEDS ORDERED: ACETAMINOPHEN 325 MG TABLET PO PRN (21:42)
[2017-01-24] MEDS ORDERED: ALBUTEROL SULFATE 8.5 GM HFA INHALER INH PRN (21:42)
[2017-01-24] MEDS ORDERED: NITROGLYCERIN 0.4 MG SL TAB (BOTTLE OF 3) SL PRN (21:42)
[2017-01-24] MEDS ORDERED: LIDOCAINE W/ SODIUM BICARB 0.5 ML SYR SUBD PRN (21:42)
[2017-01-24] MEDS ORDERED: [UNRECOGNIZED DRUG - OTHER] PO SCH (21:42)
[2017-01-24] MEDS ORDERED: Warfarin 5 MG TAB PO SCH (22:30)
--- NOTE | 2017-01-24 22:38 | PDOC ---
History and Physical - History of Present Illness Date and Time of Service: 01/24/2017, 2235 Chief Complaint: Fever History of Present Illness: This very pleasant but very tepid looking 86-year-old man who has colon cancer and is in active chemotherapy. He's had 2 cycles of chemotherapy and after his first cycle he developed fever related to colitis 9 days after chemotherapy. He is in at 8 days after his last treatment with fevers that started this morning. He has not been able to eat very well the last couple days and this had some loose stools but outside of that he has not had any nausea, vomiting, abdominal pain, cough, urinary complaints, or other issues. He did have a headache and some neck pain but he states the neck pain is chronic and tends to cause occipital headaches. Outside of some Imodium for the loose stools, no other interventions were started prior to coming into the emergency room. I had the patient get some antibiotics and have some scans done. He had some blood cultures drawn both peripherally and from his port. He has not had any problems from the port and has not had any drainage or erythema there. His energy level has decreased. He's lost 10 pounds in the past week. History is very difficult to obtain as the patient is wiped out and extremely fatigued at this time. Past Medical History Medical History: 1. Coronary artery disease status post CABG in . 2. History of diabetes said he lost significant weight and he is not on any medication now. 3. Atrial fibrillation on anticoagulation. 4. Hypertension. 5. Hypothyroidism. 6. Hyperlipidemia. 7. 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 8. GERD. 9. Renal artery stenosis status post left renal artery stenting 2007. 10. History of melanoma of the right forearm status post to excision a year ago. 11. History of basal cell carcinoma. 12. Admission June 2016 for pneumonia and right pleural effusion he had thoracocentesis at that time. 13. Had an angiogram done October 2016 apparently from description it sounded he had the angioplasty but apparently this was not completed and he was supposed to have another angiography and intervention but was found to have anemia and [place] [facility] [place] was found to have colon cancer and the angiogram was postponed. 14. Colon cancer diagnosed November 2016 no surgical intervention yet, stage III based on PET scan according to the family. They plan to do chemotherapy for 6 months minimum and he has had 2 cycles thus far. 2 masses based on their description. 15. he had repeat thoracocentesis also November 2016 done in [place]. He states to me that he said for thoracentesis procedures thus far and they have all been "negative" Surgical History: 1. CABG. 2. Left endarterectomy. 3. Left total hip arthroplasty. 4. Herniated lumbar disc surgery and 80. 5. Right retinal detachment status post surgery in 2009. 6. History of left retinal discharge was status post surgery 2010. 7. Thoracentesis 4, right side Pertinent Family History: Father at age 87 with cerebrovascular disease and questionable hypertension. Mother at age 87 from "old age" with a history of hypertension and a non-malignant abdominal tumor Past Social History: History of smoking. Has a caregiver that lives with him. Has 7 children. Does not drink alcohol. Tobacco Use: Former Smoker Substance Use Type: None Alcohol Use: None Medication / Allergies Home Medications: Home Medications Medication Instructions Recorded Confirmed Type Aspirin [Aspirin EC] 81 mg ORAL QD 30 Days 05/15/12 01/24/17 Clinic Glucosa Aggarwal 2Kcl/Chondroitin Aggarwal 1 each PO QD 30 Days 05/15/12 01/24/17 Clinic [Glucosamine Chondroitin Caplet] Cetirizine HCl [Zyrtec] 1 tab PO QD PRN #90 tab 09/07/14 01/24/17 Clinic Cholecalciferol (Vitamin D3) 1 cap PO QD #30 cap 04/30/15 01/24/17 Clinic [Vitamin D3] Albuterol Sulfate [Proair Hfa] 1 - 2 puff INH Q4-6H #1 inhaler 10/21/15 Clinic Nitroglycerin 1 tab SL PRN #30 tab 11/05/15 01/24/17 Clinic Warfarin Sodium [Coumadin] 2.5 mg PO QD #90 tab 11/29/15 01/24/17 Clinic Potassium Gluconate [Potassium] 99 mg PO BID 06/21/16 01/24/17 History Digoxin [Lanoxin] 1 tab PO QD #30 tab 07/25/16 01/24/17 Clinic Hydrocodone/Acetaminophen [Atco 1 tab PO Q6H PRN 08/02/16 01/24/17 History 5-325 Tablet] Furosemide [Lasix] 1 tab PO QOD #30 tab 08/08/16 01/24/17 Clinic Omeprazole 1 cap PO QD #90 cap 08/14/16 01/24/17 Clinic Nitroglycerin 1 cap PO Q12H #60 cap 10/11/16 01/24/17 Clinic Ranolazine [Ranexa] 1 tab PO BID #180 tab 11/02/16 01/24/17 Clinic Levothyroxine Sodium 1 tab PO QD #14 tab 12/18/16 01/24/17 Clinic Fluticasone Nasal [place] 0.05% 2 sprays FOX DAILY PRN 01/07/17 01/24/17 History [Flonase Nasal [place] 0.05%] LORazepam Tab [Ativan Tab] 1 mg PO Q4H PRN PRN 01/07/17 01/24/17 History Metoprolol Succinate 25 mg PO DAILY 01/07/17 01/24/17 History Ondansetron HCl 8 mg PO Q8H PRN PRN 01/07/17 01/24/17 History Prochlorperazine Maleate 10 mg PO Q6H PRN PRN 01/07/17 01/24/17 History Allergies/Adverse Reactions: Allergies Allergy/AdvReac Type Severity Reaction Status Date / Time Penicillins Allergy Severe anaphylaxsi Verified 01/24/17 17:40 s venom-wasp Allergy Severe RASH Verified 01/24/17 17:40 Review of Systems - Review of Systems ROS Unobtainable: Due to Condition (History and review systems were very difficult to obtain the patient due to his somewhat tepid condition with fever and general malaise.) - Constitutional Constitutional: REPORTS: Weight Loss, Fever/Chills, Malaise, Weakness - Cardiovascular Cardiovascular: DENIES: Negative System Review, Chest Pain, Edema, Syncope, Palpitations, Orthopnea, Paroxysmal Nocturnal Dyspnea, Other, See HPI - Gastrointestinal Gastrointestinal / Abdominal: REPORTS: Diarrhea (Loose stool described by caregiver. Patient got 2 doses of Imodium. Some distention as the day has gone on.) - Genitourinary Genitourinary: REPORTS: Other (Denies symptoms) - Musculoskeletal Musculoskeletal: REPORTS: Neck Pain (Describes as chronic.) - Neurological Neurologic: REPORTS: Headache (Which resolved here tonight) Exam - Vitals Vital Signs: Vital Signs Temperature 98.1 F Temperature Source Oral Pulse Rate [Pulse Oximeter 111 Right] Pulse Rate 102 Respiratory Rate 18 Blood Pressure [Left Arm] 119/69 Blood Pressure 92/52 Pulse Ox 96 Oxygen Delivery Method Room Air Height 5 ft 9 in Weight 190 lb - General General Appearance: POSITIVE: No Acute Distress, Cooperative Additional General Exam Details: Generally, the patient appears ill but not septic or toxic - Head Head Exam: POSITIVE: Normal Inspection, Normocephalic, Atraumatic - Eye Eye Exam: POSITIVE: No Scleral Icterus - ENT ENT Exam: POSITIVE: Mucous Membranes Dry - Neck Neck Exam: POSITIVE: Normal Inspection, No Tenderness, No Thyromegaly - Respiratory Respiratory Exam: POSITIVE: Breathing Non Labored, Decreased Breath Sounds ( Particularly in the right base) - Cardiovascular Cardiovascular Exam: POSITIVE: RRR, No Murmur, No Clicks, No Gallops, No Rubs, No JVD - GI/Abdominal GI/Abdominal Exam: POSITIVE: Normal Bowel Sounds, Non Tender, Soft, Hypoactive Bowel Sounds Additional GI/Abdominal Exam Details: Tympanic to percussion and palpation - Rectal Rectal Exam: POSITIVE: Deferred - External Exam: POSITIVE: Deferred Exam: POSITIVE: Deferred - Extremities Extremities Exam: POSITIVE: No Clubbing Present, No Edema Present, No Cyanosis Present - Back Back Exam: POSITIVE: Normal Inspection, No CVA Tenderness - Neurological Neurological Exam: POSITIVE: Alert, Oriented x 3, No Facial Droop, Speech Intact / Clear, Moves All Extremities Equally - Psychiatric Psychiatric Exam: POSITIVE: Normal Affect, Normal Mood - Integumentary Additional Integumentary Exam Details: Pale - Central Line Examination Central Line Present on Admission: Yes Central Line Type: Med-Port Central Line Location: Subclavian (R) Central Line Site Observations: POSITIVE: Asymptomatic, Intact, Patent Results - Labs CBC and BMP: 01/24/17 18:25 01/24/17 18:25 Labs - Last 24 Hours: Laboratory Results 01/24/17 Range/Units 18:25 WBC 2.59 L (4.8-10.8) 10^3/uL RBC 3.88 L (4.70-6.10) 10^6/uL Hgb 9.4 L (14.0-18.0) g/dL Hct 29.4 L (42.0-52.0) % MCV 75.8 L (80-90) FL MCH 24.2 L (27-31) PG MCHC 32.0 L (33-37) g/dL RDW Std Deviation 73.9 H (39-50) fL RDW Coeff of Shivam 27.8 H (11.5-14.5) % Plt Count 240 (140-350) 10*3/uL MPV 9.1 (7.4-12.2) FL Immature Gran % (Auto) 0.4 (0-5) % Neut % (Auto) 64.5 (50-80) % Lymph % (Auto) 22.0 (10-50) % [place] % (Auto) 12.7 (5-15) % Eos % (Auto) 0 (0-8) % Baso % (Auto) 0.4 (0-1) % Immature Gran # (Auto) 0.01 10*3/UL Neut # (Auto) 1.67 10*3/UL Lymph # (Auto) 0.57 10*3/uL [place] # (Auto) 0.33 (0.3-0.8) 10*3/UL Eos # (Auto) 0 10*3/UL Baso # (Auto) 0.01 10*3/UL WBC Morphology Comment See comments (NORM) Plt Morphology Comment Normal morphology (NORM) RBC Morph Comment See comments (NORM) PT 16.1 H (9.7-11.4) secs INR 1.51 (0.00-5.90) N/A Sodium 130 L (135-145) meq/L Potassium 4.3 (3.8-5.2) meq/L Chloride 93 L (98-112) meq/L Carbon Dioxide 27 (23-33) meq/L Anion Gap 10 (5-20) BUN 15 (7-22) mg/dL Creatinine 0.9 (0.70-1.50) mg/dL Estimated GFR (>60 ml/min/1.73m(2)) BUN/Creatinine Ratio 16.66 (6-20) Glucose 164 H (78-110) mg/dL Calculated Osmolality 274.0 (267-292) mOsm/kg Lactic Acid 2.3 H (0.70-2.10) MMOL/L Calcium 8.5 L (8.7-10.7) mg/dL Magnesium 1.2 L (1.6-2.4) mg/dL Total Bilirubin 1.1 (0.3-1.2) mg/dL AST 14 L (21-57) IU/L ALT 24 (21-72) IU/L Alkaline Phosphatase 111 (38-126) IU/L Total Creatine Kinase < 20 L (55-170) IU/L Troponin I 0.019 (< 0.040) ng/mL C-Reactive Protein 7.8 H (0.0-0.9) mg/dL Total Protein 6.0 L (6.1-8.0) g/dL Albumin 3.1 L (3.5-4.8) g/dL Globulin 2.9 (2.50-4.10) g/dL Albumin/Globulin Ratio 1.00 L (1.3-2.0) mg/g Digoxin < 0.4 L (0.8-2.0) ng/mL - EKG Data -: EKG Interpreted by Me Rate: Normal EKG Shows Normal: Sinus Rhythm - EKG Data EKG Interpretation: Other (Some of the beats could be junctional.) - Imaging Status: Image Reviewed by Me (Chest x-ray significant for right-sided pleural effusion. Senescent changes of prior CABG. Port and appears to be in the correct location. Chest CT scan, on my view, shows right-sided pleural effusion with a right sided mass in the lower lung, but this appearance has not changed appreciably since October 2016.) Assessment and Plan - Patient Problems (1) Febrile neutropenia Current Visit: Yes Status: Acute (2) Colon cancer Current Visit: No Status: Acute Qualifiers: Colon location: unspecified part of colon Qualified Description: Malignant neoplasm of colon, unspecified part of colon Qualifier Code(s): (C18.9) Malignant neoplasm of colon, unspecified (3) Chronic atrial fibrillation Current Visit: Yes Status: Acute (4) Hypomagnesemia Current Visit: Yes Status: Acute (5) Hyperlipidemia Current Visit: Yes Status: Chronic Qualifiers: Hyperlipidemia type: unspecified Qualified Description: Hyperlipidemia , unspecified hyperlipidemia type Qualifier Code(s): (E78.5) Hyperlipidemia, unspecified (6) Hypothyroidism Current Visit: Yes Status: Chronic Qualifiers: Hypothyroidism type: acquired Qualified Description: Acquired hypothyroidism Qualifier Code(s): (E03.9) Hypothyroidism, unspecified - Assessment / Plan Additional Assessment/Plan Details: The patient is quite ill with what appears to be febrile neutropenia. Luckily has absolute neutrophil count greater than 1500. It is difficult to discern if this is infection versus chemotherapy related issues. I will screen him for MRSA colonization. Treat empirically at this time with Levaquin and vancomycin. Follow blood cultures. If positive, the port would need to come out as a potential source of infection although on exam it looks okay. With the loose stools, C. difficile colitis or diarrhea could be an issue. Given the mild distention on exam and tympany and hypoactive bowel sounds, I think it would be reasonable to add a KUB tomorrow to look at the abdomen. No evidence of obstruction on CT scan tonight. IV fluids of be administered. Patient's blood pressures are somewhat down, but still about 90 systolic. If he develops overt sepsis, may need to consider transfer. If no etiology is found to 48 hours, may need to have a clean go through course of antibiotics. I do not think the effusion is the source. It has not changed in appearance and has associated mass, but we'll try to get records from [facility] regarding the workup of this effusion. Overall prognosis is extremely guarded. He could of this issue above regardless of therapy. I tried to convey that to the patient and his caregiver as best as possible. He wants to stay here. He states to me that he is a DO NOT RESUSCITATE. I would agree with that as it is extremely unlikely I would be able to save his life with CPR. Check labs in morning. I discussed the plan with the patient and his caregiver and they both agreed with the plan.
[2017-01-24] MEDS ORDERED: Vancomycin-PHA to Dose IV PRN (22:48)
[2017-01-24] MEDS: Sodium Chloride 0.9% 1,000 ML PRIMARY IV SCH (23:45)
[2017-01-24] MEDS: NITROGLYCERIN 6.5 MG PO SCH (23:46)
[2017-01-24] MEDS: DIGOXIN 125 MCG TABLET PO SCH (23:46)
[2017-01-25] MEDS ORDERED: LEVOTHYROXINE 50 MCG TABLET PO SCH (05:30)
[2017-01-25 05:45] LABS: BUN/CREATININE RATIO 16.25 (6-20); CALCIUM 8.2 mg/dL (8.7-10.7); SERUM ALBUMIN 2.8 g/dL (3.5-4.8)
[2017-01-25 05:50] LABS: HEMATOCRIT 28.4 % (42.0-52.0); HEMOGLOBIN 8.9 g/dL (14.0-18.0); MEAN CORPUSCULAR HEMOGLOBIN 24.1 PG (27-31); MEAN CORPUSCULAR HGB CONC 31.3 g/dL (33-37); RED BLOOD COUNT 3.69 10^6/uL (4.70-6.10)
[2017-01-25 06:41] LABS: PLATELET MORPHOLOGY COMMENT NORMAL MORPHOLOGY (NORM); WBC MORPHOLOGY COMMENT NORMAL MORPHOLOGY (NORM)
[2017-01-25 06:43] LABS: RBC MORPHOLOGY COMMENT SEE COMMENTS (NORM)
[2017-01-25 06:45] LABS: BAND NEUTROPHILS % 31 % (0-10); BASOPHILS % (MANUAL) 0 % (0-1); EOSINOPHILS % (MANUAL) 0 % (0-8); LYMPHOCYTES % (MANUAL) 16 % (10-50); MONOCYTES % (MANUAL) 4 % (0-12); NEUTROPHILS % (MANUAL) 49 % (50-80)
[2017-01-25] MEDS ORDERED: OMEPRAZOLE 20 MG CAPSULE PO SCH (07:00)
[2017-01-25] MEDS: DIGOXIN 125 MCG TABLET PO SCH (08:48)
[2017-01-25] MEDS ORDERED: METOPROLOL SUCCINATE 25 MG SR 24H TABLET PO SCH (09:00)
[2017-01-25] MEDS ORDERED: ENOXAPARIN SODIUM 40 MG/0.4 ML SYRINGE SUBCUT SCH (09:00)
[2017-01-25] MEDS ORDERED: ASPIRIN EC 81 MG TABLET PO SCH (09:00)
[2017-01-25] MEDS ORDERED: GUAIFENESIN 600 MG TABLET PO SCH (09:00)
[2017-01-25] MEDS ORDERED: CHOLECALCIFEROL 1000 IU TABLET PO SCH (09:00)
[2017-01-25] MEDS ORDERED: RANOLAZINE 500 MG PO SCH (09:00)
[2017-01-25] MEDS ORDERED: Levofloxacin 750mg (Premix) 750 MG in Dextrose 1 BAG IV SCH (09:00)
--- NOTE | 2017-01-25 09:46 | PDOC(PROG) ---
Date and Time of Service: 01/25/2017 9:43 AM Interval History: Subjective Patient came into the hospital because of fever, fatigue started yesterday. The fatigue was going on more for few days but the fever started yesterday. Has no cramping abdominal pain. Been having on and off loose stool. He said he had a second cycle of chemotherapy on January 16. He is due for another one coming Sunday. He feels better today compared to yesterday. He is stronger. Objective : Data - Labs CBC and BMP: 01/25/17 04:15 01/25/17 04:15 Labs - Last 24 Hours: Laboratory Results 01/25/17 Range/Units 04:15 WBC 2.82 L (4.8-10.8) 10^3/uL RBC 3.69 L (4.70-6.10) 10^6/uL Hgb 8.9 L (14.0-18.0) g/dL Hct 28.4 L (42.0-52.0) % MCV 77.0 L (80-90) FL MCH 24.1 L (27-31) PG MCHC 31.3 L (33-37) g/dL RDW Std Deviation 75.3 H (39-50) fL RDW Coeff of Shivam 28.2 H (11.5-14.5) % Plt Count 235 (140-350) 10*3/uL MPV 10.0 (7.4-12.2) FL Neutrophils % (Manual) 49 L (50-80) % Band Neutrophils % 31 H (0-10) % Lymphocytes % (Manual) 16 (10-50) % Monocytes % (Manual) 4 (0-12) % Eosinophils % (Manual) 0 (0-8) % Basophils % (Manual) 0 (0-1) % Metamyelocytes % Not Reportable Myelocytes % Not Reportable Promyelocytes % Not Reportable Blast Cells Not Reportable WBC Morphology Comment Normal morphology (NORM) Plt Morphology Comment Normal morphology (NORM) RBC Morph Comment See comments (NORM) PT 15.7 H (9.7-11.4) secs INR 1.48 (0.00-5.90) N/A Sodium 131 L (135-145) meq/L Potassium 4.2 (3.8-5.2) meq/L Chloride 97 L (98-112) meq/L Carbon Dioxide 25 (23-33) meq/L Anion Gap 9 (5-20) BUN 13 (7-22) mg/dL Creatinine 0.8 (0.70-1.50) mg/dL Estimated GFR (>60 ml/min/1.73m(2)) BUN/Creatinine Ratio 16.25 (6-20) Glucose 117 H (78-110) mg/dL Calculated Osmolality 272.0 (267-292) mOsm/kg Lactic Acid 2.6 H (0.70-2.10) MMOL/L Calcium 8.2 L (8.7-10.7) mg/dL Total Bilirubin 1.1 (0.3-1.2) mg/dL AST 16 L (21-57) IU/L ALT 25 (21-72) IU/L Alkaline Phosphatase 93 (38-126) IU/L Total Protein 5.4 L (6.1-8.0) g/dL Albumin 2.8 L (3.5-4.8) g/dL Globulin 2.6 (2.50-4.10) g/dL Albumin/Globulin Ratio 1.00 L (1.3-2.0) mg/g Objective : Exam - General General Appearance: Cooperative Additional General Exam Details: Looks tired - Head Head Exam: Normal Inspection - Eye Eye Exam: Normal Appearance - ENT ENT Exam: Normal Exam - Neck Neck Exam: Normal Inspection - Respiratory Additional Respiratory Exam Details: Decreased breath sound on the right lower lung base - Cardiovascular Cardiovascular Exam: RRR - GI/Abdominal GI/Abdominal Exam: Normal Bowel Sounds, Non Tender, Soft Additional GI/Abdominal Exam Details: Some mild distention present and no tenderness. - Rectal Rectal Exam: Deferred - External Exam: Deferred - Extremities Extremities Exam: Normal Inspection - Back Back Exam: Normal Inspection - Neurological Neurological Exam: Alert, Oriented x 3, CN II-XII Intact, Speech Intact / Clear - Psychiatric Psychiatric Exam: Normal Affect - Integumentary Integumentary Exam: Normal Color Assessment and Plan - Patient Problems (1) Febrile neutropenia Current Visit: Yes Status: Acute Comment: Continue current antibiotics until we have culture result. I think we' ll start cutting back on his IV fluid. (2) Hypomagnesemia Current Visit: Yes Status: Acute Comment: He got magnesium yesterday, will recheck his magnesium today puts him on oral magnesium. (3) Chronic atrial fibrillation Current Visit: Yes Status: Acute Comment: Same medications
[2017-01-25] MEDS: Sodium Chloride 0.9% 1,000 ML PRIMARY IV SCH ×5 (10:16→22:48)
[2017-01-25] MEDS: NITROGLYCERIN 6.5 MG PO SCH (10:17)
[2017-01-25] MEDS ORDERED: Sodium Chloride 0.9% 500 ML IV ONE (11:32)
[2017-01-25] MEDS ORDERED: Meropenem Inj 1 GM in Sodium Chloride 0.9% 100 ML IV SCH (11:45)
[2017-01-25] MEDS ORDERED: Sodium Chloride 0.9% 250 ML IV ONE ×2 (12:39→13:17)
[2017-01-25] MEDS ORDERED: LORazepam 1 MG TABLET PO PRN (13:17)
[2017-01-25] MEDS ORDERED: ONDANSETRON 4 MG/2 ML VIAL IVP PRN (13:17)
[2017-01-25] MEDS ORDERED: NITROGLYCERIN 0.4 MG SL TAB (BOTTLE OF 3) SL PRN (13:17)
[2017-01-25] MEDS ORDERED: LIDOCAINE W/ SODIUM BICARB 0.5 ML SYR SUBD PRN (13:17)
[2017-01-25] MEDS ORDERED: Prochlorperazine Tab 10 MG TAB PO PRN (13:17)
[2017-01-25] MEDS ORDERED: HYDROcodone-APAP 5 MG -325 MG TABLET PO PRN (13:17)
[2017-01-25] MEDS ORDERED: ACETAMINOPHEN 325 MG TABLET PO PRN (13:17)
[2017-01-25] MEDS ORDERED: NORMAL SALINE 10 ML SYRINGE FLUSH IVP PRN (13:17)
[2017-01-25] MEDS ORDERED: ALBUTEROL SULFATE 8.5 GM HFA INHALER INH PRN (13:17)
[2017-01-25] MEDS ORDERED: Norepinephrine Drip 8 MG in D5W 250 ML IV SCH (13:30)
[2017-01-25 14:56] LABS: BILIRUBIN,URINE NEGATIVE (NEG); CLARITY,URINE Slightly Cloudy (CLEAR); COLOR,URINE YELLOW; GLUCOSE, URINE (UA) NEGATIVE (NEG); NITRATE,URINE NEGATIVE (NEG); OCCULT BLOOD,URINE NEGATIVE (NEG); PH,URINE 5.5 (5.0-8.5); PROTEIN,URINE 30 mg/dl (NEG); UROBILINOGEN,URINE 0.2 EU/dL (0.2)
[2017-01-25 14:57] LABS: URINE SAMPLE TYPE VOIDED SPECIMEN
[2017-01-25 15:01] LABS: WBC,URINE 25-50
[2017-01-25 15:52] LABS: BACTERIA,URINE RARE; SQUAMOUS EPITHELIAL CELL,UR RARE
[2017-01-25] MEDS: Meropenem Inj 1 GM in Sodium Chloride 0.9% 100 ML IV SCH (20:10)
[2017-01-25] MEDS ORDERED: Warfarin Tab 2.5 MG TAB PO SCH ×2 (21:00)
[2017-01-25] MEDS ORDERED: Warfarin 5 MG TAB PO SCH (21:00)
[2017-01-26] MEDS: Meropenem Inj 1 GM in Sodium Chloride 0.9% 100 ML IV SCH (04:03)
[2017-01-26] MEDS ORDERED: LEVOTHYROXINE 50 MCG TABLET PO SCH (05:30)
[2017-01-26 06:23] LABS: HEMATOCRIT 23.6 % (42.0-52.0); HEMOGLOBIN 7.2 g/dL (14.0-18.0); MEAN CORPUSCULAR HEMOGLOBIN 23.8 PG (27-31); MEAN CORPUSCULAR HGB CONC 30.5 g/dL (33-37); MEAN CORPUSCULAR VOLUME 78.1 FL (80-90); MEAN PLATELET VOLUME 9.9 FL (7.4-12.2); RED BLOOD COUNT 3.02 10^6/uL (4.70-6.10)
[2017-01-26 06:53] LABS: BLOOD UREA NITROGEN 6 mg/dL (7-22); CALCIUM 7.7 mg/dL (8.7-10.7); SERUM ALBUMIN 2.2 g/dL (3.5-4.8)
[2017-01-26 06:58] LABS: MAGNESIUM 1.5 mg/dL (1.6-2.4)
[2017-01-26] MEDS ORDERED: OMEPRAZOLE 20 MG CAPSULE PO SCH (07:00)
[2017-01-26] MEDS ORDERED: MAGNESIUM OXIDE 400 MG TABLET PO SCH ×2 (07:00)
[2017-01-26 07:16] LABS: PLATELET MORPHOLOGY COMMENT NORMAL MORPHOLOGY (NORM); WBC MORPHOLOGY COMMENT NORMAL MORPHOLOGY (NORM)
[2017-01-26] MEDS: DIGOXIN 125 MCG TABLET PO SCH ×2 (07:19→08:42)
[2017-01-26 07:21] LABS: RBC MORPHOLOGY COMMENT SEE COMMENTS (NORM)
[2017-01-26] MEDS: Sodium Chloride 0.9% 1,000 ML PRIMARY IV SCH ×3 (07:21→08:43)
[2017-01-26 07:22] LABS: BAND NEUTROPHILS % 5 % (0-10); BASOPHILS % (MANUAL) 0 % (0-1); EOSINOPHILS % (MANUAL) 0 % (0-8); LYMPHOCYTES % (MANUAL) 20 % (10-50); MONOCYTES % (MANUAL) 4 % (0-12); NEUTROPHILS % (MANUAL) 71 % (50-80)
--- NOTE | 2017-01-26 07:22 | PDOC(PROG) ---
Date and Time of Service: 01/26/2017 7:28 AM Interval History: Subjective Patient feels a lot better than yesterday. He was sitting at the edge of the bed, he is having his breakfast. Denying complaint is no pain, no shortness of breath, no palpitation. No dizziness. Objective : Data - Labs CBC and BMP: 01/26/17 05:02 01/26/17 05:02 Labs - Last 24 Hours: Laboratory Results 01/25/17 01/25/17 01/25/17 Range/Units 04:15 14:05 14:53 WBC (4.8-10.8) 10^3/uL RBC (4.70-6.10) 10^6/uL Hgb (14.0-18.0) g/dL Hct (42.0-52.0) % MCV (80-90) FL MCH (27-31) PG MCHC (33-37) g/dL RDW Std Deviation (39-50) fL RDW Coeff of Shivam (11.5-14.5) % Plt Count (140-350) 10*3/uL MPV (7.4-12.2) FL Immature Gran % (Auto) (0-5) % Neut % (Auto) (50-80) % Lymph % (Auto) (10-50) % [place] % (Auto) (5-15) % Eos % (Auto) (0-8) % Baso % (Auto) (0-1) % Immature Gran # (Auto) 10*3/UL Neut # (Auto) 10*3/UL Lymph # (Auto) 10*3/uL [place] # (Auto) (0.3-0.8) 10*3/UL Eos # (Auto) 10*3/UL Baso # (Auto) 10*3/UL WBC Morphology Comment (NORM) Plt Morphology Comment (NORM) RBC Morph Comment (NORM) Lactic Acid 2.4 H (0.70-2.10) MMOL/L Magnesium 1.6 (1.6-2.4) mg/dL Ur Collection Type Voided specimen Urine Color Yellow Urine Clarity Slightly cloudy (CLEAR) Urine pH 5.5 (5.0-8.5) Ur Specific [place] 1.025 (1.005-1.030) Urine Protein 30 (NEG) mg/dl Urine Glucose (UA) Negative (NEG) mg/dL Urine Ketones Negative (NEG) Urine Occult Blood Negative (NEG) Urine Nitrate Negative (NEG) Urine Bilirubin Negative (NEG) Urine Urobilinogen 0.2 (0.2) EU/dL Ur Leukocyte Esterase Small (NEG) Urine RBC None (NONE) /hpf Urine WBC 25-50 (NONE) Ur Squamous Epith Cells Rare (NONE) Ur Renal Epithelial Cell None (NONE) Urine Crystals None Urine Bacteria Rare (NONE) Urine Casts None (NONE) Urine Mucus None (NONE) Urine Trichomonas None (NONE) Urine Yeast None (NONE) Ur Culture Indicated? Culture set Vancomycin Trough (5.0-10.0) ug/ml 01/26/17 01/26/17 Range/Units 00:28 05:02 WBC 2.34 L (4.8-10.8) 10^3/uL RBC 3.02 L (4.70-6.10) 10^6/uL Hgb 7.2 L (14.0-18.0) g/dL Hct 23.6 L (42.0-52.0) % MCV 78.1 L (80-90) FL MCH 23.8 L (27-31) PG MCHC 30.5 L (33-37) g/dL RDW Std Deviation 75.6 H (39-50) fL RDW Coeff of Shivam 28.2 H (11.5-14.5) % Plt Count 199 (140-350) 10*3/uL MPV 9.9 (7.4-12.2) FL Immature Gran % (Auto) 0.4 (0-5) % Neut % (Auto) 70.6 (50-80) % Lymph % (Auto) 17.5 (10-50) % [place] % (Auto) 11.5 (5-15) % Eos % (Auto) 0 (0-8) % Baso % (Auto) 0 (0-1) % Immature Gran # (Auto) 0.01 10*3/UL Neut # (Auto) 1.65 10*3/UL Lymph # (Auto) 0.41 10*3/uL [place] # (Auto) 0.27 L (0.3-0.8) 10*3/UL Eos # (Auto) 0 10*3/UL Baso # (Auto) 0 10*3/UL WBC Morphology Comment Normal morphology (NORM) Plt Morphology Comment Normal morphology (NORM) RBC Morph Comment Normal morphology (NORM) Lactic Acid (0.70-2.10) MMOL/L Magnesium (1.6-2.4) mg/dL Ur Collection Type Urine Color Urine Clarity (CLEAR) Urine pH (5.0-8.5) Ur Specific [place] (1.005-1.030) Urine Protein (NEG) mg/dl Urine Glucose (UA) (NEG) mg/dL Urine Ketones (NEG) Urine Occult Blood (NEG) Urine Nitrate (NEG) Urine Bilirubin (NEG) Urine Urobilinogen (0.2) EU/dL Ur Leukocyte Esterase (NEG) Urine RBC (NONE) /hpf Urine WBC (NONE) Ur Squamous Epith Cells (NONE) Ur Renal Epithelial Cell (NONE) Urine Crystals Urine Bacteria (NONE) Urine Casts (NONE) Urine Mucus (NONE) Urine Trichomonas (NONE) Urine Yeast (NONE) Ur Culture Indicated? Vancomycin Trough 8.56 (5.0-10.0) ug/ml Objective : Exam - General General Appearance: No Acute Distress, Cooperative - Head Head Exam: Normal Inspection - Eye Eye Exam: Normal Appearance - ENT ENT Exam: Normal Exam - Neck Neck Exam: Normal Inspection - Respiratory Additional Respiratory Exam Details: Decreased breath sound on the right side. - Cardiovascular Cardiovascular Exam: RRR, Tachycardia - GI/Abdominal GI/Abdominal Exam: Normal Bowel Sounds, Non Tender, Soft, Distended - Rectal Rectal Exam: Deferred - External Exam: Deferred - Extremities Extremities Exam: Normal Inspection - Back Back Exam: Normal Inspection - Neurological Neurological Exam: Alert, Oriented x 3, CN II-XII Intact, Moves All Extremities Equally - Psychiatric Psychiatric Exam: Normal Affect - Integumentary Integumentary Exam: Pallor Assessment and Plan - Patient Problems (1) Febrile neutropenia Current Visit: Yes Status: Acute Comment: No more fever, the blood culture so far is negative I think I'll DC the vancomycin. Yesterday as I said he dropped his blood pressure and we moved him to the ICU gave him fluid boluses and that helped to bring his blood pressure up he did not need vasodepressors. I think we'll continue with a meropenem for now. Start cutting back on his fluid. Will see whether we can stop the fluid at one point today. (2) Hypomagnesemia Current Visit: Yes Status: Acute Comment: Continue. Magnesium replacement (3) Chronic atrial fibrillation Current Visit: Yes Status: Acute Comment: Today rhythm is more regular but he is going fast will give him metoprolol continue digoxin. Will do an EKG. (4) Anemia Current Visit: Yes Status: Acute Comment: probably multifactorial, part of it probably to chemotherapy part of it secondary to the tumor and part of it from hemodilution will transfuse. (5) Abdominal distention Current Visit: Yes Status: Acute Comment: His abdomen is somewhat distended but the clinical exam it is soft bowel sounds present. He had a CT the night before and showed just dried stool and gas and he did have a bowel movement he said yesterday a good one. His magnesium is low so maybe there is an ileus. will do abdominal x-ray.
[2017-01-26 07:25] LABS: C-REACTIVE PROTEIN 18.4 mg/dL (0.0-0.9)
--- NOTE | 2017-01-26 07:32 | EKG ---
[address] [place] [address] Measurements Intervals [place] Rate: 131 P: MN: 0 QRS: 48 QRSD: 104 T: 0 QT: 262 QTc: 339 Interpretive Statements ATRIAL FLUTTER/TACHYCARDIA WITH RAPID VENTRICULAR RESPONSE MARKED ST DEPRESSION, CONSIDER SUBENDOCARDIAL INJURY [0.2+ mV ST DEPRESSION] Compared to ECG 01/24/2017 18:47:11 ST (T wave) deviation now present Junctional rhythm no longer present T-wave abnormality no longer present Electronically Signed On 01-26-17 08:57:21 MDT by Guy Wood MD [id number]
[2017-01-26] MEDS ORDERED: METOPROLOL TARTRATE 5 MG/5 ML VIAL IVP ONE (07:41)
[2017-01-26] MEDS: MORPHINE SULFATE 2 MG/1 ML IVP PRN ×2 (07:45→08:00)
[2017-01-26] MEDS ORDERED: METOPROLOL TARTRATE 5 MG/5 ML VIAL ONE (07:46)
[2017-01-26] MEDS ORDERED: MORPHINE SULFATE 2 MG/1 ML IVP PRN (08:00)
[2017-01-26] MEDS ORDERED: Sodium Chloride 0.9% 500 ML PRIMARY IV ONE (08:15)
[2017-01-26] MEDS: METOPROLOL SUCCINATE 25 MG SR 24H TABLET PO SCH ×2 (08:25→08:34)
--- NOTE | 2017-01-26 08:27 | DCSUMMARY ---
Hospitalization Summary Admit Date: 01/24/17 Discharge Date: 01/26/17 Hospital Course: Transfer diagnoses 1. Narrow QRS complex tachycardia 2. Leukopenia likely secondary to chemotherapy 3. Anemia multifactorial 4. 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 History of atrial fibrillation 6. Hypertension 7. Hypothyroidism 8. Recently diagnosed with colon cancer status post 2 cycles of chemotherapy 9. Right pleural effusion had previous thoracocentesis 10. Recent colitis 11 history of renal artery stenosis status post stenting 2007 12. History of melanoma status post excision Hospital course This is a 86 years old male with medical history significant for history of colon cancer status post 2 cycles of chemotherapy, history of coronary artery disease with previous CABG, recent admission for colitis, hypothyroidism, hyperlipidemia, recent episode of febrile neutropenia, history of atrial fibrillation who was admitted to the hospital on the as he presented to the hospital with history of not feeling well and not eating well some loose stools and fever at home, he was found to be leukopenic had a CT of the abdomen and chest there was no evidence of PE no evidence of colitis this time he was started on antibiotics treated as febrile neutropenia with Levaquin and vancomycin although his total neutrophil was like slightly more than 1500 as it was not clear whether his symptoms are due to the chemotherapy or beginning of an infection. Stool for C. difficile were ordered. I saw him the next day initially he was feeling better but then a few hours after I saw him he dropped his blood pressure to 80 systolic we gave him fluid bolus, blood pressure remained around 84 moved him to the ICU continued with fluid boluses and his blood pressure stabilized we did not need to put him on vasodepressor and he was feeling better. We did change antibiotics to meropenem and continued with vancomycin. He had a UA sent on the next day of admission as was not collected until the second day and showed 25-50 WBC. On the day of transfer initially was feeling better but then he developed narrow complex tachycardia going at a rate of 130 his blood pressure remained stable and we gave him metoprolol IV, nitroglycerin and his digoxin and also IV morphine pain subsided however his rate was still going fast. His hemoglobin came back at 7.2 ordered blood transfusion, I spoke with the track laborer Dr. Brannon and the hospitalist Dr. Mosher at [facility] [place], Dr Brannon suggested continue with the Beta guy to slow his heart rate suggested oral medications, I spoke with Dr. Mosher accepted patient for transfer spoke with patient he excepted the transfer he would be transferred at one point today. They don't have a bed yet but meanwhile I think will give him blood and give the oral metoprolol. Laboratory Results 01/24/17 01/25/17 01/25/17 Range/Units 18:25 04:15 14:05 WBC 2.59 L 2.82 L (4.8-10.8) 10^3/uL RBC 3.88 L 3.69 L (4.70-6.10) 10^6/uL Hgb 9.4 L 8.9 L (14.0-18.0) g/dL Hct 29.4 L 28.4 L (42.0-52.0) % MCV 75.8 L 77.0 L (80-90) FL MCH 24.2 L 24.1 L (27-31) PG MCHC 32.0 L 31.3 L (33-37) g/dL RDW Std Deviation 73.9 H 75.3 H (39-50) fL RDW Coeff of Shivam 27.8 H 28.2 H (11.5-14.5) % Plt Count 240 235 (140-350) 10*3/uL MPV 9.1 10.0 (7.4-12.2) FL Immature Gran % (Auto) 0.4 (0-5) % Neut % (Auto) 64.5 (50-80) % Lymph % (Auto) 22.0 (10-50) % [place] % (Auto) 12.7 (5-15) % Eos % (Auto) 0 (0-8) % Baso % (Auto) 0.4 (0-1) % Immature Gran # (Auto) 0.01 10*3/UL Neut # (Auto) 1.67 10*3/UL Lymph # (Auto) 0.57 10*3/uL [place] # (Auto) 0.33 (0.3-0.8) 10*3/UL Eos # (Auto) 0 10*3/UL Baso # (Auto) 0.01 10*3/UL Neutrophils % (Manual) 49 L (50-80) % Band Neutrophils % 31 H (0-10) % Lymphocytes % (Manual) 16 (10-50) % Monocytes % (Manual) 4 (0-12) % Eosinophils % (Manual) 0 (0-8) % Basophils % (Manual) 0 (0-1) % Metamyelocytes % Not Reportable Myelocytes % Not Reportable Promyelocytes % Not Reportable Blast Cells Not Reportable WBC Morphology Comment See comments Normal morphology (NORM) Plt Morphology Comment Normal morphology Normal morphology (NORM) RBC Morph Comment See comments See comments (NORM) PT 16.1 H 15.7 H (9.7-11.4) secs INR 1.51 1.48 (0.00-5.90) N/A Sodium 130 L 131 L (135-145) meq/L Potassium 4.3 4.2 (3.8-5.2) meq/L Chloride 93 L 97 L (98-112) meq/L Carbon Dioxide 27 25 (23-33) meq/L Anion Gap 10 9 (5-20) BUN 15 13 (7-22) mg/dL Creatinine 0.9 0.8 (0.70-1.50) mg/dL Estimated GFR (>60 ml/min/1.73m(2)) BUN/Creatinine Ratio 16.66 16.25 (6-20) Glucose 164 H 117 H (78-110) mg/dL Calculated Osmolality 274.0 272.0 (267-292) mOsm/kg Lactic Acid 2.3 H 2.6 H 2.4 H (0.70-2.10) MMOL/L Calcium 8.5 L 8.2 L (8.7-10.7) mg/dL Magnesium 1.2 L 1.6 (1.6-2.4) mg/dL Total Bilirubin 1.1 1.1 (0.3-1.2) mg/dL AST 14 L 16 L (21-57) IU/L ALT 24 25 (21-72) IU/L Alkaline Phosphatase 111 93 (38-126) IU/L Total Creatine Kinase < 20 L (55-170) IU/L Troponin I 0.019 (< 0.040) ng/mL C-Reactive Protein 7.8 H (0.0-0.9) mg/dL Total Protein 6.0 L 5.4 L (6.1-8.0) g/dL Albumin 3.1 L 2.8 L (3.5-4.8) g/dL Globulin 2.9 2.6 (2.50-4.10) g/dL Albumin/Globulin Ratio 1.00 L 1.00 L (1.3-2.0) mg/g Ur Collection Type Urine Color Urine Clarity (CLEAR) Urine pH (5.0-8.5) Ur Specific [place] (1.005-1.030) Urine Protein (NEG) mg/dl Urine Glucose (UA) (NEG) mg/dL Urine Ketones (NEG) Urine Occult Blood (NEG) Urine Nitrate (NEG) Urine Bilirubin (NEG) Urine Urobilinogen (0.2) EU/dL Ur Leukocyte Esterase (NEG) Urine RBC (NONE) /hpf Urine WBC (NONE) Ur Squamous Epith Cells (NONE) Ur Renal Epithelial Cell (NONE) Urine Crystals Urine Bacteria (NONE) Urine Casts (NONE) Urine Mucus (NONE) Urine Trichomonas (NONE) Urine Yeast (NONE) Ur Culture Indicated? Vancomycin Trough (5.0-10.0) ug/ml Digoxin < 0.4 L (0.8-2.0) ng/mL 01/25/17 01/26/17 01/26/17 Range/Units 14:53 00:28 05:02 WBC 2.34 L (4.8-10.8) 10^3/uL RBC 3.02 L (4.70-6.10) 10^6/uL Hgb 7.2 L (14.0-18.0) g/dL Hct 23.6 L (42.0-52.0) % MCV 78.1 L (80-90) FL MCH 23.8 L (27-31) PG MCHC 30.5 L (33-37) g/dL RDW Std Deviation 75.6 H (39-50) fL RDW Coeff of Shivam 28.2 H (11.5-14.5) % Plt Count 199 (140-350) 10*3/uL MPV 9.9 (7.4-12.2) FL Immature Gran % (Auto) Back Panel Padder (0-5) % Neut % (Auto) Back Panel Padder (50-80) % Lymph % (Auto) Back Panel Padder (10-50) % [place] % (Auto) Back Panel Padder (5-15) % Eos % (Auto) Back Panel Padder (0-8) % Baso % (Auto) Back Panel Padder (0-1) % Immature Gran # (Auto) Back Panel Padder 10*3/UL Neut # (Auto) Back Panel Padder 10*3/UL Lymph # (Auto) Back Panel Padder 10*3/uL [place] # (Auto) Back Panel Padder (0.3-0.8) 10*3/UL Eos # (Auto) Back Panel Padder 10*3/UL Baso # (Auto) Back Panel Padder 10*3/UL Neutrophils % (Manual) 71 (50-80) % Band Neutrophils % 5 (0-10) % Lymphocytes % (Manual) 20 (10-50) % Monocytes % (Manual) 4 (0-12) % Eosinophils % (Manual) 0 (0-8) % Basophils % (Manual) 0 (0-1) % Metamyelocytes % Not Reportable Myelocytes % Not Reportable Promyelocytes % Not Reportable Blast Cells Not Reportable WBC Morphology Comment Normal morphology (NORM) Plt Morphology Comment Normal morphology (NORM) RBC Morph Comment See comments (NORM) PT 23.4 H (9.7-11.4) secs INR 2.19 (0.00-5.90) N/A Sodium 133 L (135-145) meq/L Potassium 3.6 L (3.8-5.2) meq/L Chloride 103 (98-112) meq/L Carbon Dioxide 24 (23-33) meq/L Anion Gap 6 (5-20) BUN 6 L (7-22) mg/dL Creatinine 0.6 L (0.70-1.50) mg/dL Estimated GFR Back Panel Padder (>60 ml/min/1.73m(2)) BUN/Creatinine Ratio 10.00 (6-20) Glucose 102 (78-110) mg/dL Calculated Osmolality 273.0 (267-292) mOsm/kg Lactic Acid (0.70-2.10) MMOL/L Calcium 7.7 L (8.7-10.7) mg/dL Magnesium 1.5 L (1.6-2.4) mg/dL Total Bilirubin 0.6 (0.3-1.2) mg/dL AST 15 L (21-57) IU/L ALT 21 (21-72) IU/L Alkaline Phosphatase 79 (38-126) IU/L Total Creatine Kinase (55-170) IU/L Troponin I (< 0.040) ng/mL C-Reactive Protein 18.4 H (0.0-0.9) mg/dL Total Protein 4.6 L (6.1-8.0) g/dL Albumin 2.2 L (3.5-4.8) g/dL Globulin 2.4 L (2.50-4.10) g/dL Albumin/Globulin Ratio 0.90 L (1.3-2.0) mg/g Ur Collection Type Voided specimen Urine Color Yellow Urine Clarity Slightly cloudy (CLEAR) Urine pH 5.5 (5.0-8.5) Ur Specific [place] 1.025 (1.005-1.030) Urine Protein 30 (NEG) mg/dl Urine Glucose (UA) Negative (NEG) mg/dL Urine Ketones Negative (NEG) Urine Occult Blood Negative (NEG) Urine Nitrate Negative (NEG) Urine Bilirubin Negative (NEG) Urine Urobilinogen 0.2 (0.2) EU/dL Ur Leukocyte Esterase Small (NEG) Urine RBC None (NONE) /hpf Urine WBC 25-50 (NONE) Ur Squamous Epith Cells Rare (NONE) Ur Renal Epithelial Cell None (NONE) Urine Crystals None Urine Bacteria Rare (NONE) Urine Casts None (NONE) Urine Mucus None (NONE) Urine Trichomonas None (NONE) Urine Yeast None (NONE) Ur Culture Indicated? Culture set Vancomycin Trough 8.56 (5.0-10.0) ug/ml Digoxin (0.8-2.0) ng/mL Transfer instruction Diet regular Activity addressed Medications Active Medications Acetaminophen (Tylenol) 650 mg PO Q6H PRN PRN Reason: Pain or Fever Acetaminophen/Hydrocodone Bitart ([place] 5/325 Tab) 1 tab PO Q6H PRN PRN Reason: Pain Albuterol Sulfate (Proair Hfa Inhaler) 2 puff INH RTQ6H PRN PRN Reason: SBO, cough Aspirin (Aspirin Ec) 81 mg PO DAILY [facility] Last Admin: 01/26/17 08:37 Dose: 81 mg Cholecalciferol (Vitamin D3) 2,000 iu PO DAILY [facility] Last Admin: 01/26/17 08:37 Dose: 2,000 iu Digoxin (Lanoxin) 125 mcg PO DAILY [facility] Last Admin: 01/26/17 07:19 Dose: 125 mcg Sodium Chloride (Normal Saline) 1,000 mls @ 125 mls/hr PRIMARY IV .Q8H [facility] Last Admin: 01/26/17 07:22 Dose: Not Given Meropenem 1 gm/ Sodium (Chloride) 100 mls @ 200 mls/hr IV Q8H [facility] Last Admin: 01/26/17 04:03 Dose: 200 mls/hr Sodium Chloride (Normal Saline 0.9%) 25 mls @ 200 mls/hr IV .Post Infusion PRN PRN Reason: No Primary IV for Flush ONLY Sodium Chloride (Normal Saline) 500 mls @ 50 mls/hr PRIMARY IV .Q10H ONE Stop: 01/26/17 18:14 Levothyroxine Sodium (Synthroid) 50 mcg PO DAILY@0530 [facility] Last Admin: 01/26/17 04:56 Dose: 50 mcg Lidocaine HCl (Lidocaine Buffered Inj) 0.5 ml SUBD ONCE PRN PRN Reason: IV Starts Lorazepam (Ativan Tab) 1 mg PO Q4H PRN PRN Reason: NAUSEA Magnesium Oxide (Mag-Ox) 400 mg PO C BK [facility] Last Admin: 01/26/17 07:18 Dose: 400 mg Metoprolol Succinate (Toprol Xl) 25 mg PO DAILY [facility] Last Admin: 01/26/17 08:34 Dose: 25 mg Morphine Sulfate (Morphine Inj) 1 mg IVP Q1H PRN PRN Reason: Chest Pain Last Admin: 01/26/17 08:00 Dose: 1 mg Nitroglycerin (Nitrostat Sl 0.4mg Tab) 1 tab SL Q5M PRN PRN Reason: Chest Pain Last Admin: 01/26/17 07:56 Dose: 1 tab Omeprazole (Prilosec) 20 mg PO AC BK [facility] Last Admin: 01/26/17 07:18 Dose: 20 mg Ondansetron HCl (Zofran Inj) 4 mg IVP Q4H PRN PRN Reason: NAUSEA / VOMITING Potassium Chloride (Klor-Con) 20 meq PO DAILY [facility] Last Admin: 01/26/17 08:37 Dose: 20 meq Prochlorperazine Maleate (Compazine) 10 mg PO Q6H PRN PRN Reason: NAUSEA Sodium Chloride (Saline Flush) 5 - 20 ml IVP BID PRN PRN Reason: Flush Warfarin Sodium (Coumadin) 2.5 mg PO BEDTIME [facility] Last Admin: 01/25/17 20:09 Dose: 2.5 mg Follow-up per [facility] [place] post discharge Exam - Vitals Vital Signs: Vital Signs Temperature 97.7 F Temperature Source Oral Pulse Rate [Apical] 94 Pulse Rate [Telemetry] 129 Pulse Rate [Pulse Oximeter 99 Right] Pulse Rate 131 Respiratory Rate 20 Blood Pressure [Right Arm] 116/56 Blood Pressure [Left Arm] 122/55 Blood Pressure 92/52 Pulse Ox 97 Oxygen Flow Rate 3 Oxygen Delivery Method Nasal Cannula Height 5 ft 9 in Weight 207 lb Patient Problems - Patient Problem List (1) Febrile neutropenia Status: Acute (2) Hypomagnesemia Status: Acute (3) Chronic atrial fibrillation Status: Acute (4) Anemia Status: Acute (5) Abdominal distention Status: Acute
[2017-01-26] MEDS ORDERED: ENOXAPARIN SODIUM 40 MG/0.4 ML SYRINGE SUBCUT SCH (09:00)
[2017-01-26] MEDS ORDERED: ASPIRIN EC 81 MG TABLET PO SCH (09:00)
[2017-01-26] MEDS ORDERED: POTASSIUM CHLORIDE 20 MEQ TAB PO SCH (09:00)
[2017-01-26] MEDS ORDERED: CHOLECALCIFEROL 1000 IU TABLET PO SCH (09:00)
[2017-01-26] MEDS ORDERED: METOPROLOL SUCCINATE 25 MG SR 24H TABLET PO SCH (09:00)
[2017-01-26 10:11] VITALS: RESP 18
[2017-01-26 10:23] VITALS: TEMP 98.9
== END 2017-01-26 10:41 | disposition short-term general hospital (02) | DRG 309 ==
LOC: ER 17:34 → MED/SURG 21:25 → ICU 01-25 12:40
PROVIDERS: ADMIT Family Medicine; ATTEND Internal Medicine
DX: E86.0 Dehydration (principal); I48.2 Chronic atrial fibrillation; E83.42 Hypomagnesemia; E87.1 Hypo-osmolality and hyponatremia; R00.0 Tachycardia, unspecified; C18.9 Malignant neoplasm of colon, unspecified; D72.819 Decreased white blood cell count, unspecified; D64.9 Anemia, unspecified; I25.10 Atherosclerotic heart disease of native coronary artery without angina pectoris; I48.91 Unspecified atrial fibrillation; I10 Essential (primary) hypertension; E03.9 Hypothyroidism, unspecified; K52.9 Noninfective gastroenteritis and colitis, unspecified; R50.81 Fever presenting with conditions classified elsewhere; R14.0 Abdominal distension (gaseous)
CPT/HCPCS: 36415; 71010; 71275; 74177; 80053; 80162; 82550; 83605; 83735; 84484; 85025; 85610; 86140; 87040; 93005; 93010; 96365; 96367; 99284 ×2; J1956; J3370; J3475; 36430; 80202; 81001; 81003; 85007; 86850; 86900; 86901; 86922; 87088; 87493; 87641; 94761; J1650; J2185; J2270; J7030; J7040; J7050; J7060; P9016

== ENCOUNTER → 2017-01-30 | Outpatient (CLI) | payer OTHER ==
[2017-01-30 13:13] LABS: HEMATOCRIT 32.8 % (42.0-52.0); HEMOGLOBIN 10.2 g/dL (14.0-18.0); MEAN CORPUSCULAR HEMOGLOBIN 24.9 PG (27-31); MEAN CORPUSCULAR HGB CONC 31.1 g/dL (33-37); MEAN CORPUSCULAR VOLUME 80.2 FL (80-90); MEAN PLATELET VOLUME 9.5 FL (7.4-12.2); RED BLOOD COUNT 4.09 10^6/uL (4.70-6.10)
[2017-01-31 16:47] LABS: PLATELET MORPHOLOGY COMMENT NORMAL MORPHOLOGY (NORM); RBC MORPHOLOGY COMMENT SEE COMMENTS (NORM); WBC MORPHOLOGY COMMENT NORMAL MORPHOLOGY (NORM)
[2017-01-31 16:51] LABS: BAND NEUTROPHILS % 9 % (0-10); BASOPHILS % (MANUAL) 1 % (0-1); EOSINOPHILS % (MANUAL) 1 % (0-8); LYMPHOCYTES % (MANUAL) 19 % (10-50); MONOCYTES % (MANUAL) 1 % (0-12); NEUTROPHILS % (MANUAL) 69 % (50-80)
== END ==
LOC: LAB 12:52
PROVIDERS: ATTEND Internal Medicine Medical Oncology
DX: C18.2 Malignant neoplasm of ascending colon (principal)
CPT/HCPCS: 36415; 85007

== ENCOUNTER → 2017-02-06 | Outpatient (CLI) | payer OTHER ==
[2017-02-06 11:59] LABS: HEMATOCRIT 33.7 % (42.0-52.0); HEMOGLOBIN 10.4 g/dL (14.0-18.0); MEAN CORPUSCULAR HEMOGLOBIN 25.5 PG (27-31); MEAN CORPUSCULAR HGB CONC 30.9 g/dL (33-37); MEAN CORPUSCULAR VOLUME 82.6 FL (80-90); MEAN PLATELET VOLUME 9.1 FL (7.4-12.2); RED BLOOD COUNT 4.08 10^6/uL (4.70-6.10)
[2017-02-06 12:33] LABS: CALCIUM 8.6 mg/dL (8.7-10.7); SERUM ALBUMIN 3.1 g/dL (3.5-4.8)
[2017-02-06 12:53] LABS: PLATELET MORPHOLOGY COMMENT NORMAL MORPHOLOGY (NORM); RBC MORPHOLOGY COMMENT SEE COMMENTS (NORM); WBC MORPHOLOGY COMMENT NORMAL MORPHOLOGY (NORM)
[2017-02-06 12:54] LABS: BAND NEUTROPHILS % 2 % (0-10); LYMPHOCYTES % (MANUAL) 18 % (10-50); NEUTROPHILS % (MANUAL) 71 % (50-80)
[2017-02-06 12:55] LABS: BASOPHILS % (MANUAL) 1 % (0-1); EOSINOPHILS % (MANUAL) 0 % (0-8); MONOCYTES % (MANUAL) 8 % (0-12)
== END ==
LOC: LAB 11:34
PROVIDERS: ATTEND Internal Medicine
DX: C18.2 Malignant neoplasm of ascending colon (principal)
CPT/HCPCS: 36415; 80053; 82378; 85007